=== PATIENT | male | born 1960 | race Caucasian/White ===

== ENCOUNTER 2020-09-18 07:42 | Outpatient (REF) | payer OTHER, SELFPAY ==
[2020-09-18 08:20] LABS: Basophils Percent Auto 0.6 % (0-2); Eosinophils Absolute Auto 0.1 X10*3/uL (0.0-0.4); Eosinophils Percent Auto 1.5 % (0-4); Hematocrit 38.8 % (42-52); Imm Gran Abs Auto 0.06 X10*3/uL (0.00-0.03); Imm Gran Pct Auto 0.9 % (0.0-0.4); Lymphocytes Absolute Auto 0.8 X10*3/uL (1.2-4.9); Lymphocytes Percent Auto 12.8 % (20-40); MANUAL DIFF FLAG NO; Mean Corpuscular HGB Conc 33.5 g/dl (31.0-36.0); Mean Corpuscular Hemoglobin 29.2 pg (27.0-33.0); Mean Corpuscular Volume 87.2 fL (80-98); Mean Platelet Volume 8.4 fL (9.4-12.4); Monocytes Absolute Auto 0.7 X10*3/uL (0.1-1.2); Monocytes Percent Auto 10.3 % (2-11); Neutrophils Absolute Auto 4.8 X10*3/uL (2.0-8.3); Neutrophils Percent Auto 73.9 % (45-73); Platelet Count 300 X10*3/uL (160-400); Red Blood Count 4.45 X10*6/uL (4.60-5.80); Red Cell Distribution Width 12.2 % (11.0-16.0); White Blood Count 6.5 X10*3/uL (4.8-10.8)
[2020-09-18 08:42] LABS: Alanine Aminotransferase 34 U/L (0-40); Albumin Level 4.6 g/dL (3.5-5.0); Alkaline Phosphatase 97 U/L (39-117); Anion Gap 13 (12-20); Aspartate Amino Transferase 21 U/L (5-37); Bilirubin Total 0.5 mg/dL (0.0-1.0); Blood Urea Nitrogen 21 mg/dL (9-16); Calcium 9.8 mg/dL (8.4-10.2); Carbon Dioxide 28 mmol/L (22-29); Chloride 101 mmol/L (96-108); Estimated Glomerular Filt Rate > 60; Glucose Fasting 102 mg/dL (60-99); Potassium 4.2 mmol/l (3.3-5.1); Sodium 138 mmol/L (135-145); Total Protein 7.1 g/dL (6.5-8.0)
[2020-09-18 09:02] LABS: T4 Thyroxine 8.1 ug/dL (4.5-12.0); Thyroid Stimulating Hormone 1.85 uIU/mL (0.32-4.0)
[2020-09-18 09:16] LABS: Folate 10.2 ng/mL (> or = 4.0); Vitamin B12 440 pg/mL (200-900)
[2020-09-18 09:25] LABS: Uric Acid 7.9 mg/dL (3.4-7.0)
[2020-09-25 14:17] LABS: Lipoprotein A 203 nmol/L (<75)
== END 2020-09-18 07:43 | disposition home or self-care (01) ==
LOC: HO.LAB 07:42
PROVIDERS: PCP Internal Medicine; Visit Provider Internal Medicine
DX: I48.91 Unspecified atrial fibrillation (principal); E03.9 Hypothyroidism, unspecified; M10.9 Gout, unspecified; I10 Essential (primary) hypertension; E78.5 Hyperlipidemia, unspecified; I77.819 Aortic ectasia, unspecified site; G47.33 Obstructive sleep apnea (adult) (pediatric); F41.9 Anxiety disorder, unspecified; E66.9 Obesity, unspecified
CPT/HCPCS: 36415; 80053; 82607; 82746; 83695; 84436; 84443; 84550; 85025

== ENCOUNTER → 2020-10-21 08:24 | Outpatient (BNVA) | payer OTHER, SELFPAY | PROVIDERS: PCP Internal Medicine; Visit Provider Urology | DX: N52.9 Male erectile dysfunction, unspecified (principal); N40.1 Benign prostatic hyperplasia with lower urinary tract symptoms; R35.0 Frequency of micturition; Z79.899 Other long term (current) drug therapy | CPT/HCPCS: 51798; 81002 ==

== ENCOUNTER 2021-01-04 07:50 | Outpatient (REF) | payer OTHER, SELFPAY ==
[2021-01-04 08:23] LABS: MANUAL DIFF FLAG NO
[2021-01-04 08:31] LABS: Basophils Percent Auto 0.5 % (0-2); Eosinophils Absolute Auto 0.1 X10*3/uL (0.0-0.4); Eosinophils Percent Auto 2.1 % (0-4); Hematocrit 38.3 % (42-52); Hemoglobin 12.7 g/dl (14.0-18.0); Imm Gran Abs Auto 0.02 X10*3/uL (0.00-0.03); Imm Gran Pct Auto 0.4 % (0.0-0.4); Immature Retic Fraction 6.5 % (2.3-13.4); Lymphocytes Absolute Auto 0.8 X10*3/uL (1.2-4.9); Lymphocytes Percent Auto 14.5 % (20-40); Mean Corpuscular HGB Conc 33.2 g/dl (31.0-36.0); Mean Corpuscular Hemoglobin 28.8 pg (27.0-33.0); Mean Corpuscular Volume 86.8 fL (80-98); Mean Platelet Volume 8.5 fL (9.4-12.4); Monocytes Absolute Auto 0.7 X10*3/uL (0.1-1.2); Monocytes Percent Auto 11.5 % (2-11); Platelet Count 274 X10*3/uL (160-400); Red Blood Count 4.41 X10*6/uL (4.60-5.80); Red Cell Distribution Width 12.4 % (11.0-16.0); Retic HGB Equivalent 34.2 pg (30.0-35.0); Reticulocyte Percent 1.7 % (0.5-1.8); Reticulocytes Absolute 0.073 X10*6/uL (0.026-0.095); White Blood Count 5.6 X10*3/uL (4.8-10.8)
[2021-01-04 08:57] LABS: B Type Natriuretic Peptide 12 pg/mL (<100)
[2021-01-04 08:59] LABS: Estimated Average Glucose 105 mg/dL; Hemoglobin A1c % 5.3 %
[2021-01-04 09:03] LABS: Alanine Aminotransferase 34 U/L (0-40); Albumin Level 4.6 g/dL (3.5-5.0); Alkaline Phosphatase 92 U/L (39-117); Anion Gap 11 (12-20); Aspartate Amino Transferase 25 U/L (5-37); Bilirubin Total 0.5 mg/dL (0.0-1.0); Blood Urea Nitrogen 17 mg/dL (9-16); Calcium 9.6 mg/dL (8.4-10.2); Carbon Dioxide 29 mmol/L (22-29); Chloride 103 mmol/L (96-108); Cholesterol 148 mg/dL; Estimated Glomerular Filt Rate > 60; Glucose Random 107 mg/dL (60-115); HDL Cholesterol 29 mg/dL; Iron 73 mcg/dL (45-160); LDL Cholesterol Calculated 93 mg/dl; Percent Iron Saturation 21 % (15-50); Potassium 4.3 mmol/L (3.3-5.1); Sodium 139 mmol/L (135-145); Total Iron Binding Capacity 354 mcg/dL (228-428); Total Protein 7.1 g/dL (6.5-8.0); Triglycerides 130 mg/dL; Unsaturated Iron Binding 281 ug/dL
[2021-01-04 09:20] LABS: Erythrocyte Sedimentation Rate 12 MM/HR (0-15)
[2021-01-04 09:49] LABS: Ferritin 244 ng/mL (20-250); Free T4 (Free Thyroxine) 1.03 ng/dL (0.71-1.85); Thyroid Stimulating Hormone 1.39 uIU/mL (0.32-4.0)
[2021-01-04 10:19] LABS: Prostate Specific Antigen Scr 0.82 ng/mL (<0.05-4.0)
[2021-01-06 03:55] LABS: Folate 11.6 ng/mL (> or = 4.0); Vitamin B12 366 pg/mL (200-900)
[2021-01-09 03:26] LABS: CK-BB None Detected (None Detected); CK-MB 0 % (<5); CK-MM 100 % (95-100); Creatine Kinase,Total,Serum 76 U/L (44-196)
== END 2021-01-04 07:51 | disposition home or self-care (01) ==
LOC: HO.LAB 07:50
PROVIDERS: PCP Internal Medicine; Visit Provider Internal Medicine
DX: R29.898 Other symptoms and signs involving the musculoskeletal system (principal); R73.02 Impaired glucose tolerance (oral); I48.0 Paroxysmal atrial fibrillation; N18.1 Chronic kidney disease, stage 1; E03.9 Hypothyroidism, unspecified; E78.00 Pure hypercholesterolemia, unspecified
CPT/HCPCS: 36415; 80053; 80061; 82552; 82607; 82728; 82746; 83036; 83540; 83880; 84153; 84439; 84443; 85025; 85045; 85652

== ENCOUNTER 2021-02-17 12:06 | Outpatient (REF) | payer OTHER, BC, SELFPAY ==
--- NOTE | ~2021-02-17 | XR_ITS ---
EXAMINATION: XR LUMBAR SPINE XR PELVIS AND HIP, BILATERAL CLINICAL INFORMATION: Lumbar spine 10/31/2015 COMPARISON: None TECHNIQUE: Three views lumbar spine. AP pelvis and bilateral hips five views. FINDINGS: LUMBAR SPINE: There is normal lumbar lordosis. There is mild loss of L2-L3 disc height with ventral spondylosis. Minimal loss of lower thoracic disc levels is noted, as well. The rest of the disc heights are normal. The vertebral heights and alignment is normal. There is mild ventral spondylosis throughout lumbar spine, most prominent at the L2-L3 disc level. No fracture, lytic or sclerotic process seen. The paravertebral soft tissues are normal. AP PELVIS AND BILATERAL HIPS: There is normal symmetry of bilateral hip joints and SI joints. No visible fracture or bony erosive changes. No lytic or sclerotic process seen. The soft tissues are normal. AP and frog-leg views right hip reveal no acute fracture, dislocation or bony erosive changes. No soft tissue calcification. Subchondral cystic changes are seen along the lateral acetabulum. AP and frog-leg views left hip reveal mild lateral acetabular spurring with cystic changes. There is no acute fracture, lytic or sclerotic process. The soft tissues are normal. XR/XR hip BI w PEL1V IMPRESSION: Mild early degenerative changes bilateral lateral hip joints. No acute fracture or dislocation. The rest of the pelvic bones are unremarkable. Degenerative disc changes L2-L3 disc level. There is ventral spondylosis throughout the lumbar spine, most prominent at the L2-L3 disc level.
--- NOTE | ~2021-02-17 | XR_ITS ---
EXAMINATION: XR LUMBAR SPINE XR PELVIS AND HIP, BILATERAL CLINICAL INFORMATION: Lumbar spine 10/31/2015 COMPARISON: None TECHNIQUE: Three views lumbar spine. AP pelvis and bilateral hips five views. FINDINGS: LUMBAR SPINE: There is normal lumbar lordosis. There is mild loss of L2-L3 disc height with ventral spondylosis. Minimal loss of lower thoracic disc levels is noted, as well. The rest of the disc heights are normal. The vertebral heights and alignment is normal. There is mild ventral spondylosis throughout lumbar spine, most prominent at the L2-L3 disc level. No fracture, lytic or sclerotic process seen. The paravertebral soft tissues are normal. AP PELVIS AND BILATERAL HIPS: There is normal symmetry of bilateral hip joints and SI joints. No visible fracture or bony erosive changes. No lytic or sclerotic process seen. The soft tissues are normal. AP and frog-leg views right hip reveal no acute fracture, dislocation or bony erosive changes. No soft tissue calcification. Subchondral cystic changes are seen along the lateral acetabulum. AP and frog-leg views left hip reveal mild lateral acetabular spurring with cystic changes. There is no acute fracture, lytic or sclerotic process. The soft tissues are normal. XR/XR lumbar spine 2-3V IMPRESSION: Mild early degenerative changes bilateral lateral hip joints. No acute fracture or dislocation. The rest of the pelvic bones are unremarkable. Degenerative disc changes L2-L3 disc level. There is ventral spondylosis throughout the lumbar spine, most prominent at the L2-L3 disc level.
== END 2021-02-17 12:07 | disposition home or self-care (01) ==
LOC: HO.XRAY 12:06
PROVIDERS: PCP Internal Medicine; Visit Provider Internal Medicine
DX: R29.898 Other symptoms and signs involving the musculoskeletal system (principal)
CPT/HCPCS: 72100; 73521

== ENCOUNTER 2021-03-18 15:19 | Outpatient (REF) | payer OTHER, BC, SELFPAY ==
--- NOTE | ~2021-03-18 | US_ITS ---
EXAMINATION: US PELVIS LIMITED (BLADDER) CLINICAL INFORMATION: Benign prostatic hyperplasia without lower urinary tract symptoms. COMPARISON: CT abdomen and pelvis without contrast dated 11/14/2019. TECHNIQUE: Real-time imaging of the bladder. FINDINGS: BLADDER: Well distended and normal. Bilateral ureteral jets are demonstrated. Prevoid bladder volume is 153 mL. Postvoid bladder volume is 11.8 mL. Prostate volume is 45 mL. US/US bladder IMPRESSION: No significant postvoid residual. No evidence of obstructive uropathy. Prostate volume is mildly increased.
== END 2021-03-18 15:20 | disposition home or self-care (01) ==
LOC: HO.US 15:19
PROVIDERS: Visit Provider Internal Medicine
DX: N40.0 Benign prostatic hyperplasia without lower urinary tract symptoms (principal)
CPT/HCPCS: 76857

== ENCOUNTER 2021-05-07 13:58 | Outpatient (REF) | payer OTHER, BC, SELFPAY ==
[2021-05-07 15:04] LABS: MANUAL DIFF FLAG NO
[2021-05-07 15:06] LABS: Basophils Percent Auto 0.5 % (0-2); Eosinophils Absolute Auto 0.2 X10*3/uL (0.0-0.4); Eosinophils Percent Auto 2.3 % (0-4); Hematocrit 36.2 % (42-52); Hemoglobin 12.5 g/dl (14.0-18.0); Imm Gran Abs Auto 0.06 X10*3/uL (0.00-0.03); Imm Gran Pct Auto 0.7 % (0.0-0.4); Mean Corpuscular HGB Conc 34.5 g/dl (31.0-36.0); Mean Corpuscular Hemoglobin 29.4 pg (27.0-33.0); Mean Corpuscular Volume 85.2 fL (80-98); Mean Platelet Volume 8.6 fL (9.4-12.4); Monocytes Absolute Auto 0.8 X10*3/uL (0.1-1.2); Monocytes Percent Auto 9.3 % (2-11); Neutrophils Absolute Auto 6.1 X10*3/uL (2.0-8.3); Neutrophils Percent Auto 75.2 % (45-73); Platelet Count 284 X10*3/uL (160-400); Red Blood Count 4.25 X10*6/uL (4.60-5.80); Red Cell Distribution Width 12.3 % (11.0-16.0); White Blood Count 8.2 X10*3/uL (4.8-10.8)
[2021-05-07 15:37] LABS: Alanine Aminotransferase 22 U/L (0-40); Albumin Level 4.7 g/dL (3.5-5.0); Alkaline Phosphatase 93 U/L (39-117); Anion Gap 13 (12-20); Aspartate Amino Transferase 20 U/L (5-37); Bilirubin Total 0.7 mg/dL (0.0-1.0); Blood Urea Nitrogen 25 mg/dL (9-16); C Reactive Protein 0.46 mg/dL (< or = 0.50); Calcium 10.5 mg/dL (8.4-10.2); Carbon Dioxide 27 mmol/L (22-29); Chloride 102 mmol/L (96-108); Estimated Glomerular Filt Rate 55; Glucose Random 105 mg/dL (60-115); Lactate Dehydrogenase 176 U/L (118-273); Potassium 4.1 mmol/L (3.3-5.1); Sodium 138 mmol/L (135-145); Total Protein 7.5 g/dL (6.5-8.0)
[2021-05-07 15:46] LABS: Thyroid Stimulating Hormone 1.34 uIU/mL (0.32-4.0)
[2021-05-07 15:59] LABS: Erythrocyte Sedimentation Rate 18 MM/HR (0-15)
[2021-05-13 13:31] LABS: Vitamin D 25-OH, D2 <4 ng/mL; Vitamin D 25-OH, D3 35 ng/mL; Vitamin D 25-OH, Total 35 ng/mL (30-100)
== END 2021-05-07 13:59 | disposition home or self-care (01) ==
LOC: HO.LAB 13:58
PROVIDERS: PCP Internal Medicine; Visit Provider Student in an Organized Health Care Education/Training Program
DX: M79.10 Myalgia, unspecified site (principal)
CPT/HCPCS: 36415; 80053; 82306; 82550; 83615; 84443; 85025; 85652; 86140

== ENCOUNTER 2021-05-22 09:35 | Outpatient (REF) | payer OTHER, BC, SELFPAY ==
[2021-05-23 17:51] LABS: PTHI 63 pg/mL (14-64)
== END 2021-05-22 09:36 | disposition home or self-care (01) ==
LOC: HO.LAB 09:35
PROVIDERS: PCP Internal Medicine; Visit Provider Student in an Organized Health Care Education/Training Program
DX: M79.10 Myalgia, unspecified site (principal); M10.9 Gout, unspecified; E83.52 Hypercalcemia; N18.1 Chronic kidney disease, stage 1
CPT/HCPCS: 36415; 83970; 84550

== ENCOUNTER 2022-05-15 13:30 | Outpatient (REF) | payer OTHER, SELFPAY ==
[2022-05-15 13:41] LABS: MANUAL DIFF FLAG NO
[2022-05-15 14:15] LABS: Basophils Percent Auto 0.6 % (0-2); Eosinophils Absolute Auto 0.2 X10*3/uL (0.0-0.4); Eosinophils Percent Auto 2.2 % (0-4); Hematocrit 35.9 % (42.0-52.0); Hemoglobin 12.2 g/dl (14.0-18.0); Imm Gran Abs Auto 0.06 X10*3/uL (0.00-0.03); Imm Gran Pct Auto 0.8 % (0.0-0.4); Lymphocytes Percent Auto 14.1 % (20-40); Mean Corpuscular Hemoglobin 29.3 pg (27.0-33.0); Mean Corpuscular Volume 86.1 fL (80.0-98.0); Mean Platelet Volume 8.5 fL (9.4-12.4); Monocytes Absolute Auto 0.8 X10*3/uL (0.1-1.2); Monocytes Percent Auto 11.3 % (2-11); Neutrophils Absolute Auto 5.1 x10*3/uL (2.0-8.3); Platelet Count 299 X10*3/uL (160-400); Red Blood Count 4.17 X10*6/uL (4.60-5.80); Red Cell Distribution Width 12.9 % (11.0-16.0); White Blood Count 7.2 X10*3/uL (4.8-10.8)
[2022-05-15 14:57] LABS: Erythrocyte Sedimentation Rate 13 MM/HR (0-15)
[2022-05-15 15:05] LABS: Alanine Aminotransferase 26 U/L (0-40); Albumin Level 4.5 g/dL (3.5-5.0); Alkaline Phosphatase 112 U/L (39-117); Anion Gap 15 (12-20); Aspartate Amino Transferase 19 U/L (5-37); Bilirubin Total 0.5 mg/dL (0.0-1.0); Blood Urea Nitrogen 21 mg/dL (9-16); C Reactive Protein 0.27 mg/dL (< or = 0.50); Calcium 10.3 mg/dL (8.4-10.2); Carbon Dioxide 25 mmol/L (22-29); Chloride 103 mmol/L (96-108); Estimated Glomerular Filt Rate 56; Glucose Random 126 mg/dL (60-115); Potassium 4.1 mmol/L (3.3-5.1); Sodium 139 mmol/L (135-145); Total Protein 7.3 g/dL (6.5-8.0)
[2022-05-15 15:15] LABS: Uric Acid 6.2 mg/dL (3.4-7.0)
== END 2022-05-15 13:31 | disposition home or self-care (01) ==
LOC: HO.LAB 13:30
PROVIDERS: PCP Internal Medicine; Visit Provider Internal Medicine
DX: M10.9 Gout, unspecified (principal)
CPT/HCPCS: 36415; 80053; 84443; 84550; 85025; 85652; 86140

== ENCOUNTER 2022-09-01 07:02 | Outpatient (REF) | payer OTHER, SELFPAY ==
[2022-09-01 07:09] LABS: MANUAL DIFF FLAG NO
[2022-09-01 07:45] LABS: Basophils Absolute Auto 0.1 X10*3/uL (0.0-0.2); Basophils Percent Auto 0.6 % (0-2); Eosinophils Absolute Auto 0.2 X10*3/uL (0.0-0.4); Eosinophils Percent Auto 2.7 % (0-4); Hematocrit 40.8 % (42.0-52.0); Hemoglobin 13.3 g/dl (14.0-18.0); Imm Gran Abs Auto 0.05 X10*3/uL (0.00-0.03); Imm Gran Pct Auto 0.6 % (0.0-0.4); Immature Retic Fraction 8.6 % (2.3-13.4); Mean Corpuscular HGB Conc 32.6 g/dl (31.0-36.0); Mean Corpuscular Hemoglobin 28.6 pg (27.0-33.0); Mean Corpuscular Volume 87.7 fL (80.0-98.0); Mean Platelet Volume 8.4 fL (9.4-12.4); Monocytes Absolute Auto 1.2 X10*3/uL (0.1-1.2); Monocytes Percent Auto 14.1 % (2-11); Neutrophils Absolute Auto 5.8 x10*3/uL (2.0-8.3); Platelet Count 285 X10*3/uL (160-400); Red Blood Count 4.65 X10*6/uL (4.60-5.80); Red Cell Distribution Width 13.4 % (11.0-16.0); Retic HGB Equivalent 35.2 pg (30.0-35.0); Reticulocyte Percent 1.6 % (0.5-1.8); Reticulocytes Absolute 0.076 X10*6/uL (0.026-0.095); White Blood Count 8.3 X10*3/uL (4.8-10.8)
[2022-09-01 07:50] LABS: Estimated Average Glucose 111 mg/dL; Hemoglobin A1C 120.8209 umol/L; Hemoglobin A1c % 5.5 %
[2022-09-01 08:03] LABS: Alanine Aminotransferase 31 U/L (0-40); Albumin Level 4.5 g/dL (3.5-5.0); Alkaline Phosphatase 116 U/L (39-117); Anion Gap 15 (12-20); Aspartate Amino Transferase 18 U/L (5-37); Bilirubin Total 0.3 mg/dL (0.0-1.0); Blood Urea Nitrogen 17 mg/dL (9-16); Calcium 9.9 mg/dL (8.4-10.2); Carbon Dioxide 29 mmol/L (22-29); Chloride 101 mmol/L (96-108); Cholesterol 158 mg/dL; Estimated Glomerular Filt Rate 57; Glucose Random 88 mg/dL (60-115); HDL Cholesterol 31 mg/dL; Iron 44 mcg/dL (45-160); LDL Cholesterol Calculated 95 mg/dl; Percent Iron Saturation 13 % (15-50); Potassium 4.5 mmol/L (3.3-5.1); Sodium 140 mmol/L (135-145); Total Iron Binding Capacity 340 mcg/dL (228-428); Total Protein 7.4 g/dL (6.5-8.0); Triglycerides 162 mg/dL; Unsaturated Iron Binding 296 ug/dL
[2022-09-01 08:12] LABS: B Type Natriuretic Peptide 15 pg/mL (<100)
[2022-09-01 08:28] LABS: Ferritin 222 ng/mL (20-250); Free T4 (Free Thyroxine) 0.95 ng/dL (0.71-1.85); Prostate Specific Antigen Scr 1.16 ng/mL (<0.05-4.0); Thyroid Stimulating Hormone 2.33 uIU/mL (0.32-4.0)
[2022-09-01 08:37] LABS: Folate 10.2 ng/mL (> or = 4.0); Vitamin B12 413 pg/mL (200-900)
== END 2022-09-01 07:03 | disposition home or self-care (01) ==
LOC: HO.LAB 07:02
PROVIDERS: PCP Internal Medicine; Visit Provider Internal Medicine
DX: E03.9 Hypothyroidism, unspecified (principal); N18.1 Chronic kidney disease, stage 1; N40.1 Benign prostatic hyperplasia with lower urinary tract symptoms; R35.0 Frequency of micturition; E78.00 Pure hypercholesterolemia, unspecified; R73.02 Impaired glucose tolerance (oral); I48.0 Paroxysmal atrial fibrillation; Z12.5 Encounter for screening for malignant neoplasm of prostate
CPT/HCPCS: 36415; 80053; 80061; 82607; 82728; 82746; 83036; 83540; 83880; 84153; 84439; 84443; 85025; 85045

== ENCOUNTER 2023-02-18 06:36 | Outpatient (REF) | payer OTHER, SELFPAY ==
[2023-02-18 06:46] LABS: MANUAL DIFF FLAG NO
[2023-02-18 07:22] LABS: Basophils Absolute Auto 0.1 X10*3/uL (0.0-0.2); Basophils Percent Auto 0.8 % (0-2); Eosinophils Absolute Auto 0.2 X10*3/uL (0.0-0.4); Hematocrit 40.8 % (42.0-52.0); Hemoglobin 13.5 g/dl (14.0-18.0); Imm Gran Abs Auto 0.06 X10*3/uL (0.00-0.03); Imm Gran Pct Auto 0.8 % (0.0-0.4); Immature Retic Fraction 11.8 % (2.3-13.4); Lymphocytes Absolute Auto 1.1 X10*3/uL (1.2-4.9); Lymphocytes Percent Auto 15.3 % (20-40); Mean Corpuscular HGB Conc 33.1 g/dl (31.0-36.0); Mean Corpuscular Hemoglobin 28.6 pg (27.0-33.0); Mean Corpuscular Volume 86.4 fL (80.0-98.0); Mean Platelet Volume 8.4 fL (9.4-12.4); Monocytes Absolute Auto 0.7 X10*3/uL (0.1-1.2); Monocytes Percent Auto 9.4 % (2-11); Neutrophils Absolute Auto 5.2 x10*3/uL (2.0-8.3); Neutrophils Percent Auto 70.7 % (45-73); Platelet Count 295 X10*3/uL (160-400); Red Blood Count 4.72 X10*6/uL (4.60-5.80); Retic HGB Equivalent 34.6 pg (30.0-35.0); Reticulocyte Percent 1.8 % (0.5-1.8); Reticulocytes Absolute 0.084 X10*6/uL (0.026-0.095); White Blood Count 7.3 X10*3/uL (4.8-10.8)
[2023-02-18 07:59] LABS: Alanine Aminotransferase 36 U/L (0-40); Albumin Level 4.5 g/dL (3.5-5.0); Alkaline Phosphatase 121 U/L (39-117); Anion Gap 12 (12-20); Aspartate Amino Transferase 23 U/L (5-37); Bilirubin Total 0.6 mg/dL (0.0-1.0); Blood Urea Nitrogen 20 mg/dL (9-16); Carbon Dioxide 27 mmol/L (22-29); Chloride 105 mmol/L (96-108); Cholesterol 154 mg/dL; Estimated Glomerular Filt Rate 57; Glucose Random 100 mg/dL (60-115); HDL Cholesterol 28 mg/dL; Iron 66 mcg/dL (45-160); LDL Cholesterol Calculated 96 mg/dl; Percent Iron Saturation 22 % (15-50); Potassium 4.3 mmol/L (3.3-5.1); Sodium 140 mmol/L (135-145); Total Iron Binding Capacity 297 mcg/dL (228-428); Triglycerides 154 mg/dL; Unsaturated Iron Binding 231 ug/dL
[2023-02-18 09:01] LABS: Ferritin 237 ng/mL (20-250); Folate 4.8 ng/mL (> or = 4.0); Free T4 (Free Thyroxine) 0.95 ng/dL (0.71-1.85); Prostate Specific Antigen Scr 0.98 ng/mL (<0.05-4.0); Thyroid Stimulating Hormone 2.08 uIU/mL (0.32-4.0); Vitamin B12 382 pg/mL (200-900)
== END 2023-02-18 06:37 | disposition home or self-care (01) ==
LOC: HO.LAB 06:36
PROVIDERS: PCP Internal Medicine; Visit Provider Internal Medicine
DX: I48.0 Paroxysmal atrial fibrillation (principal); E78.00 Pure hypercholesterolemia, unspecified; Z12.5 Encounter for screening for malignant neoplasm of prostate
CPT/HCPCS: 36415; 80053; 80061; 82607; 82728; 82746; 83540; 84153; 84439; 84443; 85025; 85045

== ENCOUNTER 2023-05-25 08:51 | Outpatient (AMB) | payer MEDICARE, OTHER, SELFPAY ==
[2023-05-25 08:55] VITALS: BP 140/78; PULSE 69; O2SAT 97; BMI 34.7
--- NOTE | 2023-05-25 08:55 | A.OFFPC_ITS ---
Vital Signs 05/25/23 08:55 Height 6 ft 2 in Weight 270 lb BMI 34.7 BP 140/78 H Blood Pressure Location Lt brachial Position Sitting Pulse 69 Pulse Source Pulse Oximeter Pulse Oximetry (%) 97 Oxygen Delivery Method Room Air Intake Visit Reasons: Annual Exam Allergies No Known Allergies Allergy (Verified 05/25/23 08:56) Medication List - Last Reconciled 05/25/23 by Ramon Baird MD allopurinol 300 mg PO DAILY amitriptyline 25 mg PO BEDTIME 90 days apixaban (Eliquis) 5 mg PO BID atorvastatin 20 mg PO DAILY carvedilol 25 mg PO BID chlorthalidone 0.5 tablet daily; clindamycin phosphate 1% 1 appl topical DAILY flecainide 100 mg PO Q12H levothyroxine 175 mcg PO DAILY lisinopril 40 mg PO DAILY tadalafil 20 mg PO DAILY PRN Tobacco use date assessed: 02/25/23 Fall risk assessment: No Falls in past year Last assessed Fall Risk: 05/25/23 Dental Screening Dental Screen Date: 05/25/23 Did you have a dental visit in the last 12 months?: Yes Did you have a dental problem in the last 6 months where you did not have access to dental care?: No Was dental information given to patient?: Patient has dentist HPI Annual Exam HPI Details 63-year-old obese male with atrial fibrillation hypothyroidism hypertension hypercholesterolemia impaired glucose tolerance BPH chronic kidney disease obstructive sleep apnea and gout last seen in February 2023. Patient is here for physical exam. Review of the notes had an echocardiogram done March 2023 showing normal left ventricular size and systolic function mild left ventricular hypertrophy left ventricular ejection fraction is 60-65% normal right ventricular size and function mild mitral regurgitation mild increased ascending aorta size to 3.9. No change since 2019. R shoulder pain - repair for tear Dr. Deleon-May 2023 repair arthroscopic- [facility] Medical History (Updated 05/25/23 @ 09:22 by Ramon Baird MD) Anxiety Aortic dilatation BPH (benign prostatic hyperplasia) BPH (benign prostatic hyperplasia) Erectile dysfunction Gout Hypercholesterolemia Hypertension Hypothyroid Impaired glucose tolerance Interstitial cystitis Lumbar spondylosis Obesity (BMI 30-39.9) Obstructive sleep apnea Paroxysmal atrial fibrillation Surgical History (Updated 05/21/22 @ 08:50 by Ramon Baird MD) History of ankle surgery History of prostatectomy Family History (Updated 02/25/23 @ 08:22 by Noemi Clemons CMA) Father Stroke Mother Alzheimers disease Social History (Updated 05/25/23 @ 09:32 by Ramon Baird MD) Household Members: Spouse Housing: House Alcohol intake: current Alcohol intake frequency: holidays/special occasions only Patient Tobacco Use Status: Never used Tobacco e-Cigarette/Vaping Use: Never Used Second Hand Smoke Exposure: No service: No Current occupational status: employed Cognitive needs: No Hearing needs: No Vision needs: No Questionnaire PHQ-9 Over the last 2 weeks, how often have you been bothered by any of the following problems? 1. Little interest or pleasure in doing things: not at all 2. Feeling down, depressed, or hopeless: not at all 3. Trouble falling or staying asleep, or sleeping too much: not at all 4. Feeling tired or having little energy: not at all 5. Poor appetite or overeating: not at all 6. Feeling bad about yourself - or that you are a failure or have let yourself or your family down: not at all 7. Trouble concentrating on things, such as reading the newspaper or watching television: not at all 8. Moving or speaking so slowly that other people could have noticed. Or the opposite - being so fidgety or restless that you have been moving around a lot more than usual: not at all 9. Thoughts that you would be better off or of hurting yourself in some way: not at all Total score: 0 Depression Screening Interpretation: Negative Source: Developed by Drs. Scott Barnes, Jaren Barton and colleagues, with an educational travon from [employer]. Thrive Questionnaire Date Thrive assessed: 02/25/23 AUDIT C Alcohol Use Questionnaire (AUDIT-C) 1. How often do you have a drink containing alcohol?: 2-3 times a week 2. How many drinks containing alcohol do you have on a typical day when you are drinking?: 1 or 2 3. How often do you have six or more drinks on one occasion?: Never Total Score: 3 LUISA-7 AMB Questionnaire LUISA-7 Date LUISA - 7 assessed: 02/25/23 Source: Developed by Drs. Scott Barnes, Jaren Barton and colleagues, with an educational travon from [employer]. Review of Systems Const Denies poor appetite and Denies weakness Eyes Denies no additional complaints ENT Reports Normal hearing present, Denies dizziness, Denies nasal congestion, Denies tinnitus and Denies sore throat Card Denies chest pain, Denies syncope, Denies rapid heart rate and Denies dyspnea Resp Denies cough and Denies dyspnea GI Denies change in stool character, Reports constipation, Denies diarrhea, Denies nausea and Denies vomiting Denies dysuria and Denies urinary frequency Neuro Reports Normal hearing present, Denies confusion, Denies dizziness, Denies syncope and Denies weakness Psych Denies confusion Physical exam (Primary Care) Vital Signs: Last Vital Signs Pulse 69 05/25/23 08:55 BP 140/78 H 05/25/23 08:55 Pulse Ox 97 05/25/23 08:55 Oxygen Delivery Method Room Air 05/25/23 08:55 BMI result Body Mass Index 34.7 Tobacco/Smoking Status: Tobacco use Status Tobacco use date assessed 02/25/23 05/25/23 08:56 Patient Tobacco Use Status Never used Tobacco 05/25/23 08:56 e-Cigarette/Vaping Use Never Used 05/25/23 08:56 PHQ-9: PHQ-9 Score PHQ-9: Total score 0 05/25/23 09:07 Depression Screening Interpretation: Negative Thrive Assessment: Date of Thrive Assessment Date Thrive assessed 02/25/23 05/25/23 08:56 Const General: No confusion Orientation/consciousness: No confusion HENMT Head: Yes normocephalic Ears: external ears normal and TM's normal bilaterally Face and sinus: Yes normal facial exam Mouth: moist mucous membranes Throat: Yes tonsils normal Eyes Conjunctivae: conjunctivae normal Pupils: Equal, round and reactive pupils present and Pupil accommodation reflex normal Direct Ophthalmoscopy: normal light reflex Neck Neck: No lymphadenopathy Thyroid: Thyroid normal Chest Chest palpation & inspection: normal inspection of the chest Resp Effort & Inspection: normal respiratory effort and no audible wheezes Auscultation: clear to auscultation bilaterally, no crackles, no wheezes and lung sounds not diminished Cardio Rate: regular rate Rhythm: regular rhythm Peripheral pulses: radial pulses present and dorsalis pedis present GI Other: guaiac negative prostate n Palpation (GI): no masses Auscultation: normal bowel sounds and normoactive bowel sounds Skin General skin exam: no rashes or lesions noted Rashes: no rashes Neuro General: No confusion Cranial nerves: Yes Equal, round and reactive pupils present and Yes Normal hearing present Cognition (Neuro): normal cognition Gait exam (Neuro): Normal gait present Motor exam (neuro): 5/5 motor strength present throughout Deep tendon reflexes (DTR's): Right brachioradialis reflex intensity grade: 2+, Left brachioradialis reflex intensity grade: 2+, Right patellar reflex intensity grade: 2+ and Left patellar reflex intensity grade: 2+ Extrem General: No edema Assessment and Plan Assessment & Plan (1) Annual physical exam: Code(s): Z00.00 - Encounter for general adult medical examination without abnormal findings (2) Paroxysmal atrial fibrillation: Comment: Fourteen day event monitor August 2020 ablation, [place] February 2019 cardioversion August 2019 Nuclear scan myocardial normal my 56% September 2019March 2020 echo EF 65-70% ascending aorta 3.9 cm, March 2023 Code(s): I48.0 - Paroxysmal atrial fibrillation Plan: Continue with anticoagulation with Eliquis and flecainide (3) Hypothyroid: Code(s): E03.9 - Hypothyroidism, unspecified Qualifiers: Hypothyroidism type: acquired Qualified Code(s): E03.9 - Hypothyroidism, unspecified Plan: Continue with the thyroid medication (4) Hypertension: Code(s): I10 - Essential (primary) hypertension Qualifiers: Hypertension type: essential hypertension Qualified Code(s): I10 - Essential (primary) hypertension Plan: Continue with blood pressure medication. Decrease salt intake and exercise patient is taking carvedilol 25 mg twice a day chlorthalidone lisinopril 40 mg once a day (5) Hypercholesterolemia: Code(s): E78.00 - Pure hypercholesterolemia, unspecified Plan: Avoid fried foods, chicken skin, eggs, butter margarine, pastries and meat. Be it pork or beef they have a lot of cholesterol LDL goal of less than 130 patient is taking atorvastatin 20 mg once a day (6) Impaired glucose tolerance: Code(s): R73.02 - Impaired glucose tolerance (oral) Plan: Decrease the amount of carbohydrate intake, pasta, bread, rice and potatoes are all sugar and that is aside from all the sweet stuff, remember that fruits are good but they are Sweet also. (7) BPH (benign prostatic hyperplasia): Code(s): N40.0 - Benign prostatic hyperplasia without lower urinary tract symptoms Qualifiers: Lower urinary tract symptom presence: symptoms present Lower urinary tract symptom detail: urinary frequency Qualified Code(s): N40.1 - Benign pr ostatic hyperplasia with lower urinary tract symptoms; R35.0 - Frequency of micturition Plan: Continue with the Elavil (8) Chronic kidney disease (CKD) stage G1/A1, glomerular filtration rate (GFR) equal to or greater than 90 mL/min/1.73 square meter and albuminuria creatinine ratio less than 30 mg/g: Code(s): N18.1 - Chronic kidney disease, stage 1 Plan: Stable keep well hydrated avoid NSAIDs (9) Obesity (BMI 30-39.9): Code(s): E66.9 - Obesity, unspecified Plan: Diet and exercise (10) Obstructive sleep apnea: Comment: With CPAP Code(s): G47.33 - Obstructive sleep apnea (adult) (pediatric) Plan: Continue with CPAP more than 4 hours a night and benefits from this Medications: Refilled amitriptyline 25 mg PO BEDTIME 90 days 90 tabs 2RF atorvastatin 20 mg PO DAILY 90 tabs 3RF E78.00 - Pure hypercholesterolemia, uns pecified levothyroxine 175 mcg PO DAILY 90 tabs 3RF lisinopril 40 mg PO DAILY 90 tabs 3RF tadalafil administer approximately 30min before sexual activity; do not use more than 1 dose per 24hrs 20 mg PO DAILY PRN 45 tabs 3RF sexual activity N52.9 - Male erectile dysfunction, unspecified Coding Level of Care Code Est Pt Prev Care >65y([id number]) Diagnoses Annual physical exam Z00.00 Paroxysmal atrial fibrillation I48.0 Hypothyroid E03.9 Hypothyroidism type: acquired Hypertension I10 Hypertension type: essential hypertension Hypercholesterolemia E78.00 Impaired glucose tolerance R73.02 BPH (benign prostatic hyperplasia) N40.1; R35.0 Lower urinary tract symptom presence: symptoms present Lower urinary tract symptom detail: urinary frequency Chronic kidney disease (CKD) stage G1/A1, glomerular filtration rate (GFR) equal to or greater than 90 mL/min/1.73 square meter and albuminuria creatinine ratio less than 30 mg/g N18.1 Obesity (BMI 30-39.9) E66.9 Obstructive sleep apnea G47.33
== END 2023-05-25 09:57 | disposition home or self-care (01) ==
PROVIDERS: PCP Internal Medicine; Visit Provider Internal Medicine
DX: Z00.00 Encounter for general adult medical examination without abnormal findings (principal); I48.0 Paroxysmal atrial fibrillation; I12.9 Hypertensive chronic kidney disease with stage 1 through stage 4 chronic kidney disease, or unspecified chronic kidney disease; Z23 Encounter for immunization; N18.1 Chronic kidney disease, stage 1; E03.9 Hypothyroidism, unspecified; E78.00 Pure hypercholesterolemia, unspecified; R73.02 Impaired glucose tolerance (oral); N40.1 Benign prostatic hyperplasia with lower urinary tract symptoms; R35.0 Frequency of micturition; E66.9 Obesity, unspecified; G47.33 Obstructive sleep apnea (adult) (pediatric)
CPT/HCPCS: 90471; 90677; 99397

== ENCOUNTER 2023-08-26 07:10 | Outpatient (REF) | payer MEDICARE, OTHER, SELFPAY ==
[2023-08-26 07:20] LABS: MANUAL DIFF FLAG NO
[2023-08-26 08:12] LABS: Basophils Absolute Auto 0.1 X10*3/uL (0.0-0.2); Basophils Percent Auto 1.1 % (0-2); Eosinophils Absolute Auto 0.2 X10*3/uL (0.0-0.4); Eosinophils Percent Auto 3.5 % (0-4); Hematocrit 41.3 % (42.0-52.0); Hemoglobin 13.8 g/dl (14.0-18.0); Imm Gran Abs Auto 0.06 X10*3/uL (0.00-0.03); Lymphocytes Absolute Auto 1.1 X10*3/uL (1.2-4.9); Lymphocytes Percent Auto 17.5 % (20-40); Mean Corpuscular HGB Conc 33.4 g/dl (31.0-36.0); Mean Corpuscular Hemoglobin 29.4 pg (27.0-33.0); Mean Corpuscular Volume 87.9 fL (80.0-98.0); Mean Platelet Volume 8.5 fL (9.4-12.4); Monocytes Absolute Auto 0.9 X10*3/uL (0.1-1.2); Neutrophils Absolute Auto 3.9 x10*3/uL (2.0-8.3); Neutrophils Percent Auto 62.9 % (45-73); Platelet Count 265 X10*3/uL (160-400); Red Cell Distribution Width 13.2 % (11.0-16.0); White Blood Count 6.2 X10*3/uL (4.8-10.8)
[2023-08-26 08:43] LABS: Alanine Aminotransferase 34 U/L (0-40); Albumin Level 4.5 g/dL (3.5-5.0); Alkaline Phosphatase 107 U/L (39-117); Anion Gap 10 (12-20); Aspartate Amino Transferase 27 U/L (5-37); Bilirubin Total 0.5 mg/dL (0.0-1.0); Blood Urea Nitrogen 18 mg/dL (9-16); Calcium 10.3 mg/dL (8.4-10.2); Carbon Dioxide 30 mmol/L (22-29); Chloride 103 mmol/L (96-108); Cholesterol 176 mg/dL (<200); Estimated Glomerular Filt Rate > 60; Glucose Random 106 mg/dL (60-115); HDL Cholesterol 32 mg/dL (>40); LDL Cholesterol Calculated 116 mg/dL (<100); Potassium 4.2 mmol/L (3.3-5.1); Sodium 139 mmol/L (135-145); Total Protein 7.7 g/dL (6.5-8.0); Triglycerides 141 mg/dL (<150); Uric Acid 6.3 mg/dL (3.4-7.0)
[2023-08-26 09:02] LABS: Free T4 (Free Thyroxine) 1.08 ng/dL (0.71-1.85)
[2023-08-26 09:14] LABS: Vitamin B12 366 pg/mL (200-900)
== END 2023-08-26 07:11 | disposition home or self-care (01) ==
LOC: HO.LAB 07:10
PROVIDERS: PCP Internal Medicine; Visit Provider Internal Medicine
DX: N18.1 Chronic kidney disease, stage 1 (principal); E78.00 Pure hypercholesterolemia, unspecified; R73.02 Impaired glucose tolerance (oral); M10.9 Gout, unspecified
CPT/HCPCS: 36415; 80053; 80061; 82607; 82746; 84439; 84443; 84550; 85025

== ENCOUNTER 2023-09-01 08:20 | Outpatient (AMB) | payer MEDICARE, OTHER, SELFPAY ==
--- NOTE | 2023-09-01 08:24 | A.OFFPC_ITS ---
Vital Signs 09/01/23 08:25 Height 6 ft 2 in Weight 274 lb BMI 35.2 BP 134/72 Blood Pressure Location Lt brachial Position Sitting Pulse 73 Pulse Source Pulse Oximeter Pulse Oximetry (%) 98 Oxygen Delivery Method Room Air Intake Visit Reasons: afib Allergies No Known Allergies Allergy (Verified 09/01/23 08:25) Medication List - Last Reconciled 09/01/23 by Ramon Baird MD allopurinol 300 mg PO DAILY alprazolam 1 mg PO DAILY PRN amitriptyline 25 mg PO BEDTIME 90 days apixaban (Eliquis) 5 mg PO BID atorvastatin 20 mg PO DAILY carvedilol 25 mg PO BID chlorthalidone 0.5 tablet daily; clindamycin phosphate 1% 1 appl topical DAILY flecainide 100 mg PO Q12H levothyroxine 175 mcg PO DAILY lisinopril 40 mg PO DAILY tadalafil 20 mg PO DAILY PRN Tobacco use date assessed: 02/25/23 Fall risk assessment: No Falls in past year Last assessed Fall Risk: 09/01/23 Dental Screening Dental Screen Date: 09/01/23 Did you have a dental visit in the last 12 months?: Yes Did you have a dental problem in the last 6 months where you did not have access to dental care?: No Was dental information given to patient?: Patient has dentist HPI afib HPI Details 63-year-old obese male with atrial fibri llation, hypothyroidism, hypertension, hypercholesterolemia, impaired glucose tolerance chronic kidney disease obstructive sleep apnea and BPH last seen for physical in May 2023. Patient's colonoscopy is up-to-date August 2019 blood work done 07/19/2023 [employer] shows a mildly elevated blood sugar of 118 creatinine of 1.1 alkaline phosphatase mildly elevated 127 ALT of 42 normal C reactive protein and sed rate normal uric acid normal blood count. Patient has followed up with Cardiology June 2023. Had twice of pulmonary vein isolation March 2020 in October 2020 but still had recurrent atrial fibrillation patient has a planned right shoulder surgery moderate risk. 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 Deleon patient did have the surgery done and doing fine still limited on elevation of the right shoulder but patient is doing physical therapy. Patient has an upcoming travel and would like to have some alprazolam to help anxiety. With the Eliquis semi annual renal function test. [facility] Medical History (Updated 09/01/23 @ 08:46 by Ramon Baird MD) BPH (benign prostatic hyperplasia) Erectile dysfunction Obstructive sleep apnea Anxiety Aortic dilatation Obesity (BMI 30-39.9) Lumbar spondylosis Interstitial cystitis BPH (benign prostatic hyperplasia) Impaired glucose tolerance Hypercholesterolemia Hypertension Gout Hypothyroid Paroxysmal atrial fibrillation Surgical History (Updated 05/21/22 @ 08:50 by Ramon Baird MD) History of prostatectomy History of ankle surgery Family History (Updated 02/25/23 @ 08:22 by Noemi Clemons [facility]) Father Stroke Mother Alzheimers disease Social History (Updated 05/25/23 @ 09:32 by Ramon Baird MD) Household Members: Spouse Housing: House Alcohol intake: current Alcohol intake frequency: holidays/special occasions only Patient Tobacco Use Status: Never used Tobacco e-Cigarette/Vaping Use: Never Used Second Hand Smoke Exposure: No service: No Current occupational status: employed Cognitive needs: No Hearing needs: No Vision needs: No Questionnaire PHQ-9 Over the last 2 weeks, how often have you been bothered by any of the following problems? 1. Little interest or pleasure in doing things: not at all 2. Feeling down, depressed, or hopeless: not at all 3. Trouble falling or staying asleep, or sleeping too much: not at all 4. Feeling tired or having little energy: not at all 5. Poor appetite or overeating: not at all 6. Feeling bad about yourself - or that you are a failure or have let yourself or your family down: not at all 7. Trouble concentrating on things, such as reading the newspaper or watching television: not at all 8. Moving or speaking so slowly that other people could have noticed. Or the opposite - being so fidgety or restless that you have been moving around a lot more than usual: not at all 9. Thoughts that you would be better off or of hurting yourself in some way: not at all Total score: 0 Depression Screening Interpretation: Negative Depression Screening Done: Yes Source: Developed by Drs. Scott L. MollyCami brar Kurt Kroenke and colleagues, with an educational travon from [employer]. Thrive Questionnaire Date Thrive assessed: 02/25/23 AUDIT C Alcohol Use Questionnaire (AUDIT-C) 1. How often do you have a drink containing alcohol?: 2-3 times a week 2. How many drinks containing alcohol do you have on a typical day when you are drinking?: 1 or 2 3. How often do you have six or more drinks on one occasion?: Never Total Score: 3 LUISA-7 AMB Questionnaire LUISA-7 Date LUISA - 7 assessed: 02/25/23 Source: Developed by Drs. Scott Barnes, Jaren Barton and colleagues, with an educational travon from [employer]. Physical exam (Primary Care) Vital Signs: Last Vital Signs Pulse 73 09/01/23 08:25 BP 134/72 09/01/23 08:25 Pulse Ox 98 09/01/23 08:25 Oxygen Delivery Method Room Air 09/01/23 08:25 BMI result Body Mass Index 35.2 Tobacco/Smoking Status: Tobacco use Status Tobacco use date assessed 02/25/23 09/01/23 08:29 Patient Tobacco Use Status Never used Tobacco 09/01/23 08:29 e-Cigarette/Vaping Use Never Used 09/01/23 08:29 PHQ-9: PHQ-9 Score PHQ-9: Total score 0 09/01/23 08:29 Depression Screening Interpretation: Negative Thrive Assessment: Date of Thrive Assessment Date Thrive assessed 02/25/23 09/01/23 08:29 Const General: alert; No acute distress Eyes Conjunctivae: conjunctivae normal Resp Auscultation: clear to auscultation bilaterally Cardio Rate: regular rate Rhythm: regular rhythm GI Inspection: Yes normal to inspection Extrem General: Yes normal to inspection and No edema Assessment and Plan Assessment & Plan (1) Paroxysmal atrial fibrillation: Comment: Fourteen day event monitor August 2020 ablation, [place]ras February 2019 cardioversion August 2019 Nuclear scan myocardial normal my 56% September 2019March 2020 echo EF 65-70% ascending aorta 3.9 cm, March 2023 Code(s): I48.0 - Paroxysmal atrial fibrillation Plan: Continue with anticoagulation patient is being followed up by Cardiology (2) Hypothyroid: Code(s): E03.9 - Hypothyroidism, unspecified Qualifiers: Hypothyroidism type: acquired Qualified Code(s): E03.9 - Hypothyroidism, unspecified Plan: Continue with thyroid Medicaid (3) Hypertension: Code(s): I10 - Essential (primary) hypertension Qualifiers: Hypertension type: essential hypertension Qualified Code(s): I10 - Essential (primary) hypertension Plan: Continue with blood pressure medication. Decrease salt intake and exercise on carvedilol 25 mg twice a day chlorthalidone lisinopril 40 mg once a day (4) Impaired glucose tolerance: Code(s): R73.02 - Impaired glucose tolerance (oral) Plan: Decrease the amount of carbohydrate intake, pasta, bread, rice and potatoes are all sugar and that is aside from all the sweet stuff, remember that fruits are good but they are Sweet also. (5) Hypercholesterolemia: Code(s): E78.00 - Pure hypercholesterolemia, unspecified Plan: Avoid fried foods, chicken skin, eggs, butter margarine, pastries and meat. Be it pork or beef they have a lot of cholesterol LDL goal of less than 130 and tr iglyceride of less than 150 on atorvastatin 20 mg once a day (6) BPH (benign prostatic hyperplasia): Code(s): N40.0 - Benign prostatic hyperplasia without lower urinary tract symptoms Qualifiers: Lower urinary tract symptom presence: symptoms present Lower urinary tract symptom detail: urinary frequency Qualified Code(s): N40.1 - Benign prostatic hyperplasia with lower urinary tract symptoms; R35.0 - Frequency of micturition Plan: Stable on tadalafil (7) Chronic kidney disease (CKD) stage G1/A1, glomerular filtration rate (GFR) equal to or greater than 90 mL/min/1.73 square meter and albuminuria creatinine ratio less than 30 mg/g: Code(s): N18.1 - Chronic kidney disease, stage 1 Plan: Keep well hydrated avoid NSAIDs (8) Obesity (BMI 30-39.9): Code(s): E66.9 - Obesity, unspecified Plan: Diet and exercise (9) Obstructive sleep apnea: Comment: With CPAP Code(s): G47.33 - Obstructive sleep apnea (adult) (pediatric) Plan: Continue to use the CPAP more than 4 hours a night and benefits from this (10) Right shoulder pain: Code(s): M25.511 - Pain in right shoulder Plan: Patient has a planned surgery and had preop with Cardiology moderate risk. and surgery (11) Anxiety: Code(s): F41.9 - Anxiety disorder, unspecified Orders: Orders Complete Blood Count Auto Diff 6 Months N18.1 - Chronic kidney disease, stage 1 Comprehensive Met. Panel 6 Months N18.1 - Chronic kidney disease, stage 1 Ferritin 6 Months N18.1 - Chronic kidney disease, stage 1 Reticulocyte Count 6 Months N18.1 - Chronic kidney disease, stage 1 Vitamin B12 and Folate 6 Months N18.1 - Chronic kidney disease, stage 1 IRON PROFILE 6 Months N18.1 - Chronic kidney disease, stage 1 Medications: New alprazolam 1 mg PO DAILY PRN 12 tabs 0RF anxiety F41.9 - Anxiety disorder, unspecified Coding Level of Care Code Est Pt Level 4 (04543) Diagnoses Paroxysmal atrial fibrillation I48.0 Acquired hypothyroidism E03.9 Hypothyroidism type: acquired Essential hypertension I10 Hypertension type: essential hypertension Impaired glucose tolerance R73.02 Hypercholesterolemia E78.00 Benign prostatic hyperplasia with urinary frequency N40.1; R35.0 Lower urinary tract symptom presence: symptoms present Lower urinary tract symptom detail: urinary frequency Chronic kidney disease (CKD) stage G1/A1, glomerular filtration rate (GFR) equal to or greater than 90 mL/min/1.73 square meter and albuminuria creatinine ratio less than 30 mg/g N18.1 Obesity (BMI 30-39.9) E66.9 Obstructive sleep apnea G47.33 Right shoulder pain M25.511 Anxiety F41.9
[2023-09-01 08:25] VITALS: BP 134/72; PULSE 73; O2SAT 98; BMI 35.2
== END 2023-09-01 09:01 | disposition home or self-care (01) ==
PROVIDERS: Visit Provider Internal Medicine
DX: I12.9 Hypertensive chronic kidney disease with stage 1 through stage 4 chronic kidney disease, or unspecified chronic kidney disease (principal); N18.1 Chronic kidney disease, stage 1; I48.0 Paroxysmal atrial fibrillation; E03.9 Hypothyroidism, unspecified; R73.02 Impaired glucose tolerance (oral); E78.00 Pure hypercholesterolemia, unspecified; N40.1 Benign prostatic hyperplasia with lower urinary tract symptoms; R35.0 Frequency of micturition; E66.9 Obesity, unspecified; G47.33 Obstructive sleep apnea (adult) (pediatric); M25.511 Pain in right shoulder; F41.9 Anxiety disorder, unspecified
CPT/HCPCS: 99214

== ENCOUNTER 2024-02-24 06:42 | Outpatient (REF) | payer MEDICARE, OTHER, SELFPAY ==
[2024-02-24 06:53] LABS: MANUAL DIFF FLAG NO
[2024-02-24 08:05] LABS: Basophils Percent Auto 0.6 % (0-2); Eosinophils Absolute Auto 0.2 X10*3/uL (0.0-0.4); Eosinophils Percent Auto 2.5 % (0-4); Hematocrit 43.3 % (42.0-52.0); Hemoglobin 14.5 g/dl (14.0-18.0); Imm Gran Abs Auto 0.04 X10*3/uL (0.00-0.03); Imm Gran Pct Auto 0.6 % (0.0-0.4); Lymphocytes Absolute Auto 1.1 X10*3/uL (1.2-4.9); Lymphocytes Percent Auto 16.1 % (20-40); Mean Corpuscular HGB Conc 33.5 g/dl (31.0-36.0); Mean Corpuscular Hemoglobin 29.3 pg (27.0-33.0); Mean Corpuscular Volume 87.5 fL (80.0-98.0); Mean Platelet Volume 8.5 fL (9.4-12.4); Monocytes Absolute Auto 0.8 X10*3/uL (0.1-1.2); Monocytes Percent Auto 11.6 % (2-11); Neutrophils Absolute Auto 4.8 x10*3/uL (2.0-8.3); Neutrophils Percent Auto 68.6 % (45-73); Platelet Count 313 X10*3/uL (160-400); Red Blood Count 4.95 X10*6/uL (4.60-5.80); Red Cell Distribution Width 12.9 % (11.0-16.0); Retic HGB Equivalent 33.1 pg (30.0-35.0); Reticulocyte Percent 1.3 % (0.5-1.8); Reticulocytes Absolute 0.064 X10*6/uL (0.026-0.095); White Blood Count 7.1 X10*3/uL (4.8-10.8)
[2024-02-24 08:48] LABS: Alanine Aminotransferase 36 U/L (0-40); Albumin Level 4.5 g/dL (3.5-5.0); Alkaline Phosphatase 105 U/L (39-117); Anion Gap 15 (12-20); Aspartate Amino Transferase 24 U/L (5-37); Bilirubin Total 0.5 mg/dL (0.0-1.0); Blood Urea Nitrogen 18 mg/dL (9-16); Calcium 10.3 mg/dL (8.4-10.2); Carbon Dioxide 26 mmol/L (22-29); Chloride 102 mmol/L (96-108); Estimated Glomerular Filt Rate > 60; Glucose Random 97 mg/dL (60-115); Iron 79 mcg/dL (45-160); Percent Iron Saturation 26 % (15-50); Sodium 139 mmol/L (135-145); Total Iron Binding Capacity 307 mcg/dL (228-428); Total Protein 7.7 g/dL (6.5-8.0); Unsaturated Iron Binding 228 ug/dL
[2024-02-24 08:51] LABS: Ferritin 261 ng/mL (20-250)
[2024-02-24 09:02] LABS: Folate 3.6 ng/mL (> or = 4.0); Vitamin B12 393 pg/mL (200-900)
== END 2024-02-24 06:43 | disposition home or self-care (01) ==
LOC: HO.LAB 06:42
PROVIDERS: PCP Internal Medicine; Visit Provider Internal Medicine
DX: N18.1 Chronic kidney disease, stage 1 (principal)
CPT/HCPCS: 36415; 80053; 82607; 82728; 82746; 83540; 85025; 85045

== ENCOUNTER 2024-03-01 08:25 | Outpatient (AMB) | payer MEDICARE, OTHER, SELFPAY ==
[2024-03-01 08:34] VITALS: BP 140/82; PULSE 78; O2SAT 98; BMI 34.4
--- NOTE | 2024-03-01 08:34 | MHC.PC.OV ---
Vital Signs 03/01/24 08:34 Height 6 ft 2 in Weight 268 lb BMI 34.4 BP 140/82 H Blood Pressure Location Lt brachial Position Sitting Pulse 78 Pulse Source Pulse Oximeter Pulse Oximetry (%) 98 Oxygen Delivery Method Room Air Intake Visit Reasons: 6 Month F/U Allergies No Known Allergies Allergy (Verified 03/01/24 08:34) Tobacco use date assessed: 03/01/24 Fall risk assessment: No Falls in past year Last assessed Fall Risk: 03/01/24 Dental Screening Dental Screen Date: 03/01/24 Did you have a dental visit in the last 12 months?: Yes Did you have a dental problem in the last 6 months where you did not have access to dental care?: No Was dental information given to patient?: Patient has dentist HPI 6 Month F/U HPI Details 58 Year old obese male with atrial fibrillation hypothyroidism hypertension impaired glucose tolerance hypercholesterolemia BPH chronic kidney disease and obstructive sleep apnea last seen in August 2023. Colonoscopy done in August 2019 up-to-date. Review of the notes was seen by Neurology in November 2023 for follow-up on sleep apnea there is a question on the setting of the CPAP patient continues to use the CPAP 7-17 cm water and benefitting from nightly usage adjusted back the pressure to 7-13 PFSH Medical History (Updated 03/01/24 @ 08:43 by Ramon Baird MD) BPH (benign prostatic hyperplasia) Erectile dysfunction Obstructive sleep apnea Anxiety Aortic dilatation Obesity (BMI 30-39.9) Lumbar spondylosis Interstitial cystitis BPH (benign prostatic hyperplasia) Impaired glucose tolerance Hypercholesterolemia Hypertension Gout Hypothyroid Paroxysmal atrial fibrillation Surgical History (Updated 05/21/22 @ 08:50 by Ramon Baird MD) History of prostatectomy History of ankle surgery Family History (Updated 02/25/23 @ 08:22 by Noemi Clemons CMA) Father Stroke Mother Alzheimers disease Social History (Updated 05/25/23 @ 09:32 by Ramon Baird MD) Household Members: Spouse Housing: House Alcohol intake: current Alcohol intake frequency: holidays/special occasions only Patient Tobacco Use Status: Never used Tobacco e-Cigarette/Vaping Use: Never Used Second Hand Smoke Exposure: No service: No Current occupational status: employed Cognitive needs: No Hearing needs: No Vision needs: Yes Questionnaire PHQ-9 Over the last 2 weeks, how often have you been bothered by any of the following problems? 1. Little interest or pleasure in doing things: not at all 2. Feeling down, depressed, or hopeless: not at all 3. Trouble falling or staying asleep, or sleeping too much: not at all 4. Feeling tired or having little energy: not at all 5. Poor appetite or overeating: not at all 6. Feeling bad about yourself - or that you are a failure or have let yourself or your family down: not at all 7. Trouble concentrating on things, such as reading the newspaper or watching television: not at all 8. Moving or speaking so slowly that other people could have noticed. Or the opposite - being so fidgety or restless that you have been moving around a lot more than usual: not at all 9. Thoughts that you would be better off or of hurting yourself in some way: not at all Total score: 0 Depression Screening Interpretation: Negative Depression Screening Done: Yes Source: Developed by Drs. Scott Barnes, Cami Heart, Jaren Chandra and colleagues, with an educational travon from [email or web address]. Thrive Questionnaire Date Thrive assessed: 03/01/24 I am a: Patient What is your living situation today?: I have a steady place to live Within the past 12 months, did the food you bought not last and you didn't have the money to get more?: Never true Within the past 12 months, did you worry whether your food would run out before you got money to buy more?: Never true Do you have trouble paying for medicines?: No Do you have trouble getting transportation to medical appointments?: No Do you have trouble paying your heating and electricity bill?: No Do you have trouble taking care of your child, family member or friend?: No Do you have trouble with day-to-day activities such as bathing, preparing meals, shopping, managing finances, etc.?: No Are you currently unemployed and looking for a job?: No Are you interested in more education?: No Currently or been in a relationship where the following occur: no concerns reported THRIVE Score: 0 AUDIT C Alcohol Use Questionnaire (AUDIT-C) 1. How often do you have a drink containing alcohol?: 2-3 times a week 2. How many drinks containing alcohol do you have on a typical day when you are drinking?: 1 or 2 3. How often do you have six or more drinks on one occasion?: Never Total Score: 3 LUISA-7 AMB Questionnaire LUISA-7 Date LUISA - 7 assessed: 03/01/24 Feeling nervous, anxious, or on edge: 0 = Not at all Not being able to stop or control worryin = Not at all Worrying too much about different things: 0 = Not at all Trouble relaxin = Not at all Being so restless that it is hard to sit still: 0 = Not at all Becoming easily annoyed or irritable: 0 = Not at all Feeling afraid as if something awful might happen: 0 = Not at all Total LUISA-7 score (0-4 normal; 5-9 mild; 10-14 moderate; 15-21 severe): 0 Source: Developed by Drs. Scott Barnes, Cami Heart, Jaren Chandra and colleagues, with an educational travon from [email or web address]. Physical exam (Primary Care) Vital Signs: Last Vital Signs Pulse 78 03/01/24 08:34 BP 140/82 H 03/01/24 08:34 Pulse Ox 98 03/01/24 08:34 Oxygen Delivery Method Room Air 03/01/24 08:34 BMI result Body Mass Index 34.4 Tobacco/Smoking Status: Tobacco use Status Tobacco use date assessed 03/01/24 03/01/24 08:37 Patient Tobacco Use Status Never used Tobacco 03/01/24 08:37 e-Cigarette/Vaping Use Never Used 03/01/24 08:37 PHQ-9: PHQ-9 Score PHQ-9: Total score 0 03/01/24 08:37 Depression Screening Interpretation: Negative Thrive Assessment: Date of Thrive Assessment Date Thrive assessed 03/01/24 03/01/24 08:37 Currently or been in a relationship where the following occur: no concerns reported Const General: alert; No acute distress Eyes Conjunctivae: conjunctivae normal Resp Auscultation: clear to auscultation bilaterally Cardio Rate: regular rate Rhythm: regular rhythm GI Inspection: Yes normal to inspection Extrem General: Yes normal to inspection and No edema Assessment and Plan Assessment & Plan (1) Obstructive sleep apnea: Comment: With CPAP Code(s): G47.33 - Obstructive sleep apnea (adult) (pediatric) Plan: Patient follows up with Neurology and has adjusted the CPAP/auto PAP and continues to use more than 4 hours a night and benefits from this. (2) Obesity (BMI 30-39.9): Code(s): E66.9 - Obesity, unspecified Plan: Diet and exercise noted 6 lb weight loss. (3) Chronic kidney disease (CKD) stage G1/A1, glomerular filtration rate (GFR) equal to or greater than 90 mL/min/1.73 square meter and albuminuria creatinine ratio less than 30 mg/g: Code(s): N18.1 - Chronic kidney disease, stage 1 Plan: Stable keep well hydrated avoid NSAIDs (4) Impaired glucose tolerance: Code(s): R73.02 - Impaired glucose tolerance (oral) Plan: Decrease the amount of carbohydrate intake, pasta, bread, rice and potatoes are all sugar and that is aside from all the sweet stuff, remember that fruits are good but they are Sweet also. (5) Hypercholesterolemia: Code(s): E78.00 - Pure hypercholesterolemia, unspecified Plan: Avoid fried foods, chicken skin, eggs, butter margarine, pastries and meat. Be it pork or beef they have a lot of cholesterol LDL goal of less than 130 and triglyceride of less than 150. Presently on atorvastatin 20 mg once a day (6) Hypertension: Code(s): I10 - Essential (primary) hypertension Qualifiers: Hypertension type: essential hypertension Qualified Code(s): I10 - Essential (primary) hypertension Plan: Continue with blood pressure medication. Decrease salt intake and exercise patient takes carvedilol 25 mg twice a day chlorthalidone lisinopril 40 mg once a day. BP high here today and advised to monitor for now and call if getting consistently high SBP 140 or above (7) Hypothyroid: Code(s): E03.9 - Hypothyroidism, unspecified Qualifiers: Hypothyroidism type: acquired Qualified Code(s): E03.9 - Hypothyroidism, unspecified Plan: Continue with thyroid medication (8) Paroxysmal atrial fibrillation: Comment: Fourteen day event monitor August 2020 ablation, [place] February 2019 cardioversion August 2019 Nuclear scan myocardial normal my 56% September 2019, March 2020 echo EF 65-70% ascending aorta 3.9 cm, March 2023 Code(s): I48.0 - Paroxysmal atrial fibrillation Plan: Continue with anticoagulation with Eliquis and flecainide. Schedule to see Cardiology in May (9) Folic acid deficiency: Code(s): E53.8 - Deficiency of other specified B group vitamins Plan: Noted on blood work to have low folic acid prescription for folic acid sent. Orders: Orders Complete Blood Count Auto Diff 6 Months N18.1 - Chronic kidney disease, stage 1 Comprehensive Met. Panel 6 Months N18.1 - Chronic kidney disease, stage 1 Free T4 (Free Thyroxine) 6 Months N18.1 - Chronic kidney disease, stage 1 Thyroid Stimulating Hormone 6 Months N18.1 - Chronic kidney disease, stage 1 Vitamin B12 and Folate 6 Months N18.1 - Chronic kidney disease, stage 1 B Type Natriuretic Peptide 6 Months N18.1 - Chronic kidney disease, stage 1 Lipid Panel 6 Months E78.00 - Pure hypercholesterolemia, unspecified, N18.1 - Chronic kidney disease, stage 1 Prostate Specific Antigen Scr 6 Months N18.1 - Chronic kidney disease, stage 1 Coding Level of Care Code Est Pt Level 4 (05241) Diagnoses Obstructive sleep apnea G47.33 Obesity (BMI 30-39.9) E66.9 Chronic kidney disease (CKD) stage G1/A1, glomerular filtration rate (GFR) equal to or greater than 90 mL/min/1.73 square meter and albuminuria creatinine ratio less than 30 mg/g N18.1 Impaired glucose tolerance R73.02 Hypercholesterolemia E78.00 Essential hypertension I10 Hypertension type: essential hypertension Acquired hypothyroidism E03.9 Hypothyroidism type: acquired Paroxysmal atrial fibrillation I48.0 Folic acid deficiency E53.8
== END 2024-03-01 08:57 | disposition home or self-care (01) ==
PROVIDERS: PCP Internal Medicine; Visit Provider Internal Medicine
DX: I12.9 Hypertensive chronic kidney disease with stage 1 through stage 4 chronic kidney disease, or unspecified chronic kidney disease (principal); N18.1 Chronic kidney disease, stage 1; I48.0 Paroxysmal atrial fibrillation; G47.33 Obstructive sleep apnea (adult) (pediatric); E66.9 Obesity, unspecified; R73.02 Impaired glucose tolerance (oral); E78.00 Pure hypercholesterolemia, unspecified; E03.9 Hypothyroidism, unspecified; E53.8 Deficiency of other specified B group vitamins
CPT/HCPCS: 99214

== ENCOUNTER 2024-06-01 06:37 | Outpatient (REF) | payer MEDICARE, OTHER, SELFPAY ==
[2024-06-01 06:51] LABS: MANUAL DIFF FLAG NO
[2024-06-01 07:10] LABS: Basophils Absolute Auto 0.1 X10*3/uL (0.0-0.2); Basophils Percent Auto 0.6 % (0-2); Eosinophils Absolute Auto 0.2 X10*3/uL (0.0-0.4); Eosinophils Percent Auto 2.2 % (0-4); Hematocrit 41.6 % (42.0-52.0); Hemoglobin 14.3 g/dl (14.0-18.0); Imm Gran Abs Auto 0.12 X10*3/uL (0.00-0.03); Imm Gran Pct Auto 1.5 % (0.0-0.4); Lymphocytes Absolute Auto 1.4 X10*3/uL (1.2-4.9); Lymphocytes Percent Auto 17.5 % (20-40); Mean Corpuscular HGB Conc 34.4 g/dl (31.0-36.0); Mean Corpuscular Hemoglobin 29.7 pg (27.0-33.0); Mean Corpuscular Volume 86.3 fL (80.0-98.0); Mean Platelet Volume 8.2 fL (9.4-12.4); Monocytes Absolute Auto 0.9 X10*3/uL (0.1-1.2); Monocytes Percent Auto 10.9 % (2-11); Neutrophils Absolute Auto 5.5 x10*3/uL (2.0-8.3); Neutrophils Percent Auto 67.3 % (45-73); Platelet Count 287 X10*3/uL (160-400); Red Blood Count 4.82 X10*6/uL (4.60-5.80); Red Cell Distribution Width 12.8 % (11.0-16.0); White Blood Count 8.2 X10*3/uL (4.8-10.8)
[2024-06-01 07:30] LABS: B Type Natriuretic Peptide 12 pg/mL (<100)
[2024-06-01 07:46] LABS: Alanine Aminotransferase 46 U/L (0-40); Albumin Level 4.4 g/dL (3.5-5.0); Alkaline Phosphatase 115 U/L (39-117); Anion Gap 10 (12-20); Aspartate Amino Transferase 30 U/L (5-37); Bilirubin Total 0.4 mg/dL (0.0-1.0); Blood Urea Nitrogen 17 mg/dL (9-16); Calcium 10.1 mg/dL (8.4-10.2); Carbon Dioxide 31 mmol/L (22-29); Chloride 103 mmol/L (96-108); Cholesterol 166 mg/dL (<200); Estimated Glomerular Filt Rate > 60; Glucose Random 105 mg/dL (60-115); HDL Cholesterol 29 mg/dL (>40); LDL Cholesterol Calculated 100 mg/dL (<100); Potassium 4.3 mmol/L (3.3-5.1); Sodium 140 mmol/L (135-145); Total Protein 7.6 g/dL (6.5-8.0); Triglycerides 188 mg/dL (<150)
[2024-06-01 08:05] LABS: Free T4 (Free Thyroxine) 0.98 ng/dL (0.71-1.85); Thyroid Stimulating Hormone 1.96 uIU/mL (0.32-4.0)
[2024-06-01 08:17] LABS: Folate 12.4 ng/mL (> or = 4.0); Prostate Specific Antigen Scr 1.66 ng/mL (<0.05-4.0); Vitamin B12 509 pg/mL (200-900)
== END 2024-06-01 06:38 | disposition home or self-care (01) ==
LOC: HO.LAB 06:37
PROVIDERS: PCP Internal Medicine; Visit Provider Internal Medicine
DX: N18.1 Chronic kidney disease, stage 1 (principal); E78.00 Pure hypercholesterolemia, unspecified; Z12.5 Encounter for screening for malignant neoplasm of prostate
CPT/HCPCS: 36415; 80053; 80061; 82607; 82746; 83880; 84153; 84439; 84443; 85025

== ENCOUNTER 2024-06-07 13:12 | Outpatient (AMB) | payer MEDICARE, OTHER, SELFPAY ==
[2024-06-07 13:22] VITALS: BP 140/72; PULSE 76; O2SAT 97; BMI 33.8
--- NOTE | 2024-06-07 13:22 | MHC.PC.OV ---
Vital Signs 06/07/24 13:22 Height 6 ft 2 in Weight 263 lb BMI 33.8 BP 140/72 H Blood Pressure Location Lt brachial Position Sitting Pulse 76 Pulse Source Pulse Oximeter Pulse Oximetry (%) 97 Oxygen Delivery Method Room Air Intake Visit Reasons: PE Allergies No Known Allergies Allergy (Verified 06/07/24 13:22) Medication List - Last Reconciled 06/07/24 by Ramon Baird MD allopurinol 300 mg PO DAILY alprazolam 1 mg PO DAILY PRN amitriptyline 25 mg PO BEDTIME 90 days amoxicillin 2,000 mg orally 1 hour before the procedure.; apixaban (Eliquis) 5 mg PO BID atorvastatin 20 mg PO DAILY carvedilol 25 mg PO BID chlorthalidone 0.5 tablet daily; clindamycin phosphate 1% 1 appl topical DAILY flecainide 100 mg PO Q12H folic acid 1 mg PO DAILY levothyroxine 175 mcg PO DAILY lisinopril 40 mg PO DAILY tadalafil 20 mg PO DAILY PRN Tobacco use date assessed: 06/07/24 Fall risk assessment: No Falls in past year Last assessed Fall Risk: 06/07/24 Dental Screening Dental Screen Date: 06/07/24 Did you have a dental visit in the last 12 months?: Yes Did you have a dental problem in the last 6 months where you did not have access to dental care?: No Was dental information given to patient?: Patient has dentist HPI PE HPI Details 64-year-old obese male with obstructive sleep apnea chronic kidney disease impaired glucose tolerance hypertension hypercholesterolemia atrial fibrillation hypothyroidism last seen in February 2024. Patient is here for physical exam. Colonoscopy is up-to-date 08/2019 due for this year. [facility] Medical History (Updated 06/07/24 @ 13:35 by Ramon Baird MD) BPH (benign prostatic hyperplasia) Erectile dysfunction Obstructive sleep apnea Anxiety Aortic dilatation Obesity (BMI 30-39.9) Lumbar spondylosis Interstitial cystitis BPH (benign prostatic hyperplasia) Impaired glucose tolerance Hypercholesterolemia Hypertension Gout Hypothyroid Paroxysmal atrial fibrillation Surgical History (Updated 05/21/22 @ 08:50 by Ramon Baird MD) History of prostatectomy History of ankle surgery Family History (Updated 02/25/23 @ 08:22 by Noemi Clemons CMA) Father Stroke Mother Alzheimers disease Social History (Updated 06/07/24 @ 13:42 by Ramon Baird MD) Household Members: Spouse Housing: House Alcohol intake: current Alcohol intake frequency: holidays/special occasions only Comment: 2 drinks a month Patient Tobacco Use Status: Never used Tobacco Tobacco use type: Cigarette e-Cigarette/Vaping Use: Never Used Second Hand Smoke Exposure: No service: No Current occupational status: employed Cognitive needs: No Hearing needs: No Vision needs: Yes Questionnaire PHQ-9 Over the last 2 weeks, how often have you been bothered by any of the following problems? 1. Little interest or pleasure in doing things: not at all 2. Feeling down, depressed, or hopeless: not at all 3. Trouble falling or staying asleep, or sleeping too much: not at all 4. Feeling tired or having little energy: not at all 5. Poor appetite or overeating: not at all 6. Feeling bad about yourself - or that you are a failure or have let yourself or your family down: not at all 7. Trouble concentrating on things, such as reading the newspaper or watching television: not at all 8. Moving or speaking so slowly that other people could have noticed. Or the opposite - being so fidgety or restless that you have been moving around a lot more than usual: not at all 9. Thoughts that you would be better off or of hurting yourself in some way: not at all Total score: 0 Depression Screening Interpretation: Negative Depression Screening Done: Yes Source: Developed by Drs. Scott Barnes, Cami Heart, Jaren Chandra and colleagues, with an educational travon from [email or web address]. Thrive Questionnaire Date Thrive assessed: 03/01/24 AUDIT C Alcohol Use Questionnaire (AUDIT-C) 1. How often do you have a drink containing alcohol?: 2-3 times a week 2. How many drinks containing alcohol do you have on a typical day when you are drinking?: 1 or 2 3. How often do you have six or more drinks on one occasion?: Never Total Score: 3 LUISA-7 AMB Questionnaire LUISA-7 Date LUISA - 7 assessed: 06/07/24 Feeling nervous, anxious, or on edge: 0 = Not at all Not being able to stop or control worryin = Not at all Worrying too much about different things: 0 = Not at all Trouble relaxin = Not at all Being so restless that it is hard to sit still: 0 = Not at all Becoming easily annoyed or irritable: 0 = Not at all Feeling afraid as if something awful might happen: 0 = Not at all Total LUISA-7 score (0-4 normal; 5-9 mild; 10-14 moderate; 15-21 severe): 0 Source: Developed by Drs. Scott Barnes, Cami Heart, Jaren Chandra and colleagues, with an educational travon from [email or web address]. Review of Systems Const Denies poor appetite and Denies weakness Eyes Denies no additional complaints ENT Reports Normal hearing present, Denies dizziness, Denies nasal congestion, Denies tinnitus and Denies sore throat Card Denies chest pain, Denies syncope, Denies rapid heart rate and Denies dyspnea Resp Denies cough and Denies dyspnea GI Denies change in stool character, Reports constipation, Denies diarrhea, Denies nausea and Denies vomiting Denies dysuria and Denies urinary frequency Neuro Reports Normal hearing present, Denies confusion, Denies dizziness, Denies syncope and Denies weakness Psych Denies confusion Physical exam (Primary Care) Vital Signs: Last Vital Signs Pulse 76 06/07/24 13:22 BP 140/72 H 06/07/24 13:22 Pulse Ox 97 06/07/24 13:22 Oxygen Delivery Method Room Air 06/07/24 13:22 BMI result Body Mass Index 33.8 Tobacco/Smoking Status: Tobacco use Status Tobacco use date assessed 06/07/24 06/07/24 13:28 Patient Tobacco Use Status Never used Tobacco 06/07/24 13:28 Tobacco use type Cigarette 06/07/24 13:28 e-Cigarette/Vaping Use Never Used 06/07/24 13:28 PHQ-9: PHQ-9 Score PHQ-9: Total score 0 06/07/24 13:28 Depression Screening Interpretation: Negative Thrive Assessment: Date of Thrive Assessment Date Thrive assessed 03/01/24 06/07/24 13:28 Const General: No confusion Orientation/consciousness: No confusion HENMT Head: Yes normocephalic Ears: external ears normal and TM's normal bilaterally Face and sinus: Yes normal facial exam Mouth: moist mucous membranes Throat: Yes tonsils normal Eyes Conjunctivae: conjunctivae normal Pupils: Equal, round and reactive pupils present and Pupil accommodation reflex normal Direct Ophthalmoscopy: normal light reflex Neck Neck: No lymphadenopathy Thyroid: Thyroid normal Chest Chest palpation & inspection: normal inspection of the chest Resp Effort & Inspection: normal respiratory effort and no audible wheezes Auscultation: clear to auscultation bilaterally, no crackles, no wheezes and lung sounds not diminished Cardio Rate: regular rate Rhythm: regular rhythm Peripheral pulses: radial pulses present and dorsalis pedis present GI Palpation (GI): no masses Auscultation: normal bowel sounds and normoactive bowel sounds Rectal Exam - Male: Yes deferred Skin General skin exam: no rashes or lesions noted Rashes: no rashes Neuro General: No confusion Cranial nerves: Yes Equal, round and reactive pupils present and Yes Normal hearing present Cognition (Neuro): normal cognition Gait exam (Neuro): Normal gait present Motor exam (neuro): 5/5 motor strength present throughout Deep tendon reflexes (DTR's): Right brachioradialis reflex intensity grade: 2+, Left brachioradialis reflex intensity grade: 2+, Right patellar reflex intensity grade: 2+ and Left patellar reflex intensity grade: 2+ Extrem General: No edema Assessment and Plan Assessment & Plan (1) Annual physical exam: Code(s): Z00.00 - Encounter for general adult medical examination without abnormal findings Plan: Patient is advised to eat healthy, keep well hydrated, keep active and have adequate sleep. (2) Obstructive sleep apnea: Comment: With CPAP Code(s): G47.33 - Obstructive sleep apnea (adult) (pediatric) Plan: Continue to use the CPAP more than 4 hours a night and benefits from this (3) Paroxysmal atrial fibrillation: Comment: Fourteen day event monitor August 2020 ablation, [facility] February 2019 cardioversion August 2019 Nuclear scan myocardial normal my 56% September 2019March 2020 echo EF 65-70% ascending aorta 3.9 cm, March 2023 Code(s): I48.0 - Paroxysmal atrial fibrillation Plan: Continue with anticoagulation with Eliquis and flecainide (4) Hypothyroid: Code(s): E03.9 - Hypothyroidism, unspecified Qualifiers: Hypothyroidism type: acquired Qualified Code(s): E03.9 - Hypothyroidism, unspecified Plan: Continue with thyroid medication (5) Hypertension: Code(s): I10 - Essential (primary) hypertension Qualifiers: Hypertension type: essential hypertension Qualified Code(s): I10 - Essential (primary) hypertension Plan: Continue with blood pressure medication. Decrease salt intake and exercise continue with carvedilol 25 mg twice a day chlorthalidone lisinopril 40 mg once day discussed concerns about elevated blood pressure still will add amlodipine 2.5 mg once a day (6) Hypercholesterolemia: Code(s): E78.00 - Pure hypercholesterolemia, unspecified Plan: Avoid fried foods, chicken skin, eggs, butter margarine, pastries and meat. Be it pork or beef they have a lot of cholesterol LDL goal of less than 100 and triglyceride of less than 150 on atorvastatin 20 mg once a day (7) Impaired glucose tolerance: Code(s): R73.02 - Impaired glucose tolerance (oral) Plan: Decrease the amount of carbohydrate intake, pasta, bread, rice and potatoes are all sugar and that is aside from all the sweet stuff, remember that fruits are good but they are Sweet also. (8) BPH (benign prostatic hyperplasia): Code(s): N40.0 - Benign prostatic hyperplasia without lower urinary tract symptoms Qualifiers: Lower urinary tract symptom presence: symptoms present Lower urinary tract symptom detail: urinary frequency Qualified Code(s): N40.1 - Benign prostatic hyperplasia with lower urinary tract symptoms; R35.0 - Frequency of micturition Plan: Stable (9) Chronic kidney disease (CKD) stage G1/A1, glomerular filtration rate (GFR) equal to or greater than 90 mL/min/1.73 square meter and albuminuria creatinine ratio less than 30 mg/g: Code(s): N18.1 - Chronic kidney disease, stage 1 Plan: Keep well hydrated avoid NSAIDs (10) Obesity (BMI 30-39.9): Code(s): E66.9 - Obesity, unspecified Plan: Diet and exercise (11) Tubular adenoma of colon: Comment: Two thousand nineteen Code(s): D12.6 - Benign neoplasm of colon, unspecified Plan: Patient is reminded about colonoscopy (12) Folic acid deficiency: Code(s): E53.8 - Deficiency of other specified B group vitamins Plan: Refill done Orders: Orders Hemoglobin A1c Today R79.89 - Other specified abnormal findings of blood chemistry Referrals Gastroenterology Referral D12.6 - Benign neoplasm of colon, unspecified Medications: New amlodipine 2.5 mg PO DAILY 90 tabs 1RF I10 - Essential (primary) hypertension Refilled folic acid 1 mg PO DAILY 90 tabs 1RF E53.8 - Deficiency of other specified B group vitamins Coding Level of Care Code Est Pt Prev Care >65y(05378) Diagnoses Annual physical exam Z00.00 Obstructive sleep apnea G47.33 Paroxysmal atrial fibrillation I48.0 Acquired hypothyroidism E03.9 Hypothyroidism type: acquired Essential hypertension I10 Hypertension type: essential hypertension Hypercholesterolemia E78.00 Impaired glucose tolerance R73.02 Benign prostatic hyperplasia with urinary frequency N40.1; R35.0 Lower urinary tract symptom presence: symptoms present Lower urinary tract symptom detail: urinary frequency Chronic kidney disease (CKD) stage G1/A1, glomerular filtration rate (GFR) equal to or greater than 90 mL/min/1.73 square meter and albuminuria creatinine ratio less than 30 mg/g N18.1 Obesity (BMI 30-39.9) E66.9 Tubular adenoma of colon D12.6 Folic acid deficiency E53.8
== END 2024-06-07 14:05 | disposition home or self-care (01) ==
PROVIDERS: PCP Internal Medicine; Visit Provider Internal Medicine
DX: Z00.00 Encounter for general adult medical examination without abnormal findings (principal); I12.9 Hypertensive chronic kidney disease with stage 1 through stage 4 chronic kidney disease, or unspecified chronic kidney disease; N18.1 Chronic kidney disease, stage 1; I48.0 Paroxysmal atrial fibrillation; G47.33 Obstructive sleep apnea (adult) (pediatric); E03.9 Hypothyroidism, unspecified; E78.00 Pure hypercholesterolemia, unspecified; R73.02 Impaired glucose tolerance (oral); N40.1 Benign prostatic hyperplasia with lower urinary tract symptoms; R35.0 Frequency of micturition; E66.9 Obesity, unspecified; D12.6 Benign neoplasm of colon, unspecified; E53.8 Deficiency of other specified B group vitamins
CPT/HCPCS: 99397

== ENCOUNTER 2024-06-14 08:45 | Outpatient (REF) | payer MEDICARE, OTHER, SELFPAY ==
--- NOTE | ~2024-06-14 | US_ITS ---
EXAMINATION: US ABDOMEN COMPLETE CLINICAL INFORMATION: Other specified abnormal findings of blood chemistry. COMPARISON: CT abdomen and pelvis 11/14/2019. TECHNIQUE: Real-time imaging of the abdominal viscera. FINDINGS: PANCREAS: Normal. ABDOMINAL AORTA: The proximal, mid, and distal segments are normal in caliber. INFERIOR VENA CAVA: Visualized portions are normal. LIVER: The liver is normal in size. The liver contour is normal. Parenchymal echogenicity is normal. There are small cysts in the right and left lobe. No imaging follow-up is recommended. There is no intrahepatic biliary duct dilatation seen. GALLBLADDER: Small gallstone is seen. No evidence of acute cholecystitis. The gallbladder does not appear distended. COMMON BILE DUCT: Normal in caliber measuring 0.20 cm in diameter. RIGHT KIDNEY: 1.7 cm simple cyst in the lower pole. No imaging follow-up is recommended. No hydronephrosis or renal calculi. The kidney measures 13.0 cm in maximum dimension. LEFT KIDNEY: Septated cyst in the upper pole measuring 2.2 cm. Additional simple cyst in the upper pole measures 3.5 cm and lower pole measure 0.5 cm. No imaging follow-up is recommended. No hydronephrosis or renal calculi. The kidney measures 13.1 cm in maximum dimension. SPLEEN: Normal. The spleen measures 12.1 cm in maximum dimension. FREE FLUID: None. US/US abdomen complete IMPRESSION: Cholelithiasis without evidence of acute cholecystitis. Electronically signed by: Reilly Torres MD 06/28/2024 02:15 PM EDT
== END 2024-06-14 08:46 | disposition home or self-care (01) ==
LOC: HO.US 08:45
PROVIDERS: PCP Internal Medicine; Visit Provider Internal Medicine
DX: R79.89 Other specified abnormal findings of blood chemistry (principal)
CPT/HCPCS: 76700

== ENCOUNTER 2024-08-31 08:47 | Outpatient (AMB) | payer MEDICARE, OTHER, SELFPAY ==
[2024-08-31 09:17] VITALS: BP 142/70; PULSE 68; O2SAT 98; BMI 34.5
--- NOTE | 2024-08-31 09:17 | MHC.PC.OV ---
Vital Signs 08/31/24 09:17 Height 6 ft 2 in Weight 269 lb BMI 34.5 BP 142/70 H Blood Pressure Location Lt brachial Position Sitting Pulse 68 Pulse Source Pulse Oximeter Pulse Oximetry (%) 98 Oxygen Delivery Method Room Air Intake Visit Reasons: 6M Follow Up Allergies No Known Allergies Allergy (Verified 08/31/24 09:22) Medication List - Last Reconciled 08/31/24 by Dawna Mora PA-C allopurinol 300 mg PO DAILY alprazolam 1 mg PO DAILY PRN amitriptyline 25 mg PO BEDTIME 90 days amoxicillin 2,000 mg orally 1 hour before the procedure.; apixaban (Eliquis) 5 mg PO BID atorvastatin 20 mg PO DAILY carvedilol 25 mg PO BID chlorthalidone 0.5 tablet daily; clindamycin phosphate 1% 1 appl topical DAILY flecainide 100 mg PO Q12H folic acid 1 mg PO DAILY levothyroxine 175 mcg PO DAILY lisinopril 40 mg PO DAILY tadalafil 20 mg PO DAILY PRN Tobacco use date assessed: 06/07/24 Fall risk assessment: No Falls in past year Last assessed Fall Risk: 08/31/24 Dental Screening Dental Screen Date: 06/07/24 HPI 6M Follow Up HPI Details 64-year-old obese male with obstructive sleep apnea chronic kidney disease impaired glucose tolerance hypertension hypercholesterolemia atrial fibrillation hypothyroidism last seen in May [address] Baird coming in for follow up.? In review of the notes, patient was seen by [facility] 07/10/2024 ordered for stress echo for routine atrial fibrillation is continued on current blood pressure medication. Patient had stress echo performed on Wednesday at [facility] and has not have the results back yet. Blood pressures at home have been variable over the last few weeks due to COVID infection but since viral illness has cleared blood pressures have returned to normal. Overall he is feeling generally. [facility] Medical History (Updated 06/28/24 @ 14:40 by Ramon Baird MD) BPH (benign prostatic hyperplasia) Erectile dysfunction Obstructive sleep apnea Anxiety Aortic dilatation Obesity (BMI 30-39.9) Lumbar spondylosis Interstitial cystitis BPH (benign prostatic hyperplasia) Impaired glucose tolerance Hypercholesterolemia Hypertension Gout Hypothyroid Paroxysmal atrial fibrillation Surgical History (Updated 05/21/22 @ 08:50 by Ramon Baird MD) History of prostatectomy History of ankle surgery Family History (Updated 02/25/23 @ 08:22 by Noemi Clemons CMA) Father Stroke Mother Alzheimers disease Social History (Updated 06/07/24 @ 13:42 by Ramon Baird MD) Household Members: Spouse Housing: House Alcohol intake: current Alcohol intake frequency: holidays/special occasions only Comment: 2 drinks a month Patient Tobacco Use Status: Never used Tobacco Tobacco use type: Cigarette e-Cigarette/Vaping Use: Never Used Second Hand Smoke Exposure: No service: No Current occupational status: employed Cognitive needs: No Hearing needs: No Vision needs: Yes Questionnaire Thrive Questionnaire Date Thrive assessed: 03/01/24 AUDIT C Alcohol Use Questionnaire (AUDIT-C) 1. How often do you have a drink containing alcohol?: 2-3 times a week 2. How many drinks containing alcohol do you have on a typical day when you are drinking?: 1 or 2 3. How often do you have six or more drinks on one occasion?: Never Total Score: 3 LUISA-7 AMB Questionnaire LUISA-7 Date LUISA - 7 assessed: 06/07/24 Source: Developed by Drs. Scott Barnes, Cami Heart, Jaren Chandra and colleagues, with an educational travon from [employer]. Review of Systems Const Denies body aches, Denies chills and Denies fever(s) Eyes Denies blind spots, Denies blurry vision and Denies change in vision ENT Reports no additional complaints Card Denies chest pain, Denies leg edema, Denies lightheadedness, Denies dyspnea and Denies dyspnea on exertion Resp Denies dyspnea and Denies dyspnea on exertion GI Denies abdominal pain, Denies nausea and Denies vomiting Reports no additional complaints Musc Reports no additional complaints Skin/Breast Reports system reviewed and no additional complaints, except as documented Physical exam (Primary Care) Vital Signs: Last Vital Signs Pulse 68 08/31/24 09:17 BP 142/70 H 08/31/24 09:17 Pulse Ox 98 08/31/24 09:17 Oxygen Delivery Method Room Air 08/31/24 09:17 BMI result Body Mass Index 34.5 Tobacco/Smoking Status: Tobacco use Status Tobacco use date assessed 06/07/24 08/31/24 09:21 Patient Tobacco Use Status Never used Tobacco 08/31/24 09:21 Tobacco use type Cigarette 08/31/24 09:21 e-Cigarette/Vaping Use Never Used 08/31/24 09:21 Thrive Assessment: Date of Thrive Assessment Date Thrive assessed 03/01/24 08/31/24 09:21 Const General: cooperative, healthy appearing, comfortable and no acute distress Orientation/consciousness: patient oriented x3 HENME Head: Yes normocephalic Ears: hearing grossly normal bilaterally General nose exam: Normal external nose present Eyes General: appearance normal, both eyes and all related structures Conjunctivae: conjunctivae normal Neck Neck: Yes full ROM and Yes no lymphadenopathy Resp Effort & Inspection: normal respiratory effort Auscultation: clear to auscultation bilaterally, no crackles, no rales, no rhonchi and no wheezes Cardio Rate: regular rate Rhythm: regular rhythm Skin General skin exam: no rashes or lesions noted Neuro General: patient oriented x3 Gait exam (Neuro): Normal gait present Extrem General: Yes normal to inspection, Yes full ROM and No edema Psych Affect: normal affect Attitude: cooperative Insight: Good insight present (Psych) Judgement: Good judgement present (Psych) Office Procedures Flu Questionnaire Does the patient have a severe egg allergy?: No Does the patient have severe life threatening allergies?: No Does the patient have a fever or illness today?: No Has the patient ever had Guillain-Timberlake Syndrome?: No Has the patient ever had any past reaction to a flu shot?: No Immunizations Fluarix Triv [id number] (PF) 45 mcg (15 mcg x 3)/0.5 mL IM syringe Performing Provider: Dawna Mora PA-C Performing Location: [facility] [place] [facility] Administered by: DOMINGO Velázquez on 08/31/24 09:50 Dose Route Admin Location Dispensed Lot Number Expiration Date NDC Flatbed Stitcher 0.5 mL IM Left Deltoid 0.5 mL [id number] 04/16/25 [id number] [employer] VIS Given Date VIS Provided VIS Publication Date 08/31/24 Single Vaccine 21 Eligibility Eligibility Date Funding Source Not C Eligible 08/31/24 Private Coding Level of Care Code Est Pt Level 3 (82500) Diagnoses Obstructive sleep apnea G47.33 Obesity (BMI 30-39.9) E66.9 Impaired glucose tolerance R73.02 Hypercholesterolemia E78.00 Essential hypertension I10 Hypertension type: essential hypertension Paroxysmal atrial fibrillation I48.0 Assessment & Plan Assessment & Plan (1) Obstructive sleep apnea: Comment: With CPAP Code(s): G47.33 - Obstructive sleep apnea (adult) (pediatric) Category: Medical Plan: Uses CPAP faithfully at least 4 hours a night and benefits from this therapy. (2) Obesity (BMI 30-39.9): Code(s): E66.9 - Obesity, unspecified Category: Medical Plan: Healthy diet and regular exercise is encouraged. (3) Impaired glucose tolerance: Code(s): R73.02 - Impaired glucose tolerance (oral) Category: Medical Plan: Decrease the amount of carbohydrates such as pasta, bread, rice, and potatoes and limit the amount of sweets. Although fruits are generally healthy they should be eaten in moderation as they are still high in sugar. (4) Hypercholesterolemia: Code(s): E78.00 - Pure hypercholesterolemia, unspecified Category: Medical Plan: Avoid foods that are high in cholesterol such as red meat, fried foods, eggs and baked goods. Triglyceride goal of less than 150 and LDL goal of less than 100. Continue on atorvastatin 20 (5) Hypertension: Code(s): I10 - Essential (primary) hypertension Category: Medical Qualifiers: Hypertension type: essential hypertension Qualified Code(s): I10 - Essential (primary) hypertension Plan: Continue on current blood pressure medication. Avoid salt intake and encourage healthy diet and regular exercise. Blood pressure elevated in the office but states blood pressures at home have been normal. Continue to monitor and will follow up in 6 weeks. Human Resources Communications Manager has been managing blood pressures at this time. If values at home are persistently over 140/90 to reach out to our office. (6) Paroxysmal atrial fibrillation: Comment: Fourteen day event monitor August 2020 ablation, [facility]ras February 2019 cardioversion August 2019 Nuclear scan myocardial normal my 56% September 2019March 2020 echo EF 65-70% ascending aorta 3.9 cm, March 2023 Code(s): I48.0 - Paroxysmal atrial fibrillation Category: Medical Plan: Continue to follow with cardiology. Last seen June 2024 stable on medication and awaiting results from stress ECHO. Plan This note was constructed using voice recognition software. While every effort has been made to ensure accuracy and punch press operator helper, still areas may have been included sometimes these areas may affect the content or meeting of the given symptoms. Total time spent caring for the patient today was 20 minutes. This includes time spent before the visit reviewing the chart, time spent during the visit, and time spent after the visit and documentation. Orders: Orders Influenza [id number] Immunization 08/31/24 Z23 - Encounter for immunization Medications: Changed From carvedilol must administer with a meal/food 25 mg PO BID I10 - Essential (primary) hypertension, I48.0 - Paroxysmal atrial fibrillation To carvedilol must administer with a meal/food 37.5 mg PO BID I10 - Essential (primary) hypertension, I48.0 - Paroxysmal atrial fibrillation
== END 2024-08-31 09:50 | disposition home or self-care (01) ==
PROVIDERS: PCP Internal Medicine
DX: I48.0 Paroxysmal atrial fibrillation (principal); G47.33 Obstructive sleep apnea (adult) (pediatric); E66.9 Obesity, unspecified; Z68.34 Body mass index [BMI] 34.0-34.9, adult; R73.02 Impaired glucose tolerance (oral); E78.00 Pure hypercholesterolemia, unspecified; I10 Essential (primary) hypertension

== ENCOUNTER → 2024-08-31 08:47 | Outpatient (BNVA) | payer MEDICARE, OTHER, SELFPAY | PROVIDERS: PCP Internal Medicine | DX: Z23 Encounter for immunization (principal); G47.33 Obstructive sleep apnea (adult) (pediatric); E66.9 Obesity, unspecified; R73.02 Impaired glucose tolerance (oral); E78.00 Pure hypercholesterolemia, unspecified; I10 Essential (primary) hypertension; I48.0 Paroxysmal atrial fibrillation | CPT/HCPCS: 90471; 90656; 99212 ==

== ENCOUNTER 2024-10-13 08:46 | Day surgery (SDC) | payer MEDICARE, OTHER, SELFPAY ==
[2024-10-10 11:52] VITALS: BMI 34.5
[2024-10-10 12:17] VITALS: BMI 34.5
--- NOTE | 2024-10-12 09:30 | P.CONAN_ITS ---
Documented by User: Shira See NP 10/12/24 09:36 HPI - Anesthesia Eval Consult details Narrative: 64yo M for Colonoscopy Eliquis for afib PMFSH Active Problems Active Problems: All Active Problems Tubular adenoma of colon (Acute) LFT elevation (Acute) Folic acid deficiency (Acute) Right shoulder pain (Acute) COVID-19 virus infection (Acute) Bicipital tendinitis of right shoulder (Acute) Right ankle pain (Acute) History of arthroplasty of left knee (Acute) Annual physical exam (Acute) Gout (Acute) Hypercalcemia (Acute) Myalgia (Acute) Cholelithiasis (Acute) Anemia (Acute) Leg weakness, bilateral (Acute) Chronic kidney disease (CKD) stage G1/A1, glomerular filtration rate (GFR) equal to or greater than 90 mL/min/1.73 square meter and albuminuria creatinine ratio less than 30 mg/g (Acute) Erectile dysfunction (Acute) Obstructive sleep apnea (Acute) Anxiety (Acute) Obesity (BMI 30-39.9) (Acute) BPH (benign prostatic hyperplasia) (Acute) Impaired glucose tolerance (Acute) Hypercholesterolemia (Acute) Hypertension (Acute) Hypothyroid (Acute) Paroxysmal atrial fibrillation (Acute) Past Medical History Medical History CKD (chronic kidney disease) History of cardioversion BPH (benign prostatic hyperplasia) Erectile dysfunction Obstructive sleep apnea Anxiety Aortic dilatation Obesity (BMI 30-39.9) Lumbar spondylosis Interstitial cystitis BPH (benign prostatic hyperplasia) Impaired glucose tolerance Hypercholesterolemia Hypertension Gout Hypothyroid Paroxysmal atrial fibrillation Family History Family History Father Stroke Mother Alzheimers disease Surgical History Surgical History Hx of colonoscopy (2019) Hx of shoulder surgery Hx of total knee replacement History of prostatectomy History of ankle surgery Social History Social History Household Members: Spouse Housing: House Are you a primary assurance services manager health care to a significant other at home: No Do you presently have visiting nurse or other home services: No Alcohol intake: current Alcohol intake frequency: holidays/special occasions only Comment: 2 drinks a month Patient Tobacco Use Status: Never used Tobacco Tobacco use type: Cigarette e-Cigarette/Vaping Use: Never Used Second Hand Smoke Exposure: No Use of substances other than those prescribed or required for medical reasons: No Are you DNR?: No Advance Directives: No (will bring dos) Advance Directives Information Provided: Yes Advance Directives on File: No Recently lost weight without trying: No Poor oral hygiene: No service: No Current occupational status: employed Cognitive needs: No Hearing needs: No Vision needs: Yes Meds Allergies Allergy/AdvReac Type Severity Reaction Status Date / Time No Known Allergies Allergy Verified 08/31/24 09:22 Home Medications ?Medication ?Instructions ?Recorded ?Confirmed ?Last Taken ?Type apixaban 5 mg tablet (Eliquis) 5 mg PO BID 09/23/20 10/10/24 10/10/24 History chlorthalidone 25 mg tablet See Rx Instructions .Route DAILY 09/23/20 10/10/24 10/10/24 History flecainide 100 mg tablet 100 mg PO Q12H 09/23/20 10/10/24 10/12/24 History allopurinol 300 mg tablet 300 mg PO DAILY 02/25/23 10/10/24 10/12/24 History carvedilol 25 mg tablet 37.5 mg PO BID 08/31/24 10/10/24 10/13/24 History Exam Height,Weight and Vital Signs: Height 6 ft 2 in Weight 122.016 kg Pertinent Lab Results Pertinent Lab Results: Laboratory Tests 06/01/24 06:50 WBC 8.2 Hgb 14.3 Hct 41.6 L Plt Count 287 Sodium 140 Potassium 4.3 Chloride 103 Carbon Dioxide 31 H BUN 17 H Creatinine 1.14 Narrative Narrative: Stress ECHO 08/2024 OK Assessment and Plan Assessment Anesthesia Assessment: Chart Reviewed Documented by User: Citlaly Patel MD 10/13/24 09:31 HPI - Anesthesia Eval Consult details Narrative: 64yo M for Colonoscopy Eliquis for afib. Last dose of eliquis 10/10/24 PMFSH Active Problems Active Problems: All Active Problems Tubular adenoma of colon (Acute) LFT elevation (Acute) Folic acid deficiency (Acute) Right shoulder pain (Acute) COVID-19 virus infection (Acute)- July 2024 Bicipital tendinitis of right shoulder (Acute) Right ankle pain (Acute) History of arthroplasty of left knee (Acute) Annual physical exam (Acute) Gout (Acute) Hypercalcemia (Acute) Myalgia (Acute) Cholelithiasis (Acute) Anemia (Acute) Chronic kidney disease (CKD) stage G1/A1, glomerular filtration rate (GFR) equal to or greater than 90 mL/min/1.73 square meter and albuminuria creatinine ratio less than 30 mg/g (Acute) Erectile dysfunction (Acute) Obstructive sleep apnea (Acute). Uses CPAP machine Anxiety (Acute) Obesity (BMI 30-39.9) (Acute) BPH (benign prostatic hyperplasia) (Acute) Impaired glucose tolerance (Acute) Hypercholesterolemia (Acute) Hypertension (Acute) Hypothyroid (Acute) Paroxysmal atrial fibrillation (Acute). Sinus rhythm today 10/13/24 Past Medical History Medical History CKD (chronic kidney disease) History of cardioversion BPH (benign prostatic hyperplasia) Erectile dysfunction Obstructive sleep apnea Anxiety Aortic dilatation Obesity (BMI 30-39.9) Lumbar spondylosis Interstitial cystitis BPH (benign prostatic hyperplasia) Impaired glucose tolerance Hypercholesterolemia Hypertension Gout Hypothyroid Paroxysmal atrial fibrillation Family History Family History Father Stroke Mother Alzheimers disease Family history of problems with anesthesia: No Surgical History Surgical History Hx of colonoscopy (2019) Hx of shoulder surgery Hx of total knee replacement History of prostatectomy History of ankle surgery History of Problems with Anesthesia: No Social History Social History Household Members: Spouse Housing: House Are you a primary assurance services manager health care to a significant other at home: No Do you presently have visiting nurse or other home services: No Alcohol intake: current Alcohol intake frequency: holidays/special occasions only Comment: 2 drinks a month Patient Tobacco Use Status: Never used Tobacco Tobacco use type: Cigarette e-Cigarette/Vaping Use: Never Used Second Hand Smoke Exposure: No Use of substances other than those prescribed or required for medical reasons: No Are you DNR?: No Advance Directives: No (will bring dos) Advance Directives Information Provided: Yes Advance Directives on File: No Recently lost weight without trying: No Poor oral hygiene: No service: No Current occupational status: employed Cognitive needs: No Hearing needs: No Vision needs: Yes Meds Allergies Allergy/AdvReac Type Severity Reaction Status Date / Time No Known Allergies Allergy Verified 08/31/24 09:22 Home Medications ?Medication ?Instructions ?Recorded ?Confirmed ?Last Taken ?Type apixaban 5 mg tablet (Eliquis) 5 mg PO BID 09/23/20 10/10/24 10/10/24 History chlorthalidone 25 mg tablet See Rx Instructions .Route DAILY 09/23/20 10/10/24 10/10/24 History flecainide 100 mg tablet 100 mg PO Q12H 09/23/20 10/10/24 10/12/24 History allopurinol 300 mg tablet 300 mg PO DAILY 02/25/23 10/10/24 10/12/24 History carvedilol 25 mg tablet 37.5 mg PO BID 08/31/24 10/10/24 10/13/24 History Exam Height,Weight and Vital Signs: Height 6 ft 2 in Weight 122.016 kg Vital Signs Temp Pulse Resp BP Pulse Ox O2 Del Method 10/13/24 08:50 97 F 68 20 184/92 H 98 Room Air Pertinent Lab Results Pertinent Lab Results: Laboratory Tests 06/01/24 06:50 WBC 8.2 Hgb 14.3 Hct 41.6 L Plt Count 287 Sodium 140 Potassium 4.3 Chloride 103 Carbon Dioxide 31 H BUN 17 H Creatinine 1.14 Airway Mallampati Class: III TM Dist: >3cm Neck ROM: Full Loose/Missing/Broken Teeth: No (Denies broken, loose, missing teeth ) Heart: RRR Lungs: CTAB Assessment and Plan Assessment Anesthesia Assessment: Anesthesia Plan Discussed and Chart Reviewed Final Anesthetic Review Family History of Problems with Anesthesia: No History of Problems with Anesthesia: No NPO: Yes ASA Class: III Final Preanesthetic Review: No Changes in Pt Med Stat, Meds/Allgs Chart Reviewed, Consent Obtained/Reviewed and Anes Risks/Benef Reviewed Patient Risk: Intermediate Procedure Risk: Low Assessment/Block/Sedation in SS: Assess/Block/Sedation-SS Anesthetic Plan Anesthetic Plan: TIVA Disposition: Standard PACU
[2024-10-13 08:50] VITALS: BP 184/92; PULSE 68; RESP 20; TEMP 36.1; O2SAT 98
[2024-10-13] MEDS: Lactated Ringers 1,000 ML 100 ML IVCONT (09:12)
--- NOTE | 2024-10-13 09:35 | MHC.SHP ---
Pre-Procedural Eval Section A - 24 Hr Update-Section A only Date of Service: 10/13/24 The patient is an INPATIENT: No Changes since office visit: No Cold of Flu in the past 2 weeks, No New Medical Problems, No Changes in Medication and No Patient answered all questions The patient has been examined within 24 hours of the surgical procedure. The History & Physical has been completed within 30 days and I have reviewed it.: Yes Section B - Complete if H&P > 30 days Chief Complaint: Encounter for screening for malignant neoplasm of Allergies: Allergies Allergy/AdvReac Type Severity Reaction Status Date / Time No Known Allergies Allergy Verified 08/31/24 09:22 Plan I have reviewed the history and physical and performed a pertinent physical examination on my patient. No changes have occurred unless specified. Time Spent With Patient Time: Total time managing care of this patient today ____ minutes.
[2024-10-13 10:11] VITALS: BP 117/68; PULSE 70; RESP 16; TEMP 36.6; O2SAT 96
[2024-10-13 10:26] VITALS: BP 143/90; PULSE 69; RESP 16; TEMP 36.6; O2SAT 96
--- NOTE | 2024-10-13 10:42 | OP_ITS ---
DATE OF SERVICE: 10/13/2024 SURGEON: Fortino Pagan MD INDICATIONS: Colon cancer screening and prior history of adenomatous colon polyps. PREOPERATIVE DIAGNOSIS: POSTOPERATIVE DIAGNOSIS: PROCEDURE PERFORMED: Colonoscopy to the cecum. ESTIMATED BLOOD LOSS: COMPLICATIONS: ANESTHESIA: Monitored anesthesia care. ASSISTANTS: SPECIMENS: DESCRIPTION OF PROCEDURE: A history and physical was performed. The risks and benefits of the procedure were explained to the patient and informed consent was obtained. The patient was placed in the left lateral decubitus position. A digital rectal exam was performed and was found to be normal. The Olympus pediatric video colonoscope was introduced into the rectum and advanced to the cecum. The cecum was identified by transillumination, palpation, and identification of ileocecal valve. Examination was performed and the scope was removed. He tolerated the procedure well and was returned to recovery area in stable condition. FINDINGS: The terminal ileum was not examined. The visualized colonic mucosa was normal. The quality of the prep was good. No polyps were identified. There was moderate sigmoid diverticulosis without any evidence of diverticulitis. Retroflexed examination showed some small internal hemorrhoids. IMPRESSION: Normal colonoscopy. RECOMMENDATIONS: 1. Follow up as needed. 2. Repeat colonoscopy is recommended in 10 years for average-risk individuals. MD PRASHANT Blanca/LIA / [id number]
== END 2024-10-13 10:51 | disposition home or self-care (01) ==
PROVIDERS: PCP Internal Medicine; Visit Provider Internal Medicine Gastroenterology
PROC: 0DJD8ZZ Inspection of Lower Intestinal Tract, Via Natural or Artificial Opening Endoscopic (ICD-10-PCS; CPT 45378; principal; 2024-10-13 09:50)
DX: Z12.11 Encounter for screening for malignant neoplasm of colon (principal); K57.30 Diverticulosis of large intestine without perforation or abscess without bleeding; K64.8 Other hemorrhoids; Z86.0101 Personal history of adenomatous and serrated colon polyps; I10 Essential (primary) hypertension; E78.00 Pure hypercholesterolemia, unspecified; I48.0 Paroxysmal atrial fibrillation; G47.33 Obstructive sleep apnea (adult) (pediatric); Z99.89 Dependence on other enabling machines and devices
CPT/HCPCS: G0105; J2003; J2704

== ENCOUNTER 2025-02-23 06:49 | Outpatient (REF) | payer MEDICARE, OTHER, SELFPAY ==
[2025-02-23 07:46] LABS: Estimated Average Glucose 114 mg/dL; Hemoglobin A1C 138.7137 umol/L; Hemoglobin A1c % 5.6 % (<6.0)
[2025-02-23 08:20] LABS: Alanine Aminotransferase 32 U/L (0-40); Albumin Level 4.6 g/dL (3.5-5.0); Alkaline Phosphatase 108 U/L (39-117); Aspartate Amino Transferase 28 U/L (5-37); Bilirubin Direct 0.2 mg/dL (0.0-0.5); Bilirubin Total 0.6 mg/dL (0.0-1.0); Total Protein 7.8 g/dL (6.5-8.0)
[2025-02-23 08:36] LABS: HBS Num1 1.39 mIU/mL (0-7.99); HBc Num1 0.21 S/CO (0.00-0.79); Hepatitis B Core Antibody Nonreactive (Nonreactive); Hepatitis B Surface Antigen Negative (Negative); ~HepC Num1 0.09 S/CO (0.00-0.79); ~Hepatitis B Surface Antibody NONREACTIVE (Nonreactive); ~Hepatitis C Antibody Nonreactive (Nonreactive)
== END 2025-02-23 06:50 | disposition home or self-care (01) ==
LOC: HO.LAB 06:49
PROVIDERS: PCP Internal Medicine; Visit Provider Internal Medicine
DX: R79.89 Other specified abnormal findings of blood chemistry (principal)
CPT/HCPCS: 36415; 80076; 83036; 86704; 86706; 86803; 87340

== ENCOUNTER 2025-02-28 08:35 | Outpatient (AMB) | payer MEDICARE, OTHER, SELFPAY ==
[2025-02-28 08:45] VITALS: BP 140/72; PULSE 76; O2SAT 97; BMI 34.7
--- NOTE | 2025-02-28 08:45 | A.OFFPC_ITS ---
Vital Signs 02/28/25 08:45 Height 6 ft 2 in Weight 270 lb BMI 34.7 BP 140/72 H Blood Pressure Location Lt brachial Position Sitting Pulse 76 Pulse Source Pulse Oximeter Pulse Oximetry (%) 97 Oxygen Delivery Method Room Air Intake Visit Reasons: 6 month f/u Allergies No Known Allergies Allergy (Verified 02/28/25 08:45) Medication List - Last Reconciled 02/28/25 by Ramon Baird MD allopurinol 300 mg PO DAILY alprazolam 1 mg PO DAILY PRN amitriptyline 25 mg PO BEDTIME 90 days amlodipine 5 mg PO DAILY apixaban (Eliquis) 5 mg PO BID atorvastatin 20 mg PO DAILY carvedilol 37.5 mg PO BID chlorthalidone 0.5 tablet daily; flecainide 100 mg PO Q12H folic acid 1 mg PO DAILY levothyroxine 175 mcg PO DAILY lisinopril 40 mg PO DAILY tadalafil 20 mg PO DAILY PRN Tobacco use date assessed: 02/28/25 Fall risk assessment: No Falls in past year Last assessed Fall Risk: 02/28/25 Dental Screening Dental Screen Date: 02/28/25 Did you have a dental visit in the last 12 months?: Yes Did you have a dental problem in the last 6 months where you did not have access to dental care?: No Was dental information given to patient?: Patient has dentist [facility] Medical History CKD (chronic kidney disease) History of cardioversion BPH (benign prostatic hyperplasia) Erectile dysfunction Obstructive sleep apnea Anxiety Aortic dilatation Obesity (BMI 30-39.9) Lumbar spondylosis Interstitial cystitis BPH (benign prostatic hyperplasia) Impaired glucose tolerance Hypercholesterolemia Hypertension Gout Hypothyroid Paroxysmal atrial fibrillation Surgical History Hx of colonoscopy (2019) Hx of shoulder surgery Hx of total knee replacement History of prostatectomy History of ankle surgery Family History Father Stroke Mother Alzheimers disease Social History Household Members: Spouse Housing: House Are you a primary healthcare network consultant to a significant other at home: No Do you presently have visiting nurse or other home services: No Alcohol intake: current Alcohol intake frequency: holidays/special occasions only Comment: 2 drinks a month Patient Tobacco Use Status: Never used Tobacco Tobacco use type: Cigarette e-Cigarette/Vaping Use: Never Used Second Hand Smoke Exposure: No service: No Current occupational status: employed Cognitive needs: No Hearing needs: No Vision needs: Yes Questionnaire PHQ-9 Over the last 2 weeks, how often have you been bothered by any of the following problems? 1. Little interest or pleasure in doing things: not at all 2. Feeling down, depressed, or hopeless: not at all 3. Trouble falling or staying asleep, or sleeping too much: not at all 4. Feeling tired or having little energy: not at all 5. Poor appetite or overeating: not at all 6. Feeling bad about yourself - or that you are a failure or have let yourself or your family down: not at all 7. Trouble concentrating on things, such as reading the newspaper or watching television: not at all 8. Moving or speaking so slowly that other people could have noticed. Or the opposite - being so fidgety or restless that you have been moving around a lot more than usual: not at all 9. Thoughts that you would be better off or of hurting yourself in some way : not at all Total score: 0 Depression Screening Interpretation: Negative Depression Screening Done: Yes Source: Developed by Drs. Scott Barnes, Cami Heart, Jaren Chandra and colleagues, with an educational travon from [employer]. Thrive Questionnaire Date Thrive assessed: 02/26/25 I am a: Patient What is your living situation today?: I have a steady place to live Within the past 12 months, did the food you bought not last and you didn't have the money to get more?: Never true Within the past 12 months, did you worry whether your food would run out before you got money to buy more?: Never true Do you have trouble paying for medicines?: No Do you have trouble getting transportation to medical appointments?: No Do you have trouble paying your heating and electricity bill?: No Do you have trouble taking care of your child, family member or friend?: No Do you have trouble with day-to-day activities such as bathing, preparing meals, shopping, managing finances, etc.?: No Are you currently unemployed and looking for a job?: No Are you interested in more education?: No Please select the resources that you would like help with: None Currently or been in a relationship where the following occur: No concerns reported THRIVE Score: 0 AUDIT C Alcohol Use Questionnaire (AUDIT-C) 1. How often do you have a drink containing alcohol?: 2-4 times a month 3. How often do you have six or more drinks on one occasion?: Never Total Score: 2 LUISA-7 AMB Questionnaire LUISA-7 Date LUISA - 7 assessed: 02/28/25 Feeling nervous, anxious, or on edge: 0 = Not at all Not being able to stop or control worryin = Not at all Worrying too much about different things: 0 = Not at all Trouble relaxin = Not at all Being so restless that it is hard to sit still: 0 = Not at all Becoming easily annoyed or irritable: 0 = Not at all Feeling afraid as if something awful might happen: 0 = Not at all Total LUISA-7 score (0-4 normal; 5-9 mild; 10-14 moderate; 15-21 severe): 0 Source: Developed by Drs. Scott Barnes, Cami Heart, Jaren Chandra and colleagues, with an educational travon from [employer]. Physical exam (Primary Care) Vital Signs: Last Vital Signs Pulse 76 02/28/25 08:45 BP 140/72 H 02/28/25 08:45 Pulse Ox 97 02/28/25 08:45 Oxygen Delivery Method Room Air 02/28/25 08:45 BMI result Body Mass Index 34.7 Tobacco/Smoking Status: Tobacco use Status Tobacco use date assessed 02/28/25 02/28/25 08:46 Patient Tobacco Use Status Never used Tobacco 02/28/25 08:46 Tobacco use type Cigarette 02/28/25 08:46 e-Cigarette/Vaping Use Never Used 02/28/25 08:46 PHQ-9: PHQ-9 Score PHQ-9: Total score 0 02/28/25 09:15 Depression Screening Interpretation: Negative Thrive Assessment: Date of Thrive Assessment Date Thrive assessed 02/26/25 02/28/25 08:46 Currently or been in a relationship where the following occur: No concerns reported Const General: alert; No acute distress Eyes Conjunctivae: conjunctivae normal Resp Auscultation: clear to auscultation bilaterally Cardio Rate: regular rate Rhythm: regular rhythm GI Inspection: Yes normal to inspection Extrem General: Yes normal to inspection and No edema Coding Level of Care Code Est Pt Level 4 (66325) Complex EM visit Add On G2211 Diagnoses Tubular adenoma of colon D12.6 Cholelithiasis K80.20 Obstructive sleep apnea G47.33 Obesity (BMI 30-39.9) E66.9 Impaired glucose tolerance R73.02 Hypercholesterolemia E78.00 Essential hypertension I10 Hypertension type: essential hypertension Acquired hypothyroidism E03.9 Hypothyroidism type: acquired Paroxysmal atrial fibrillation I48.0 Assessment & Plan Assessment & Plan (1) Tubular adenoma of colon: Comment: Two 2024 negative 10 years Code(s): D12.6 - Benign neoplasm of colon, unspecified Category: Medical Plan: Patient had a colonoscopy this year and was advised 10 years recall (2) Cholelithiasis: Comment: June 2024 Code(s): K80.20 - Calculus of gallbladder without cholecystitis without obstruction Category: Medical Plan: Low-fat diet and exercise (3) Obstructive sleep apnea: Comment: With CPAP Code(s): G47.33 - Obstructive sleep apnea (adult) (pediatric) Category: Medical Plan: Continue to use the CPAP more than 4 hours a night and benefits from this. Follows up with sleep Medicine (4) Obesity (BMI 30-39.9): Code(s): E66.9 - Obesity, unspecified Category: Medical Plan: Diet and exercise (5) Impaired glucose tolerance: Code(s): R73.02 - Impaired glucose tolerance (oral) Category: Medical Plan: Decrease the amount of carbohydrate intake, pasta, bread, rice and potatoes are all sugar and that is aside from all the sweet stuff, remember that fruits are good but they are Sweet also. (6) Hypercholesterolemia: Code(s): E78.00 - Pure hypercholesterolemia, unspecified Category: Medical Plan: Avoid fried foods, chicken skin, eggs, butter margarine, pastries and meat. Be it pork or beef they have a lot of cholesterol on atorvastatin 20 mg once a day (7) Hypertension: Code(s): I10 - Essential (primary) hypertension Category: Medical Qualifiers: Hypertension type: essential hypertension Qualified Code(s): I10 - Essential (primary) hypertension Plan: Continue with blood pressure medication. Decrease salt intake and exercise pr esently on carvedilol 37.5 mg twice a day chlorthalidone lisinopril 40 mg once a day (8) Hypothyroid: Code(s): E03.9 - Hypothyroidism, unspecified Category: Medical Qualifiers: Hypothyroidism type: acquired Qualified Code(s): E03.9 - Hypothyroidism, unspecified Plan: Continue with thyroid medication (9) Paroxysmal atrial fibrillation: Comment: Fourteen day event monitor August 2020 ablation, [place] February 2019 cardioversion August 2019 Nuclear scan myocardial normal my 56% September 2019March 2020 echo EF 65-70% ascending aorta 3.9 cm, March 2023 Code(s): I48.0 - Paroxysmal atrial fibrillation Category: Medical Plan: Patient follows up with Cardiology and was advised another ablation. Plan History of Present Illness The patient is a 64-year-old male presenting for follow-up on various chronic conditions. He has an intricate past medical history including atrial fibri llation treated with pulmonary vein isolation in 2019 and 2020 and remains on flecainide. Despite these treatments, atrial fibrillation persists, and further ablation is considered. His blood pressure, previously controlled with beta blockers, lisinopril, and diuretics, now requires an increased dosage of amlodipine due to recent concerning readings. Recent lab work highlighted an elevated calcium level, but other parameters, including electrolytes, creatinine, and liver enzymes, presented normal values. The patient suffers from obstructive sleep apnea, effectively managed with CPAP, and his recent colonoscopy and cholelithiasis are currently without complications. The patient continues lifestyle management with exercise and dietary modification (low-fat diet) for weight control and prevention of any gallbladder symptoms. Health Maintenance - Continuous use of CPAP for obstructive sleep apnea. - Normal colonoscopy in September 2024 with next follow-up in 10 years. - Blood work from November 2023 includes a focus on normal creatinine levels (1.1) and stable liver function tests. - Lifestyle modification: exercise and low-fat diet for cholesterol management and gallbladder stone mitigation. - A1c and blood glucose levels monitored with no current abnormalities. Social History - Reports being active with gym attendance, involvement in home and yard work when possible. - Attempts to maintain a low-fat diet to manage cholelithiasis and weight. - Engages in exercise as a form of weight control and lifestyle modification for overall health. Review of Systems - Cardiovascular: Reports elevated blood pressure readings. - Respiratory: Reports effective CPAP usage. - Gastrointestinal: Reports asymptomatic cholelithiasis. - Endocrine: Reports consistent management of hypothyroidism with medication. - Musculoskeletal: Denies new leg swelling; slight persistent swelling noted. - Psychiatric: Reports anxiety disorder, managed with current medications. Physical Exam - Cardiovascular- Blood pressure elevated at 140/80 mmHg. - Respiratory- Lungs clear to auscultation. - General- No new significant findings; patient appears in stable condition. Results - Labs: Normal liver function tests; normal creatinine (1.1); calcium slightly elevated (10.5); normal blood counts and uric acid; low C-reactive protein. - Tests: Normal stress echocardiogram in October 2024. - Imaging: Abdominal ultrasound in May showed cholelithiasis. Plan The patient will persist with the current management of his chronic conditions. For atrial fibrillation, he remains on flecainide, with additional ablation considered in the future. Antihypertensive treatment now includes an increased dose of amlodipine to 10 mg to optimize blood pressure control. The patient's cholesterol and hypothyroidism medication regimens will remain unchanged. Lifestyle recommendations involve maintaining a low-fat diet and incorporating regular exercise, specifically aimed at managing cholelithiasis and optimizing weight control. Continuous blood pressure monitoring is crucial, with adjustments dependent on further readings. Follow-ups and regular lab checks were emphasized for ongoing management. Patient was informed and verbally consented to the use of an ambient scribe for clinic note documentation during this visit. Discussion Notes I advised the patient on the importance of maintaining control over his blood pressure and emphasized the target goal. We agreed on increasing amlodipine to 10 mg/day, discussing the potential benefits of improved control against possible side effects like leg swelling. The significance of fully utilizing CPAP for sleep apnea was reiterated given its current benefit in symptom management. Further ablation was considered for atrial fibrillation if symptoms persist, with follow-ups with cardiology in place for future planning. I confirmed that recent lab results indicate stable control of his chronic kidney disease and emphasized the continuation of diet and exercise for managing overall health. The potential need for surgical intervention for gallstones was explored should symptoms arise, though currently asymptomatic. Patient Instructions - Continue using CPAP for more than 4 hours nightly. - Take amlodipine as prescribed and monitor for any leg swelling. - Maintain a low-fat diet to manage gallstones and overall health. - Continue current medications for hypertension, cholesterol, and hypothyroidism as discussed. - Monitor blood pressure regularly, and report readings below 110 mmHg. - Follow-up as scheduled for routine checks and any new symptoms. - Stay active with regular exercise as feasible. - Contact our office if experiencing new gallbladder symptoms such as pain or digestive discomfort. Orders: Orders Complete Blood Count Auto Diff 3 Months E03.9 - Hypothyroidism, unspecified Free T4 (Free Thyroxine) 3 Months E03.9 - Hypothyroidism, unspecified Lipid Panel 3 Months E03.9 - Hypothyroidism, unspecified, E78.00 - Pure hypercholesterolemia, unspecified Prostate Specific Antigen Scr 3 Months E03.9 - Hypothyroidism, unspecified Hemoglobin A1c 3 Months E03.9 - Hypothyroidism, unspecified B Type Natriuretic Peptide 3 Months E03.9 - Hypothyroidism, unspecified Magnesium 3 Months E03.9 - Hypothyroidism, unspecified Comprehensive Met. Panel 3 Months E03.9 - Hypothyroidism, unspecified Thyroid Stimulating Hormone 3 Months E03.9 - Hypothyroidism, unspecified Vitamin B12 and Folate 3 Months E03.9 - Hypothyroidism, unspecified Medications: New amlodipine 10 mg PO DAILY 90 tabs 2RF I10 - Essential (primary) hypertension
--- OUTSIDE RECORDS SUMMARY | 2025-02-28 08:52 | XMS_ITS ---
Author Organization [facility] Address [address] [place] [id number] Care Team Providers Care Digital Content Producer Name Role Phone Ramon Baird MD Primary Care Provider Fortino Lewis Jr [phone] REASON FOR VISIT need history and physical from 24 Encounters Encounter Location Date Provider Diagnosis [facility] [address] [place] [id number] 10/04/2024 Fortino Pagan Jr Plan Of Treatment No Information Progress Notes * AVI BLOCKDOB:1960 (64 yo M)Acc No.[id number]:10/04/2024 Patient:?AVI BLOCK :1960???Age:64 Y???Sex:Male Address:[address] [place] [address] * true * Date:? Generated for Printi joby/Fakeving/eTransmitting on:?02/28/2025 08:52 AM EDT
--- OUTSIDE RECORDS SUMMARY | 2025-02-28 08:52 | XMS_ITS | Clinical Summary ---
Author Organization [address] [place] [address] Address [address] [place] [address] Phone Care Team Providers Care Port Captain Name Role Phone Ramon Baird MD Primary Care Provider [phone] Allergies No known active allergies Medications carvediloL (COREG) 25 mg tablet Take 1.5 Tablets by mouth 2 times daily (with meals). 07/10/2024 Active flecainide (TAMBOCOR) 100 mg tablet Take 1 Tablet by mouth 2 times daily. 05/25/2023 Active amitriptyline (ELAVIL) 25 mg tablet Take 1 tablet by mouth daily. Active allopurinoL (ZYLOPRIM) 100 mg tablet Take 3 (three) 100 mg tablets by mouth daily. Active atorvastatin (LIPITOR) 20 mg tablet Take 1 tablet by mouth daily. Active levothyroxine (SYNTHROID, LEVOTHROID) 175 mcg tablet Take 1 tablet by mouth daily. Active lisinopril (PRINIVIL,ZESTR IL) 40 mg tablet Take 1 tablet by mouth daily. Active Eliquis 5 mg tablet TAKE 1 TABLET TWICE A DAY 180 tablet 1 11/21/2024 Active folic acid (FOLVITE) 1 mg tablet Take 1 tablet (1 mg total) by mouth 1 (one) time each day. Active amLODIPine (NORVASC) 5 mg tablet Take 1 tablet (5 mg total) by mouth 1 (one) time each day. 30 each 11 12/28/2024 Active chlorthalidone (HYGROTON) 25 mg tablet TAKE 1/2 TABLET DAILY 45 tablet 2 01/08/2025 Active Active Problems Problem Noted Date Diagnosed Date Ascending aorta dilation ([facility]/HCC V24) 3 Overview (07/31/2024): Last Assessment & Plan: Stable. Assessment & Plan (12/28/2024 10:39 AM EDT): With minimal ascending aorta dilation for his height. Repeat echocardiogram in a couple of years. Chest pain 12/10/2020 Overview (07/31/2024): Chest pain Dyslipidemia 12/10/2020 Overview (07/31/2024): Dyslipidemia Heart murmur 12/10/2020 Overview (07/31/2024): Heart murmur Palpitations 12/10/2020 Overview (07/31/2024): Palpitations Premature atrial contraction 12/10/2020 Overview (07/31/2024): Premature atrial contraction Tachycardia 12/10/2020 Overview (07/31/2024): Tachycardia Atrial fibrillation (CMS/HCC V24, CMS/HCC V28) 1 12/09/2019 Overview (07/31/2024): first diagnosed in 2013, with increased frequency requiring cardioversion ? 3 began flecainide and underwent pulmonary vein isolation 03/20/2020. Flecainide discontinued on that day. BB decreased post procedure. With documented symptomatic recurrence - on September 04 2020 underwent reisolation of the right superior and left superior pulmonary veins as well as creation of tricuspid isthmus line Last Assessment & Plan: Has been maintained on flecainide and carvedilol. Doing well overall. Last ischemia workup was 2 and half years ago. Will schedule stress echo. Assessment & Plan (12/28/2024 10:39 AM EDT): Status post 2 ablation procedures almost [id number]. Unfortunately, he had recurrent A-fib fairly quickly after ablation procedure and had to go back to flecainide. So far, he is doing well on flecainide and had no evidence of recurrent A-fib. He is asking whether he should have another ablation procedure. I will review this with Dr. Ruiz and then deciding whether is worthwhile to proceed and that the procedure especially in the setting of well-controlled A-fib. Orders: ECG 12 lead HTN (hypertension) 10/08/2020 Overview (07/31/2024): Last Assessment & Plan: Remain elevated on current regimen. Will increase carvedilol to 37.5 mg at twice a day. Will discontinue amlodipine to see whether that contribute to lower extremity edema. Assessment & Plan (12/28/2024 10:39 AM EDT): Blood pressure has remained elevated on high-dose beta-renay, lisinopril and low-dose diuretics. His calcium is slightly elevated and I do not think we can push up higher on chlorthalidone. I will restart low-dose amlodipine. At the meantime, he need to work on the weight and more strict with salt intake and increase activity. Hyperlipidemia 10/08/2020 Overview (07/31/2024): Last Assessment & Plan: We will obtain a copy of his most recent lipid profile. NEIL on CPAP 10/08/2020 Overview (07/31/2024): Last Assessment & Plan: He will have a follow-up next month with the sleep medicine. Encounters Date Type Department Care Team Description 12/28/2024 9:50 AM EDT Office Visit [facility] [address] [place] [address] Rene Contreras MD Paroxysmal atrial fibrillation (CMS/HCC V24, CMS/HCC V28) (Primary Dx); Hypertension, unspecified type; Ascending aorta dilation (CMS/HCC V24) from Last 3 Months Medical History Medical History Date Comments Osteoarthritis of left knee DX:O steoarthritis of left knee Hypothyroidism DX:Hypothyroidis m NEIL (obstructive sleep apnea) DX :NEIL (obstructive sleep apnea) Gout DX:Gout Interstitial cystitis DX:Interst itial cystitis BMI 32.0-32.9,adult DX:BMI 32.0- 32.9,adult Family History Medical History Relation Name Comments Sleep disorder Father Relation Name Status Comments Father Mother Social History Tobacco Use Types Packs/Day Years Used Date Smoking Tobacco: Never Smokeless Tobacco: Never Alcohol Use Standard Drinks/Week Comments Yes 0 (1 standard drink = 0.6 oz pur e alcohol) Sex and Gender Information Value Date Recorded Sex Assigned at Not on file Legal Sex Male 8:11 PM EST Gender Identity Not on file Sexual Orientation Not on file Obstetrics History Last Filed Vital Signs Vital Sign Reading Time Taken Comments Blood Pressure 140/80 12/28/2024 9:38 AM EDT Pulse 65 12/28/2024 9:38 AM EDT Temperature - - Respiratory Rate - - Oxygen Saturation 97% 12/28/2024 9:38 AM EDT Inhaled Oxygen Concentration - - Weight 126 kg (277 lb) 12/28/2024 9:38 AM EDT Height 188 cm (6' 2 ) 12/28/2024 9:38 AM EDT Body Mass Index 35.56 12/28/2024 9:38 AM EDT Plan of Treatment Health Maintenance Due Date Last Done Comments Colorectal Cancer Screening: Colonoscopy 09/26/2022 Depression Screening 09/26/2022 Hepatitis C Screening 09/26/2022 Medicare Annual Wellness Visit 09/26/2022 Social Influencers of Health Screening 09/26/2022 Falls Risk Assessment 2023 COVID-19 Vaccine ( season) 2024 09/06/2023, 07/10/2022, 07/29/2021, Additional history exists Hypertension/CHF/CAD Annual BMP Blood Test 12/11/2025 12/11/2024, 06/07/2024, 06/07/2024, Additional history exists Cholesterol Screening (Lipid Panel) 11/14/2026 11/14/2021, 11/14/2021 DTaP,Tdap,and Td Vaccines (2 - Td or Tdap) 05/21/2032 05/21/2022 RSV Immunization Adult Patients (1 - 1-dose 75+ series) 2033 Zoster Vaccines Completed 04/18/2020, 09/09/2019 Pneumococcal Vaccine: 50+ Years Completed 05/25/2023, 05/07/2016 Influenza Vaccine Completed 08/31/2024, , 07/10/2022, Additional history exists HIB Vaccines Aged Out No longer eligi ble based on patient's age to complete this topic HPV Vaccines Aged Out No longer eligi ble based on patient's age to complete this topic Hepatitis A Vaccines Aged Out No long er eligible based on patient's age to complete this topic Hepatitis B Vaccines Aged Out No long er eligible based on patient's age to complete this topic IPV Vaccines Aged Out No longer eligi ble based on patient's age to complete this topic MMR Vaccines Aged Out No longer eligi ble based on patient's age to complete this topic Meningococcal ACWY Vaccine Aged Out N o longer eligible based on patient's age to complete this topic Meningococcal B Vaccine Aged Out No l onger eligible based on patient's age to complete this topic RSV Immunization Patients Under 20 months Aged Out No longer eligible based on patient's age to complete this topic Varicella Vaccines Aged Out No longer eligible based on patient's age to complete this topic Procedures Procedure Name Priority Date/Time Associated Diagnosis Comments ECG 12-LEAD Routine 12/28/2024 9:45 AM EDT Paroxysmal atrial fibrillation (CMS/HCC V24, CMS/HCC V28) ANNUAL BMP BLOOD TEST Routine 06/07/2024 LIPID PANEL Routine 11/14/2021 from Last 3 Months or Most Recently Relevant to Health Maintenance Results * ECG 12 lead (12/28/2024 9:45 AM EDT) Ventricular Rate ECG 65 BPM GEMUSE Atrial Rate 65 BPM GEMUSE P-R Interval 166 ms GEMUSE QRS Duration 98 ms GEMUSE Q-T Interval 388 ms GEMUSE QTc 403 ms GEMUSE P Wave [place] 52 degrees GEMUSE R [place] 83 degrees GEMUSE T [place] 76 degrees GEMUSE ECG Interpretation Normal sinus rhythm Normal ECG When compared with ECG of 05-SEP-2020 07:53, T wave amplitude has increased in Inferior leads Confirmed by Rafael CONTRERAS YUFENG ([id number]) on 12/28/2024 10:34:33 AM GEMUSE 12/28/2024 9:45 AM EDT 12/28/2024 10:34 AM EDT Rene Contreras MD ECG ORDERABLES Final Result GEMUSE * Lipid panel (11/14/2021) LDL/HDL Ratio 0 Comment:no interpretation Triglycerides 0 mg/dL Comment:no interpretation Cholesterol 0 mg/dL Comment:no interpretation HDL 0 mg/dL Comment:no interpretation LDL Cholesterol 0 mg/dL Comment:no interpretation Blood Venous blood specimen / Unknown Historical Provider LAB BLOOD ORDERABLES Hilary l Result from Last 3 Months or Most Recently Relevant to Health Maintenance Insurance MEDICARE [facility] Care Teams Port Captain Relationship Specialty Start Date End Date Ramon Baird MD [address] [place] [address] [facility] [place] [id number] PCP - General Internal Medicine 09/08/20
--- OUTSIDE RECORDS SUMMARY | 2025-02-28 08:52 | XMS_ITS ---
Author Organization [facility] Address [address] [place] [address] Care Team Providers Care Arboriculturist Name Role Phone Ramon Baird MD Primary Care Provider Fortino Lewis Jr REASON FOR VISIT screening Encounters Encounter Location Date Provider Diagnosis [facility] Outpatient [address] [place] [phone] 10/13/2024 Fortino Pagan Jr Colon cancer screening Z12.11 Assessments Encounter Date Diagnosis (ICD Code) Assessment Notes Treatment Notes Treatment Clinical Notes Section Notes 10/13/2024 Colon cancer screening (ICD-10 - Z12.11) Plan Of Treatment No Information Progress Notes * AVI BLOCKDOB:1960 (64 yo M)Acc No.[id number]:10/13/2024 COLON WITH MAC Patient:?AVI BLOCK Provider:?Fortino Pagan MD :1960???Age:64 Y???Sex:Male Javad e:10/13/2024 Address[id number] Pcp:Ramon Baird MD Subjective: * Chief Complaints: * ???1. Screening. * Medical History:? Objective: * Vitals:? Assessment: * Assessment: 1.?Colon cancer screening - Z12.11 (Primary)??? Plan: * Treatment: * Procedure Codes:?G0105 COLOR EC CANCR SCR; COLNSCPY HI RISK, 0529F INTRVL 3+YRS PTS CLNSCP DOCD, 0528F RCMND FLW-UP 10 YRS DOCD * * The named appointment provid er may or may not be the originator of this progress note, and it is not deemed complete until electronically signed by the appointment provider. Sign off status: Pending * Provider:?Fortino Pagan MD Date:?1 12/14/2023 Generated for Michelle hemphill/Allie/Reeitting on:?02/28/2025 08:52 AM EDT
--- OUTSIDE RECORDS SUMMARY | 2025-02-28 08:52 | XMS_ITS ---
Author Organization [facility] Address [address] [place] [address] Care Team Providers Care Mortician Investigator Name Role Phone Ramon Baird MD Primary Care Provider Fortino Lewis Jr Unavailable [phone] Allergies No Known Allergies REASON FOR VISIT Patient presents today for a recall colonoscopy Medications Medication SIG (Take, Route, Frequency, Duration) Notes Start Date End Date Status Folic Acid 1 MG TAKE 1 TABLET DAILY Oral for 90 E538,DEFICIENCY OF OTHER SPECIFIED B GROUP VITAMINS Active Lisinopril 40 MG 1 tablet Orally Once a day for 30 day(s) Active Eliquis 5 MG as directed Orally BID Active Levothyroxine Sodium 175 MCG 1 tablet on an empty stomach in the morning Orally Once a day for 30 day(s) Active Allopurinol 100 MG as directed Orally once a day Active Amitriptyline HCl 25 MG 1 tablet at bedtime Orally Once a day Active Atorvastatin Calcium 20 MG 1 tablet Orally Once a day for 30 day(s) Active Flecainide Acetate 100 MG TAKE 1 TABLET TWICE A DAY Oral for 90 Active Carvedilol 25 MG Oral for 90 A ctive MiraLax (colon prep) 8.3 ounce ((238) grams mixed with Gatorade or Crystal Light orally begin at 5:00 p.m. the day before the procedure for 1 day 10/05/2024 Active Chlorthalidone 25 MG Oral for 90 Active Social History Tobacco Use: Social History Observation Description Date Details (start date - stop date) Never Smoker NA - NA Tobacco Use/Smoking Question Answer Notes Patient is a nonsmoker Alcohol Screen Question Answer Notes Did you have a drink contain ing alcohol in the past year? Yes How often did you have a dri nk containing alcohol in the past year? 2 to 4 times a month (2 points) How many drinks did you have on a typical day when you were drinking in the past year? 1 or 2 drinks (0 point) How often did you have 6 or more drinks on one occasion in the past year? 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) Active confirmed Vital Signs Temperature 97.3 degrees Fahrenheit 09/18/20 24 Blood pressure systolic 000 mm Hg 09/18/20 24 Blood pressure diastolic 00 mm Hg 024 Height 75 in 09/18/2024 Weight 265 lbs 09/18/2024 BMI 33.12 kg/m2 09/18/2024 Encounters Encounter Location Date Provider Diagnosis [facility] [address] [place] [address] 09/18/2024 Fortino Pagan Jr Colon cancer screening Z12.11 and 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 We discussed risks and benefits of the procedure today. He understands these and agrees to proceed. This will be scheduled at his convenience. He is advised to stop chlorthalidone the day before the procedure. 09/18/2024 snf current use of diuretic (ICD-10 - Z79.899) We discussed colonoscopy today. We discussed risks and benefits of the procedure today. He understands these and agrees to proceed. This will be scheduled at his convenience. He is advised to stop chlorthalidone the day before the procedure. Plan Of Treatment Medication Medication Name Sig Start Date Stop Date Notes MiraLax (colon prep) 8.3 oun ce ((238) grams mixed with Gatorade or Crystal Light orally begin at 5:00 p.m. the day before the procedure for 1 day 10/05/2024 Treatment Notes Assessment Notes Colon cancer screening Colonoscopy mater ial was printed Future Test Test Name Order Date COLONOSCOPY 10/05/2024 Next Appt Details Follow Up: 1 Year, Reason: Progress Notes * AVI BLOCKDOB:1960 (64 yo M)Acc No.[id number]:09/18/2024 Progress Notes Patient:AVI ADAMS Provider:?Fortino Pagan MD :1960???Age:64 Y???Sex:Male Javad e:09/18/2024 Address:[address] [place], [place] [id number] Pcp:Ramon Baird MD Subjective: * Chief Complaints: * ???1. Patient presents today for a recall colonoscopy. * HPI: ???New symptom(s):? Avi is a pleasant 64-year-old man seen today in consultation. He has a history of colon polyps and last underwent colonoscopy in 2019 with removal of a tubular adenoma and five-year followup is due now. He has no complaints of rectal bleeding or change in his bowel habits. Weight and appetite have been stable. * ROS:?General/Constitutional:?Change in appetite?denies.?Fatigue?denies.?ENT:?Patient denies?difficulty swallowing.?Respiratory:?Patient denies?shortness of breath.?Cardiovascular:?Patient denies?chest pain.?Gastrointestinal:?Comments?See HPI for details.?Genitourinary:?Difficulty urinating?denies.?Incontinence?denies.?Musculoskeletal:?Patient denies?muscle aches.?Skin:?Patient denies?pruritis.?Neurologic:?Patient denies?low back pain.?Psychiatric:?Patient denies?mental or physical abuse.? * Medical History:?Hypertensio n, Hyperlipidemia, Atrial fibrillation, cardioversion x2., Hypothyroidism, Interstitial cystitis, CK D. stage a one, BPH, Gout, NEIL/CPAP, Colonoscopy 09/05 tubular adenoma, five-year followup. * Surgical History:?knee repla cement , ankle replacement , shoulder surgery . * Family History:?Father: dece ased, diagnosed with HTN (hypertension), Diabetes, Heart disease.?Mother: .? no known hx of colon cancer polyps or liver ds. * Social History:?Tobacco Use:?Tobacco Use/Smoking?Patient is a?nonsmoker.?Drugs/Alcohol:?Alcohol Screen?Did you have a drink containing alcohol in the past year??Yes,?How often did you have a drink containing alcohol in the past year??2 to 4 times a month (2 points),?How many drinks did you have on a typical day when you were drinking in the past year??1 or 2 drinks (0 point),?How often did you have 6 or more drinks on one occasion in the past year??Never (0 point),?Points?2,?Interpretation?Negative.?Miscellaneous:?Marital status: . Occupation: retired. * Medications:?Taking Allopuri nol 100 MG Tablet as directed Orally once a day, Taking Amitriptyline HCl 25 MG Tablet 1 tablet at bedtime Orally Once a day, Taking Atorvastatin Calcium 20 MG Tablet 1 tablet Orally Once a day, Taking Levothyroxine Sodium 175 MCG Tablet 1 tablet on an empty stomach in the morning Orally Once a day, Taking Lisinopril 40 MG Tablet 1 tablet Orally Once a day, Taking Eliquis 5 MG Tablet as directed Orally BID, Taking Folic Acid 1 MG Tablet TAKE 1 TABLET DAILY Oral , Notes: E538,DEFICIENCY OF OTHER SPECIFIED B GROUP VITAMINS, Taking Flecainide Acetate 100 MG Tablet TAKE 1 TABLET TWICE A DAY Oral , Taking Carvedilol 25 MG Tablet Oral , Taking Chlorthalidone 25 MG Tablet Oral , Discontinued amLODIPine Besylate 10 MG Tablet 1 tablet Orally Once a day, Discontinued Metoprolol Succinate 100 MG Capsule ER 24 Hour Sprinkle 1 capsule Orally twice a day, Discontinued MiraLax (colon prep) 8.3 ounce ((238) grams mixed with Gatorade or Crystal Light orally begin at 5:00 p.m. the day before the procedure, Medication List reviewed and reconciled with the patient * Allergies:?N.K.D.A. Objective: * Vitals:?Wt: 265 lbs, Ht: 75 in, BMI:33.12 Index, BP: 000/00 mm Hg, Temp: 97.3. * Examination: ???General Examination: ?GENERAL APPEARANCE:?in no acute distress.?HEAD:?normocephalic.?EYES:?sclera non-icteric.?ORAL CAVITY:?mucosa moist.?NECK/THYROID:?no lymphadenopathy.?SKIN:?anicteric.?HEART:?S1, S2 normal, no murmurs.?LUNGS:?clear to auscultation bilaterally.?CHEST:?normal shape and expansion.?ABDOMEN:?soft, nontender, nondistended, bowel sounds present, no organomegaly .?EXTREMITIES:?no clubbing, cyanosis, or edema.?PSYCH:?cognitive function intact.? 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 We discussed colonoscopy tod ay. We discussed risks and benefits of the procedure today. He understands these and agrees to proceed. This will be scheduled at his convenience. He is advised to stop chlorthalidone the day before the procedure. Plan: * Treatment: * Procedure Codes:?3017F COLOR ECTAL CA SCREEN DOC REV, G9902 Pt scrn tbco and id as user, G9744 PATIENT NOT ELIG D/T ACTIVE DX HTN * Preventive Medicine:? ??Counseling:?Care goal follow-up plan:?Above Normal BMI Follow-up?Giving encouragement to exercise,?BMI management provided?Yes.? ??Screenings:?Fall Risk Screening?Fall Risk Assessment:?No falls in the past year,?Screening:?No falls in the past year,?Assessment:?Not performed, no reason specified,?Plan of Care:?Not documented, no reason specified.? * Follow Up:?1 Year * * Sign off status: Completed true * Provider:?Fortino Pagan MD Date:?1 11/19/2023 Generated for Skyei joby/Allie/eTransmitting on:?02/28/2025 08:52 AM EDT History and Physical Notes * HPI (History of Present Illness) Category Sub-Category Detail Notes Category Not es New symptom(s) Avi is a p leasant 64-year-old man seen today in consultation. He has a history of colon polyps and last underwent colonoscopy in 2019 with removal of a tubular adenoma and five-year followup is due now. He has no complaints of rectal bleeding or change in his bowel habits. Weight and appetite have been stable. Examination Category Sub-Category Detail Notes Category Not es General Examination GENERAL APPEARANCE: in no acute di stress HEAD: normocephalic EYES: sclera non-icteric NECK/THYROID: no lymphadenopathy HEART: S1, S2 normal, no mu rmurs CHEST: normal shape and exp ansion LUNGS: clear to auscultatio n bilaterally ABDOMEN: soft, nontender, non distended, bowel sounds present, no organomegaly SKIN: anicteric EXTREMITIES: no clubbing, cyanosi s, or edema PSYCH: cognitive function i ntact ORAL CAVITY: mucosa moist
--- OUTSIDE RECORDS SUMMARY | 2025-02-28 08:53 | XMS_ITS | Patient Health Record ---
Author Organization [facility] Address [address] [place] [address] Care Team Providers Care Quality Assurance Lead Name Role Phone Ramon Baird MD Primary Care Provider Fortino Lewis Jr Allergies No Known Allergies Reason For Referral No Information Medications Medication SIG (Take, Route, Frequency, Duration) Notes Start Date End Date Status Folic Acid 1 MG TAKE 1 TABLET DAILY Oral for 90 E538,DEFICIENCY OF OTHER SPECIFIED B GROUP VITAMINS Active Flecainide Acetate 100 MG TAKE 1 TABLET TWICE A DAY Oral for 90 Active Carvedilol 25 MG Oral for 90 A ctive Levothyroxine Sodium 175 MCG 1 tablet on an empty stomach in the morning Orally Once a day for 30 day(s) Active Lisinopril 40 MG 1 tablet Orally Once a day for 30 day(s) Active Eliquis 5 MG as directed Orally BID Active Allopurinol 100 MG as directed Orally once a day Active Amitriptyline HCl 25 MG 1 tablet at bedtime Orally Once a day Active Atorvastatin Calcium 20 MG 1 tablet Orally Once a day for 30 day(s) Active MiraLax (colon prep) 8.3 ounce ((238) grams mixed with Gatorade or Crystal Light orally begin at 5:00 p.m. 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 (Z79.899) Active confirmed Vital Signs Temperature 97.3 degrees Fahrenheit 09/18/2024 Blood pressure diastolic 00 mm Hg 09/18/2024 Height 75 in 09/18/2024 Blood pressure systolic 000 mm Hg 09/18/2024 Weight 265 lbs 09/18/2024 BMI 33.12 kg/m2 09/18/2024 Encounters Encounter Location Date Provider Diagnosis [facility] [address] [place] [id number] 10/13/2024 Fortino Pagan Jr Colon cancer screening Z12.11 [facility] [address] [address] 09/18/2024 Fortino Pagan Jr Colon cancer screening Z12.11 and group home current use of diuretic Z79.899 [facility] [address] [address] 10/04/2024 Fortino Pagan Jr Assessments Encounter Date Diagnosis (ICD Code) Assessment Notes Treatment Notes Treatment Clinical Notes Section Notes 10/13/2024 Colon cancer screening (ICD-10 - Z12.11) 09/18/2024 Colon cancer screening (ICD-10 - Z12.11) Colonoscopy material was printed We discussed colonoscopy today. We discussed risks and benefits of the procedure today. He understands these and agrees to proceed. This will be scheduled at his convenience. He is advised to stop chlorthalidone the day before the procedure. 09/18/2024 restaurant cook current use of diuretic (ICD-10 - Z79.899) We discussed colonoscopy today. We discussed risks and benefits of the procedure today. He understands these and agrees to proceed. This will be scheduled at his convenience. He is advised to stop chlorthalidone the day before the procedure. Plan Of Treatment Future Test Test Name Order Date COLONOSCOPY 07/20/2019 COLONOSCOPY 10/05/2024 Insurance Providers Payer Name Payer Address Payer Phone Subscriber Number Group Number Insured Name Patient Relationship to Insured Coverage Start Date Coverage End Date MEDICARE OF [place] [address] [place] [address] [phone] [id number] AVI BLOCK Self - patient is the insured [employer] ([place]) [address] [place] [address] [id number] AVI BLOCK Self - patient is the insured Medical (General) History Medical History History ICD Code Hypertension Hyperlipidemia Atrial fibrillation, cardioversion x2. Hypothyroidism Interstitial cystitis, CK D. stage a one , BPH Gout NELI/CPAP Colonoscopy 09/05 tubular adenoma, five- year followup Surgical History Surgery Date(Month/Year) knee replacement ankle replacement shoulder surgery
== END 2025-02-28 09:32 | disposition home or self-care (01) ==
LOC: HO.HMCH 08:36
PROVIDERS: PCP Internal Medicine; Visit Provider Internal Medicine
DX: I48.0 Paroxysmal atrial fibrillation (principal); D12.6 Benign neoplasm of colon, unspecified; Z68.34 Body mass index [BMI] 34.0-34.9, adult; E66.9 Obesity, unspecified; K80.20 Calculus of gallbladder without cholecystitis without obstruction; G47.33 Obstructive sleep apnea (adult) (pediatric); R73.02 Impaired glucose tolerance (oral); E78.00 Pure hypercholesterolemia, unspecified; I10 Essential (primary) hypertension; E03.9 Hypothyroidism, unspecified

== ENCOUNTER → 2025-02-28 08:35 | Outpatient (BNVA) | payer MEDICARE, OTHER, SELFPAY | PROVIDERS: PCP Internal Medicine; Visit Provider Internal Medicine | DX: D12.6 Benign neoplasm of colon, unspecified (principal); K80.20 Calculus of gallbladder without cholecystitis without obstruction; G47.33 Obstructive sleep apnea (adult) (pediatric); E66.9 Obesity, unspecified; R73.02 Impaired glucose tolerance (oral); E78.00 Pure hypercholesterolemia, unspecified; E03.9 Hypothyroidism, unspecified; I10 Essential (primary) hypertension; I48.0 Paroxysmal atrial fibrillation | CPT/HCPCS: 99212 ==

== ENCOUNTER 2025-06-09 07:12 | Outpatient (REF) | payer MEDICARE, OTHER, SELFPAY ==
[2025-06-09 07:28] LABS: MANUAL DIFF FLAG NO
[2025-06-09 07:59] LABS: Hematocrit 38.1 % (42.0-52.0); Hemoglobin 13.2 g/dl (14.0-18.0); Imm Gran Abs Auto 0.05 X10*3/uL (0.00-0.03); Imm Gran Pct Auto 0.7 % (0.0-0.4); Lymphocytes Absolute Auto 1.0 X10*3/uL (1.2-4.9); Mean Corpuscular HGB Conc 34.6 g/dl (31.0-36.0); Mean Corpuscular Hemoglobin 30.1 pg (27.0-33.0); Mean Corpuscular Volume 86.8 fL (80.0-98.0); NRBC Abs Auto 0.000 X10*3/uL (0.0-0.012); NRBC Pct Auto 0.0 /100WBC (0.0-0.2); Platelet Count 269 X10*3/uL (160-400); Red Blood Count 4.39 X10*6/uL (4.60-5.80); White Blood Count 6.7 X10*3/uL (4.8-10.8)
[2025-06-09 08:23] LABS: Hemoglobin A1C 132.1828 umol/L; Total Hemoglobin (HGBA1C) 3488.8462 umol/L
[2025-06-09 08:31] LABS: B Type Natriuretic Peptide 17 pg/mL (<100)
[2025-06-09 08:39] LABS: Alanine Aminotransferase 34 U/L (0-40); Albumin Level 4.8 g/dL (3.5-5.0); Alkaline Phosphatase 106 U/L (39-117); Anion Gap 13 (12-20); Aspartate Amino Transferase 34 U/L (5-37); Blood Urea Nitrogen 21 mg/dL (9-16); Calcium 10.2 mg/dL (8.4-10.2); Carbon Dioxide 28 mmol/L (22-29); Chloride 103 mmol/L (96-108); Cholesterol 147 mg/dL (<200); Estimated Glomerular Filt Rate 56; HDL Cholesterol 27 mg/dL (>40); Magnesium 2.3 mg/dL (1.6-2.6); Potassium 4.3 mmol/L (3.3-5.1); Sodium 140 mmol/L (135-145); Total Protein 7.4 g/dL (6.5-8.0); Triglycerides 163 mg/dL (<150)
[2025-06-09 08:57] LABS: Free T4 (Free Thyroxine) 1.08 ng/dL (0.71-1.85); Thyroid Stimulating Hormone 1.87 uIU/mL (0.32-4.0)
[2025-06-09 09:09] LABS: Folate 12.8 ng/mL (> or = 4.0); Vitamin B12 327 pg/mL (200-900)
== END 2025-06-09 07:13 | disposition home or self-care (01) ==
LOC: HO.LAB 07:12
PROVIDERS: PCP Internal Medicine; Visit Provider Internal Medicine
DX: Z12.5 Encounter for screening for malignant neoplasm of prostate (principal); Z13.1 Encounter for screening for diabetes mellitus; E03.9 Hypothyroidism, unspecified; E78.00 Pure hypercholesterolemia, unspecified
CPT/HCPCS: 36415; 80053; 80061; 82607; 82746; 83036; 83735; 83880; 84153; 84439; 84443; 85025

== ENCOUNTER 2025-06-12 10:51 | Outpatient (AMB) | payer MEDICARE, OTHER, SELFPAY ==
--- OUTSIDE RECORDS SUMMARY | 2024-10-13 06:30 | XMS_ITS ---
Author Organization [facility] Address [address] [place] [id number] Care Team Providers Care Software Reliability Engineer Name Role Phone Ramon Baird MD Primary Care Provider Fortino Lewis Jr [phone] REASON FOR VISIT screening Encounters Encounter Location Date Provider Diagnosis [facility] Outpatient [address] [place] [id number] 10/13/2024 Fortino Pagan Jr Colon cancer screening Z12.11 Assessments Encounter Date Diagnosis (ICD Code) Assessment Notes Treatment Notes Treatment Clinical Notes Section Notes 10/13/2024 Colon cancer screening (ICD-10 - Z12.11) Plan Of Treatment No Information Progress Notes * AVI BLOCKDOB:1960 (65 yo M)Acc No.[id number]:10/13/2024 COLON WITH MAC Patient: AVI OVIEDO Provider: Marco A Pagan MD :1960 A ge:64 Y S ex:Male Date:10/13/2024 Address[address] [id number] Pcp:Ramon Baird MD Subjective: * Chief Complaints: * 1 . Screening. * Medical History: Objective: * Vitals: Assessment: * Assessment: 1. C olon cancer screening - Z12.11 (Primary) Plan: * Treatment: * Procedure Codes: G 0105 COLOREC CANCR SCR; COLNSCPY HI RISK, 0529F INTRVL 3+YRS PTS CLNSCP DOCD, 0528F RCMND FLW-UP 10 YRS DOCD * * The named appointment provid er may or may not be the originator of this progress note, and it is not deemed complete until electronically signed by the appointment provider. Sign off status: Pending * Provider: Marco A Pagan MD Date: 12/14/2023 Generated for Michelle hemphill/Allie/Reeitting on: 0 06/12/2025 11:44 AM EDT
--- OUTSIDE RECORDS SUMMARY | 2025-06-07 08:05 | XMS_ITS | Encounter Summary ---
Author Organization [facility] Address [address] [facility] [address] [place] [phone] Phone Care Team Providers Care Gear Cutter Name Role Phone Ramon Baird MD Primary Care Provider [phone] Encounter Details Date Type Department Care Team (Latest Contact Info) Description 06/07/2025 8:05 AM EDT - 06/07/2025 11:59 PM EDT Hospital Encounter [facility] [address] [place] [id number] Carla Oh MD [address] [facility], [address] [place] [address] [email or web address] Discharge Disposition: Home or Self Care Social History Tobacco Use Types Packs/Day Years Used Date Smoking Tobacco: Never Smokeless Tobacco: Never Alcohol Use Standard Drinks/Week Comments Yes 2 (1 standard drink = 0.6 oz pur e alcohol) Education Answer Date Recorded Are you interested in more education? Not on bahman e 02/12/2023 Are you concerned about learning? Not on file 02/12/2023 No 02/12/2023 No 02/12/2023 Digital Access Answer Date Recorded No 03/11/2023 No 03/11/2023 Reliable internet access at home? Not on file 03/11/2023 Device with a working camera? 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 90 tablet 3 06/12/2024 amitriptyline (ELAVIL) 25 MG tablet Take 1 tablet (25 mg total) by mouth nightly at bedtime. 90 tablet 1 08/10/2019 amoxicillin (AMOXIL) 500 MG capsule TAKE 4 CAPS ORALLY 1 HOUR BEFORE THE PROCEDURE. 11/27/2024 apixaban (ELIQUIS) 5 mg tablet Take 5 mg by mouth 2 (two) times a day. atorvastatin (LIPITOR) 20 MG tablet Take 20 mg by mouth daily. carvedilol (COREG) 25 MG tablet Take 1 tablet by mouth 2 (two) times a day. 12/06/2020 chlorthalidone (HYGROTON) 25 MG tablet Take 12.5 mg by mouth daily. 10/15/2020 flecainide (TAMBOCOR) 100 MG tablet Take 100 mg by mouth 2 (two) times a day. 09/26/2020 folic acid (FOLVITE) 1 MG tablet TAKE 1 TABLET DAILY Oral for 90 lisinopril (PRINIVIL,ZESTRIL ) 40 MG tablet Take 40 mg by mouth daily. SYNTHROID 175 mcg tablet Take 1 tablet by mouth daily. 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 On allopurinol therapy Anticoagulant long-term use SEDIMENTATION RATE (ESR) Routine 06/07/2025 8:05 AM EDT 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 On allopurinol therapy Anticoagulant long-term use CBC AND DIFFERENTIAL Routine 06/07/2025 8:05 AM EDT 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 On allopurinol therapy Anticoagulant long-term use C-REACTIVE PROTEIN Routine 06/07/2025 8: 05 AM EDT 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 On allopurinol therapy Anticoagulant long-term use URIC ACID Routine 06/07/2025 8:05 AM EDT 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 On allopurinol therapy Anticoagulant long-term use documented in this encounter Results * (ABNORMAL) Comprehensive metabolic panel (06/07/2025 8:05 AM EDT) SODIUM 133 133 - 146 mmol/L [facility] POTASSIUM 3.8 3.3 - 5.1 mmol/L [facility] CHLORIDE 96 96 - 108 mmol/L [facility] CO2 26 21 - 35 mmol/L [facility] BUN 21(H) 6 - 19 mg/dL [facility] CREATININE 1.20 0.5 - 1.5 mg/dL [facility] GLUCOSE 98 70 - 99 mg/dL [facility] ALBUMIN 4.3 3.9 - 4.8 g/dL [facility] TOTAL PROTEIN 7.5 6.5 - 8.0 g/dL [facility] CALCIUM 10.0 8.4 - 10.3 mg/dL [facility] ALKALINE PHOSPHATASE 107 39 - 117 U/L [facility] TOTAL BILIRUBIN 0.3 0.0 - 1.2 mg/dL [facility] AST 24 0 - 37 U/L [facility] ALT 27 0 - 40 U/L [facility] GLOBULIN 3.2 1 - 4.8 g/dL [facility] EGFR 66 >59 mL/min/1.7 3m2 [facility] Comment:Estimated glomerular filtration rate calculated using the CKD-EPI refit equation. ANION GAP 15 10 - 20 mmol/L [facility] Blood 06/07/2025 8:05 AM EDT 06/07/2025 8:08 AM EDT us Carla Oh MD LAB BLOOD ORDERABLES Fin al Result Performing Organization Address [facility] Co de Phone Number [address] [address] * C-Reactive Protein (06/07/2025 8:05 AM EDT) C REACTIVE PROTEIN <3.0 0.0 - 4.0 mg/L [facility] Blood 06/07/2025 8:05 AM EDT 06/07/2025 8:08 AM EDT us Carla Oh MD LAB BLOOD ORDERABLES Fin al Result Performing Organization Address [facility] Co de Phone Number [address] [address] * Sedimentation rate (ESR) (06/07/2025 8:05 AM EDT) ESR 13 0 - 20 mm/h [facility] Blood 06/07/2025 8:05 AM EDT 06/07/2025 8:08 AM EDT us Carla Oh MD LAB BLOOD ORDERABLES Fin al Result Performing Organization Address [facility] Co de Phone Number [address] [address] * (ABNORMAL) CBC and differential (06/07/2025 8:05 AM EDT) WBC 6.60 4.00 - 11.00 K/uL [facility] RBC 4.40(L) 4.50 - 5.90 M/uL [facility] HGB 13.2(L) 13.5 - 17.5 g/dL [facility] HCT 39.4(L) 41.0 - 53.0 % [facility] PLT 283 150 - 450 K/uL [facility] MCV 89.5 80.0 - 100.0 fL [facility] MCH 30.0 27.0 - 31.0 pg [facility] MCHC 33.5 32.0 - 36.0 g/dL [facility] RDW 12.7 11.5 - 14.5 % [facility] MPV 8.6 8.4 - 12.0 fL [facility] NRBC 0.00 0.00 /100 WBCs [facility] ABSOLUTE NRBC 0.00 0.00 K/uL [facility] DIFF METHOD Auto [facility] NEUTS 71.4 48.0 - 76.0 % [facility] LYMPHS 14.5(L) 18.0 - 41.0 % [facility] MONOS 10.3 4.0 - 11.0 % [facility] EOS 2.7 0.0 - 5.0 % [facility] BASOS 0.5 0.0 - 1.5 % [facility] Granulocytes, immature (%) 0.6 0.0 - 0.9 % [facility] ABSOLUTE NEUTS 4.71 1.92 - 7.60 K/uL [facility] ABSOLUTE LYMPHS 0.96 0.72 - 4.10 K/uL [facility] ABSOLUTE MONOS 0.68 0.16 - 1.10 K/uL [facility] ABSOLUTE EOS 0.18 0.00 - 0.50 K/uL [facility] ABSOLUTE BASOS 0.03 0.00 - 0.15 K/uL [facility] Granulocytes, immature 0.04 0.00 - 0.09 K/uL [facility] Blood 06/07/2025 8:05 AM EDT 06/07/2025 8:08 AM EDT us Carla Oh MD LAB BLOOD ORDERABLES Fin al Result [facility] [address] [place] [address] * Uric acid (06/07/2025 8:05 AM EDT) URIC ACID 5.6 2.4 - 7.0 mg/dL [facility] Blood 06/07/2025 8:05 AM EDT 06/07/2025 8:08 AM EDT us Carla Oh MD LAB BLOOD ORDERABLES Fin al Result [facility] [address] [place] [address] documented in this encounter Visit Diagnoses Diagnosis 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 It is not the complete legal health record.[facility]
--- NOTE | 2025-06-12 11:02 | A.OFFPC_ITS ---
Vital Signs 06/12/25 11:03 Height 6 ft 2 in Weight 264 lb BMI 33.9 BP 130/74 Blood Pressure Location Lt brachial Position Sitting Pulse 72 Pulse Source Pulse Oximeter Temp 97.3 F Temp Source Temporal Artery Scan Pulse Oximetry (%) 96 Oxygen Delivery Method Room Air Intake Visit Reasons: Annual exam Allergies No Known Allergies Allergy (Verified 06/12/25 11:07) Medication List - Last Reconciled 06/12/25 by Ramon Baird MD allopurinol 300 mg PO DAILY alprazolam 1 mg PO DAILY PRN amitriptyline 25 mg PO BEDTIME 90 days amlodipine 10 mg PO DAILY apixaban (Eliquis) 5 mg PO BID atorvastatin 20 mg PO DAILY carvedilol 37.5 mg PO BID chlorthalidone 0.5 tablet daily; flecainide 100 mg PO Q12H folic acid 1 mg PO DAILY levothyroxine 175 mcg PO DAILY lisinopril 40 mg PO DAILY tadalafil 20 mg PO DAILY PRN Tobacco use date assessed: 06/12/25 Fall risk assessment: No Falls in past year Last assessed Fall Risk: 06/12/25 Dental Screening Dental Screen Date: 06/12/25 Did you have a dental visit in the last 12 months?: Yes Did you have a dental problem in the last 6 months where you did not have access to dental care?: No Was dental information given to patient?: Patient has dentist [facility] Medical History CKD (chronic kidney disease) History of cardioversion BPH (benign prostatic hyperplasia) Erectile dysfunction Obstructive sleep apnea Anxiety Aortic dilatation Obesity (BMI 30-39.9) Lumbar spondylosis Interstitial cystitis BPH (benign prostatic hyperplasia) Impaired glucose tolerance Hypercholesterolemia Hypertension Gout Hypothyroid Paroxysmal atrial fibrillation Surgical History Hx of colonoscopy (2019) Hx of shoulder surgery Hx of total knee replacement History of prostatectomy History of ankle surgery Family History Father Stroke Mother Alzheimers disease Social History (Updated 06/12/25 @ 11:46 by Ramon Baird MD) Household Members: Spouse Housing: House Are you a primary managed care specialist to a significant other at home: No Do you presently have visiting nurse or other home services: No Alcohol intake: current Alcohol intake frequency: holidays/special occasions only Comment: 2 drinks a month 1-2 drinks Patient Tobacco Use Status: Never used Tobacco Tobacco use type: Cigarette e-Cigarette/Vaping Use: Never Used Second Hand Smoke Exposure: No service: No Current occupational status: employed Cognitive needs: No Hearing needs: No Vision needs: Yes Questionnaire PHQ-9 Over the last 2 weeks, how often have you been bothered by any of the following problems? 1. Little interest or pleasure in doing things: not at all 2. Feeling down, depressed, or hopeless: not at all 3. Trouble falling or staying asleep, or sleeping too much: not at all 4. Feeling tired or having little energy: not at all 5. Poor appetite or overeating: not at all 6. Feeling bad about yourself - or that you are a failure or have let yourself or your family down: not at all 7. Trouble concentrating on things, such as reading the newspaper or watching television: not at all 8. Moving or speaking so slowly that other people could have noticed. Or the opposite - being so fidgety or restless that you have been moving around a lot more than usual: not at all 9. Thoughts that you would be better off or of hurting yourself in some way: not at all Total score: 0 Depression Screening Interpretation: Negative Depression Screening Done: Yes Source: Developed by Drs. Scott Barnes, Cami Heart, Jaren Chandra and colleagues, with an educational travon from [employer]. Thrive Questionnaire Date Thrive assessed: 02/26/25 I am a: Patient What is your living situation today?: I have a steady place to live Within the past 12 months, did the food you bought not last and you didn't have the money to get more?: Never true Within the past 12 months, did you worry whether your food would run out before you got money to buy more?: Never true Do you have trouble paying for medicines?: No Do you have trouble getting transportation to medical appointments?: No Do you have trouble paying your heating and electricity bill?: No Do you have trouble taking care of your child, family member or friend?: No Do you have trouble with day-to-day activities such as bathing, preparing meals, shopping, managing finances, etc.?: No Are you currently unemployed and looking for a job?: No Are you interested in more education?: No Please select the resources that you would like help with: None Currently or been in a relationship where the following occur: No concerns repo rted THRIVE Score: 0 AUDIT C Alcohol Use Questionnaire (AUDIT-C) 1. How often do you have a drink containing alcohol?: 2-4 times a month 2. How many drinks containing alcohol do you have on a typical day when you are drinking?: 1 or 2 3. How often do you have six or more drinks on one occasion?: Never Total Score: 2 LUISA-7 AMB Questionnaire LUISA-7 Date LUISA - 7 assessed: 02/28/25 Feeling nervous, anxious, or on edge: 0 = Not at all Not being able to stop or control worryin = Not at all Worrying too much about different things: 0 = Not at all Trouble relaxin = Not at all Being so restless that it is hard to sit still: 0 = Not at all Becoming easily annoyed or irritable: 0 = Not at all Feeling afraid as if something awful might happen: 0 = Not at all Total LUISA-7 score (0-4 normal; 5-9 mild; 10-14 moderate; 15-21 severe): 0 Source: Developed by Drs. Scott Barnes, Cami Heart, Jaren Chandra and colleagues, with an educational travon from [employer]. Review of Systems Const Denies poor appetite and Denies weakness Eyes Denies no additional complaints ENT Reports Normal hearing present, Denies dizziness, Denies nasal congestion, Denies tinnitus and Denies sore throat Card Denies chest pain, Denies syncope, Denies rapid heart rate and Denies dyspnea Resp Denies cough and Denies dyspnea GI Denies change in stool character, Reports constipation, Denies diarrhea, Denies nausea and Denies vomiting Denies dysuria and Denies urinary frequency Neuro Reports Normal hearing present, Denies confusion, Denies dizziness, Denies syncope and Denies weakness Psych Denies confusion Physical exam (Primary Care) Vital Signs: Last Vital Signs Temp 97.3 F 06/12/25 11:03 Pulse 72 06/12/25 11:03 BP 130/74 06/12/25 11:03 Pulse Ox 96 06/12/25 11:03 Oxygen Delivery Method Room Air 06/12/25 11:03 BMI result Body Mass Index 33.9 Tobacco/Smoking Status: Tobacco use Status Tobacco use date assessed 06/12/25 06/12/25 11:08 Patient Tobacco Use Status Never used Tobacco 06/12/25 11:46 Tobacco use type Cigarette 06/12/25 11:46 e-Cigarette/Vaping Use Never Used 06/12/25 11:46 PHQ-9: PHQ-9 Score PHQ-9: Total score 0 06/12/25 11:39 Depression Screening Interpretation: Negative Thrive Assessment: Date of Thrive Assessment Date Thrive assessed 02/26/25 06/12/25 11:08 Currently or been in a relationship where the following occur: No concerns reported Const General: No confusion Orientation/consciousness: No confusion HENMT Head: Yes normocephalic Ears: external ears normal and TM's normal bilaterally Face and sinus: Yes normal facial exam Mouth: moist mucous membranes Throat: Yes tonsils normal Eyes Conjunctivae: conjunctivae normal Pupils: Equal, round and reactive pupils present and Pupil accommodation reflex normal Direct Ophthalmoscopy: normal light reflex Neck Neck: No lymphadenopathy Thyroid: Thyroid normal Chest Chest palpation & inspection: normal inspection of the chest Resp Effort & Inspection: normal respiratory effort and no audible wheezes Auscultation: clear to auscultation bilaterally, no crackles, no wheezes and lung sounds not diminished Cardio Rate: regular rate Rhythm: regular rhythm Peripheral pulses: radial pulses present and dorsalis pedis present GI Other: colon test pending Palpation (GI): no masses Auscultation: normal bowel sounds and normoactive bowel sounds Rectal Exam - Male: Yes deferred Male General Exam: Yes normal external exam Skin General skin exam: no rashes or lesions noted Rashes: no rashes Neuro General: No confusion Cranial nerves: Yes Equal, round and reactive pupils present and Yes Normal hearing present Cognition (Neuro): normal cognition Gait exam (Neuro): Normal gait present Motor exam (neuro): 5/5 motor strength present throughout Deep tendon reflexes (DTR's): Right brachioradialis reflex intensity grade: 2+, Left brachioradialis reflex intensity grade: 2+, Right patellar reflex intensity grade: 2+ and Left patellar reflex intensity grade: 2+ Extrem General: No edema Coding Level of Care Code Est Pt Prev Care >65y(02067) Diagnoses Annual physical exam Z00.00 Paroxysmal atrial fibrillation I48.0 Essential hypertension I10 Hypertension type: essential hypertension Hypercholesterolemia E78.00 Impaired glucose tolerance R73.02 Acquired hypothyroidism E03.9 Hypothyroidism type: acquired Obesity (BMI 30-39.9) E66.9 Benign prostatic hyperplasia with urinary frequency N40.1; R35.0 Lower urinary tract symptom detail: urinary frequency Lower urinary tract symptom presence: symptoms present Obstructive sleep apnea G47.33 Folliculitis of scalp L02.821 Hearing difficulty H91.90 Anemia, unspecified type D64.9 Anemia type: unspecified type Assessment & Plan Assessment & Plan (1) Annual physical exam: Code(s): Z00.00 - Encounter for general adult medical examination without abnormal findings Category: Medical Plan: Patient is advised to eat healthy, keep well hydrated, keep active and have adequate sleep. (2) Paroxysmal atrial fibrillation: Comment: Fourteen day event monitor August 2020 ablation, [place] February 2019 cardioversion August 2019 Nuclear scan myocardial normal my 56% September 2019March 2020 echo EF 65-70% ascending aorta 3.9 cm, March 2023 Code(s): I48.0 - Paroxysmal atrial fibrillation Category: Medical Plan: Continue with carvedilol flecainide and Eliquis (3) Hypertension: Code(s): I10 - Essential (primary) hypertension Category: Medical Qualifiers: Hypertension type: essential hypertension Qualified Code(s): I10 - Essential (primary) hypertension Plan: Continue with blood pressure medication. Decrease salt intake and exercise patient takes amlodipine 10 mg once a day carvedilol 37.5 mg twice a day chlorthalidone lisinopril 40 mg once a day (4) Hypercholesterolemia: Code(s): E78.00 - Pure hypercholesterolemia, unspecified Category: Medical Plan: Avoid fried foods, chicken skin, eggs, butter margarine, pastries and meat. Be it pork or beef they have a lot of cholesterol patient is on atorvastatin 20 mg once a day (5) Impaired glucose tolerance: Code(s): R73.02 - Impaired glucose tolerance (oral) Category: Medical Plan: Decrease the amount of carbohydrate intake, pasta, bread, rice and potatoes are all sugar and that is aside from all the sweet stuff, remember that fruits are good but they are Sweet also. (6) Hypothyroid: Code(s): E03.9 - Hypothyroidism, unspecified Category: Medical Qualifiers: Hypothyroidism type: acquired Qualified Code(s): E03.9 - Hypothyroidism, unspecified Plan: Continue with thyroid medication (7) Obesity (BMI 30-39.9): Code(s): E66.9 - Obesity, unspecified Category: Medical Plan: Continue with diet and exercise (8) BPH (benign prostatic hyperplasia): Code(s): N40.0 - Benign prostatic hyperplasia without lower urinary tract symptoms Category: Medical Qualifiers: Lower urinary tract symptom detail: urinary frequency Lower urinary tract symptom presence: symptoms present Qualified Code(s): N40.1 - Benign prostatic hyperplasia with lower urinary tract symptoms; R35.0 - Frequency of micturition Plan: Stable (9) Obstructive sleep apnea: Comment: With CPAP Code(s): G47.33 - Obstructive sleep apnea (adult) (pediatric) Category: Medical Plan: Continue with using the CPAP more than 4 hours a night and benefits from this (10) Folliculitis of scalp: Code(s): L02.821 - Furuncle of head [any part, except face] Category: Medical (11) Hearing difficulty: Code(s): H91.90 - Unspecified hearing loss, unspecified ear Category: Medical (12) Anemia: Code(s): D64.9 - Anemia, unspecified Category: Medical Qualifiers: Anemia type: unspecified type Qualified Code(s): D64.9 - Anemia, unspecified Plan History of Present Illness The patient is a 65-year-old male presenting for an annual physical examination and management of chronic conditions. The patient has a history of atrial fibrillation, managed with carvedilol, flecainide, and Eliquis. Hypertension is controlled with amlodipine, carvedilol, chlorthalidone, and lisinopril. The patient has hypothyroidism, treated with thyroid medication, and hypercholesterolemia managed with atorvastatin. Impaired glucose tolerance is noted, with lifestyle modifications including diet and exercise recommended. The patient has benign prostatic hyperplasia and obstructive sleep apnea, the latter managed with CPAP therapy. Anxiety disorder is managed with alprazolam as needed and amitriptyline at bedtime. Chronic kidney disease stage 1 is monitored with regular renal function tests, with creatinine levels at 1.2 mg/dL. The patient is advised to avoid NSAIDs to prevent further kidney damage. The patient has a history of cholelithiasis and tubular adenoma of the colon, with the last colonoscopy performed in September 2024. Mild anemia is noted with hemoglobin levels at 13.2 g/dL, requiring follow-up. The patient reports recurrent skin infections treated with topical antibiotic gel and is considering oral antibiotics if the condition persists. Plantar fasciitis was previously present but has resolved. Health Maintenance - Vaccinations: Shingles, tetanus, and pneumonia vaccinations are up to date. - Screening: Colonoscopy last performed in September 2024, next scan scheduled with gastroenterology. - Lifestyle: Encouraged to maintain diet and exercise regimen for weight management and glucose control. - Follow-up: Blood work scheduled in six months to monitor kidney function and anemia. Social History - Alcohol: Consumes alcohol twice a month, typically one to two drinks per occasion. - Tobacco and Drugs: Denies use of tobacco and recreational drugs. - Exercise: Engages in regular physical activity as part of lifestyle modifications. Review of Systems - General: Reports feeling tired occasionally, denies fever. - Cardiovascular: Denies chest pain, orthopnea, or syncope. - Respiratory: Denies dyspnea or wheezing. - Gastrointestinal: Denies nausea, vomiting, or abdominal pain. - Neurological: Reports dizziness when bending over in hot weather, denies headaches or balance issues. - Genitourinary: Reports nocturia twice per night, denies dysuria or hematuria. - Dermatological: Reports recurrent skin infections. Physical Exam General: Cooperative, healthy appearing, comfortable, no acute distress and well developed Orientation: Patient oriented x3 Limitations: No limitations Head: Normal to inspection Ears: Hearing not as good as it used to be, patient has been using drops for potential wax buildup Nose: Normal external nose present Face and sinus: Normal facial exam Eyes: Appearance normal, both eyes and all related structures Neck: Normal visual inspection and Yes full ROM Respiratory: Normal respiratory effort and able to speak in complete sentences. Clear to auscultation bilaterally Cardiovascular: Regular rate and rhythm. Normal S1 and S2 GI: Normal to inspection. Soft to palpation and nontender Skin: Small skin infections noted on the head, patient using antibiotic ointment Neuro: Patient oriented x3 Extremities: Normal to inspection Results - Labs: Hemoglobin 13.2 g/dL indicating mild anemia, creatinine 1.2 mg/dL indicating stable renal function. - Cholesterol: LDL 88 mg/dL, triglycerides 163 mg/dL. - Other: Normal electrolytes, liver function, PSA, vitamin B12, folic acid, and thyroid levels. Plan Patient was informed and verbally consented to the use of an ambient scribe for clinic note documentation during this visit. 1. Atrial Fibrillation The patient will continue with carvedilol, flecainide, and Eliquis for management of atrial fibrillation. 2. Hypertension Hypertension management includes amlodipine, carvedilol, chlorthalidone, and lisinopril. 3. Hypothyroidism The patient will continue with current thyroid medication. 4. Hypercholesterolemia The patient will continue atorvastatin for hypercholesterolemia management. 5. Impaired Glucose Tolerance Lifestyle modifications including diet and exercise are recommended for impaired glucose tolerance. 6. Benign Prostatic Hyperplasia The patient will continue monitoring symptoms of benign prostatic hyperplasia. 7. Obstructive Sleep Apnea The patient is advised to continue using CPAP therapy for obstructive sleep apnea. 8. Anxiety Disorder Anxiety disorder is managed with alprazolam as needed and amitriptyline at bedtime. 9. Chronic Kidney Disease Stage 1 Chronic kidney disease stage 1 will be monitored with regular renal function tests, and the patient is advised to avoid NSAIDs. 10. Cholelithiasis The patient will continue monitoring for symptoms of cholelithiasis. 11. History Of Tubular Adenoma Of The Colon The patient is scheduled for a follow-up scan with gastroenterology. 12. Mild Anemia Mild anemia will be monitored with follow-up blood work in six months. 13. Skin Infections The patient is advised to continue using topical antibiotic gel and consider oral antibiotics if infections persist. Discussion Notes During the visit, I discussed the management of atrial fibrillation with the patient, emphasizing the importance of continuing carvedilol, flecainide, and Eliquis. We reviewed the patient's hypertension management plan, which includes amlodipine, carvedilol, chlorthalidone, and lisinopril. I advised the patient to maintain their current thyroid medication and atorvastatin for hypothyroidism and hypercholesterolemia, respectively. Lifestyle modifications were recommended for impaired glucose tolerance, and the patient was encouraged to continue using CPAP for obstructive sleep apnea. We discussed the management of anxiety disorder with alprazolam and amitriptyline. I advised the patient to avoid NSAIDs to protect kidney function and to monitor mild anemia with follow-up blood work in six months. The patient was informed about the option of oral antibiotics for recurrent skin infections if topical treatment is insufficient. We also discussed the importance of regular screenings and vaccinations, including the upcoming colonoscopy and maintaining up-to-date vaccinations. Patient Instructions - Continue taking carvedilol, flecainide, and Eliquis as prescribed. - Maintain current blood pressure medications: amlodipine, carvedilol, chlorthalidone, and lisinopril. - Continue thyroid medication and atorvastatin as directed. - Follow lifestyle modifications for glucose control, including diet and exercise. - Use CPAP therapy consistently for sleep apnea. - Use topical antibiotic gel for skin infections; consider oral antibiotics if n eeded. - Avoid NSAIDs to protect kidney function. - Schedule follow-up blood work in six months. - Stay up to date with vaccinations and screenings, including the upcoming colonoscopy. Orders: Orders Comprehensive Met. Panel 6 Months D64.9 - Anemia, unspecified Free T4 (Free Thyroxine) 6 Months D64.9 - Anemia, unspecified Thyroid Stimulating Hormone 6 Months D64.9 - Anemia, unspecified Hemoglobin A1c 6 Months D64.9 - Anemia, unspecified Complete Blood Count Auto Diff 6 Months D64.9 - Anemia, unspecified Ferritin 6 Months D64.9 - Anemia, unspecified Vitamin B12 and Folate 6 Months D64.9 - Anemia, unspecified IRON PROFILE 6 Months D64.9 - Anemia, unspecified Reticulocyte Count 6 Months D64.9 - Anemia, unspecified Lipid Panel 6 Months D64.9 - Anemia, unspecified, E78.00 - Pure hypercholesterolemia, unspecified Prostate Specific Antigen Scr 6 Months D64.9 - Anemia, unspecified Referrals Speech and Hearing Referral H91.90 - Unspecified hearing loss, unspecified ear Medications: New doxycycline hyclate 100 mg PO BID 14 caps 0RF 7 days L02.821 - Furuncle of head [any part, except face] clindamycin phosphate 1% 1 appl topical BEDTIME 60 grams 0RF L02.821 - Furuncle of head [any part, except face]
[2025-06-12 11:03] VITALS: BP 130/74; PULSE 72; TEMP 36.3; O2SAT 96; BMI 33.9
--- OUTSIDE RECORDS SUMMARY | 2025-06-12 11:44 | XMS_ITS | Clinical Summary ---
Author Organization [address] [place] [address] Address [address] [place] [address] Phone Care Team Providers Care Online Banking Specialist Name Role Phone Ramon Baird MD Primary Care Provider [phone] Allergies No known active allergies Medications amitriptyline (ELAVIL) 25 mg tablet Take 1 tablet by mouth daily. Active allopurinoL (ZYLOPRIM) 100 mg tablet Take 3 (three) 100 mg tablets by mouth daily. Active atorvastatin (LIPITOR) 20 mg tablet Take 1 tablet by mouth daily. Active levothyroxine (SYNTHROID, LEVOTHROID) 175 mcg tablet Take 1 tablet by mouth daily. Active lisinopril (PRINIVIL,ZEST RIL) 40 mg tablet Take 1 tablet by mouth daily. Active folic acid (FOLVITE) 1 mg tablet Take 1 tablet (1 mg total) by mouth 1 (one) time each day. Active amLODIPine (NORVASC) 5 mg tablet Take 1 tablet (5 mg total) by mouth 1 (one) time each day. 30 each 11 5 12/29/19 26 Active chlorthalidone (HYGROTON) 25 mg tablet TAKE 1/2 TABLET DAILY 45 tablet 2 5 Active carvediloL (COREG) 25 mg tablet TAKE 1 AND 1/2 TABLETS TWICE DAILY WITH MEALS 270 tablet 3 5 Active flecainide (TAMBOCOR) 100 mg tablet TAKE 1 TABLET TWICE A DAY 180 tablet 3 5 Active apixaban (Eliquis) 5 mg tablet TAKE 1 TABLET TWICE A DAY 180 tablet 3 5 Active carvediloL (COREG) 25 mg tablet Take 1.5 Tablets by mouth 2 times daily (with meals). 4 05/16/20 25 Discontinued flecainide (TAMBOCOR) 100 mg tablet Take 1 Tablet by mouth 2 times daily. 3 05/16/20 25 Discontinued Eliquis 5 mg tablet TAKE 1 TABLET TWICE A DAY 180 tablet 1 5 06/05/20 25 Discontinued Active Problems Problem Noted Date Diagnosed Date Ascending aorta dilation (CMS/HCC V24) 3 Overview (07/31/2024): Last Assessment & [...] in 2013, with increased frequency requiring cardioversion 3 began flecainide and underwent pulmonary vein [...] EDT): Status post 2 ablation procedures almost [id number]. Unfortunately, he had recurrent A-fib fairly quickly [...] follow-up next month with the sleep medicine. Medical History Medical History Date Comments Osteoarthritis [...] Done Comments Colorectal Cancer Screening: Colonoscopy 09/26/2022 Hepatitis C Screening 09/26/2022 Medicare Annual Wellness Visit 09/26/2022 Social Influencers of Health Screening 09/26/2022 Falls Risk Assessment 2023 COVID-19 Vaccine ( season) 2024 09/06/2023, 07/10/2022, 07/29/2021, Additional history exists Depression Screening 10/18/2024 Influenza Vaccine (#1) 2025 , 08/11/2023, 07/10/2022, Additional history exists Hypertension/CHF/CAD Annual BMP Blood Test 12/11/2025 12/11/2024, 06/07/2024, 06/07/2024, Additional history exists Cholesterol Screening (Lipid Panel) 11/14/2026 11/14/2021, 11/14/2021 DTaP,Tdap,and Td Vaccines (2 - Td or Tdap) 05/21/2032 05/21/2022 RSV Immunization Adult Patients (1 - 1-dose 75+ series) 2033 Zoster Vaccines Completed 04/18/2020, 09/09/2019 Pneumococcal Vaccine: 50+ Years Completed 05/25/2023, 05/07/2016 HIB Vaccines Aged Out No longer eligi [...] Procedure Name Priority Date/Time Associated Diagnosis Comments ANNUAL BMP BLOOD TEST Routine 06/07/2024 LIPID PANEL Routine 11/14/2021 from Last 3 Months or Most Recently Relevant to Health Maintenance Results * Annual BMP Blood Test (06/07/2024) Pathologist [facility] Annual BMP Blood Test abstracted Historical Provider HEALTH MAINTENANCE Final Result * Lipid panel (11/14/2021) LDL/HDL Ratio 0 Comment:no interpretation Triglycerides 0 mg/dL Comment:no interpretation Cholesterol 0 mg/dL Comment:no interpretation HDL 0 mg/dL Comment:no interpretation LDL Cholesterol 0 mg/dL Comment:no interpretation Blood Venous blood specimen / Unknown Historical Provider LAB BLOOD ORDERABLES Hilary l Result from Last 3 Months or Most Recently Relevant to Health Maintenance Insurance MEDICARE [facility] Care Teams Online Banking Specialist Relationship Specialty Start Date End Date Ramon Baird MD [address] [place] [address] [address] [facility] [place] [address] PCP - General Internal Medicine 09/08/20
--- OUTSIDE RECORDS SUMMARY | 2025-06-12 11:44 | XMS_ITS | Clinical Summary ---
Author Organization [facility] Address [address] [address] Phone Care Team Providers Care Director Of Diversity And Inclusion Name Role Phone Ramon Baird MD Primary Care Provider [phone] Allergies No known active allergies Medications atorvastatin (LIPITOR) 20 MG tablet Take 20 mg by mouth daily. Active lisinopril (PRINIVIL,ZESTR IL) 40 MG tablet Take 40 mg by mouth daily. Active apixaban (ELIQUIS) 5 mg tablet Take 5 mg by mouth 2 (two) times a day. Active amitriptyline (ELAVIL) 25 MG tablet Take 1 tablet (25 mg total) by mouth nightly at bedtime. 90 tablet 1 08/10/2019 Active carvedilol (COREG) 25 MG tablet Take 1 tablet by mouth 2 (two) times a day. 12/06/2020 Active chlorthalidone (HYGROTON) 25 MG tablet Take 12.5 mg by mouth daily. 10/15/2020 Active flecainide (TAMBOCOR) 100 MG tablet Take 100 mg by mouth 2 (two) times a day. 09/26/2020 Active SYNTHROID 175 mcg tablet Take 1 tablet by mouth daily. 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 90 tablet 3 06/12/2024 Active folic acid (FOLVITE) 1 MG tablet TAKE 1 TABLET DAILY Oral for 90 Active amoxicillin (AMOXIL) 500 MG capsule TAKE 4 CAPS ORALLY 1 HOUR BEFORE THE PROCEDURE. 11/27/2024 Active Active Problems Problem Noted Date Diagnosed Date Class 2 severe obesity due t o excess calories with serious comorbidity and body mass index (BMI) of 35.0 to 35.9 in adult 02/10/2024 Assessment & Plan (12/13/2024 8:45 AM EST): Continue diligent portion control specially in view of gaining 5 pounds from 267 on 06/12/2020 up to 272 today. Limit concentrated sugars, saturated fats and calories in the diet. Keep well-hydrated. If unable to achieve expected goal consider formal dietary/nutritional support. Assessment & Plan (02/10/2024 8:59 AM EDT): Continue diligent portion control to bring his body weight as close as possible to ideal range for his height. Limit concentrated sugars, saturated fats and calories in the diet. Keep well-hydrated. If unable to achieve expected goal consider formal dietary/nutritional support. Anticoagulant long-term use 07/16/202306/19 Assessment & Plan (12/13/2024 8:19 AM EST): Avoid falls, injuries and cuts. Monitor for excessive bruising and bleeding. Assessment & Plan (06/12/2024 8:40 AM EDT): Avoid falls, injuries and cuts. Monitor for excessive bruising and bleeding. Class 1 obesity 07/16/2023 07/16/2023 Gout 07/16/2023 07/16/2023 Hypothyroid 07/16/2023 07/16/2023 Interstitial cystitis 07/16/2023 07/16/2023 Paroxysmal atrial fibrillation 07/16/2023 0 07/16/2023 Rotator cuff arthropathy, right 11/27/2021 Assessment & Plan (06/16/2022 7:20 PM EDT): Use warm pack or warm shower prior to gentle, regular exercise as printed with pictures and detailed instructions. Avoid repetitive reaching above the head, heavy lifting, pulling. If not better or worse may need to consider formal PT. He may benefit from topical cream such as Arnica, Biofreeze, Voltaren versus medicated patches such as Salonpas or IcyHot patch. I provided him with couple of Salonpas samples: LOT: [id number] EXP: 03/10 Assessment & Plan (11/29/2021 8:39 PM EST): Use warm pack or warm shower prior to gentle, regular exercise as printed with pictures and detailed instructions. Avoid repetitive reaching above the head, heavy lifting, pulling. If not better or worse may need to consider formal PT. He may benefit from topical cream such as Arnica, Biofreeze, Voltaren versus medicated patches such as Salonpas or IcyHot patch. Right ankle swelling 04/21/2018 Hyperlipidemia 10/21/2017 Hypertension 10/21/2017 Idiopathic chronic gout of right ankle without t ophus 10/21/2017 Assessment & Plan (12/13/2024 8:18 AM EST): Due to previously increasing serum uric acid from 5.6 in July 2023 up to 5.9 on 02/07/2024 I encouraged Scott to make sure that he is keeping himself well- hydrated and continues low purine diet in addition to taking daily allopurinol. I offered him carefully increasing the dose of allopurinol but he prefers to maximize his attention to hydration and low purine diet adherence before increasing allopurinol dose. Most recent checkup confirms improved uricemia with diligent daily allopurinol intake, proper hydration and low purine diet. Continue daily allopurinol as prescribed. Get labs monitoring safety and efficacy of allopurinol therapy prior to next visit in 6 months. Strategy for acute gouty attack reviewed and reminded to avoid NSAIDs while on Eliquis. Switch ibuprofen to celebrex only if absolutely needed due to chronic anticoagulation with Eliquis Proper hydration. Follow low purine, low calories and low-cholesterol diet. Encouraged to be careful around holidays with richer diet, gravies in addition to alcohol. Avoid falls and injuries. Assessment & Plan (06/12/2024 8:50 AM EDT): Due to previously increasing serum uric acid from 5.6 in July 2023 up to 5.9 on 02/07/2024 I encouraged Scott to make sure that he is keeping himself well- hydrated and continues low purine diet in addition to taking daily allopurinol. I offered him carefully increasing the dose of allopurinol but he prefers to maximize his attention to hydration and low purine diet adherence before increasing allopurinol dose. Most recent checkup confirms improved uricemia with diligent daily allopurinol intake, proper hydration and low purine diet. Continue daily allopurinol as prescribed. Get labs monitoring safety and efficacy of allopurinol therapy prior to next visit in 6 months. Strategy for acute gouty attack reviewed and reminded to avoid NSAIDs while on Eliquis. Switch ibuprofen to celebrex only if absolutely needed due to chronic anticoagulation with Eliquis Proper hydration. Follow low purine, low calories and low-cholesterol diet. Encouraged to be careful around holidays with richer diet, gravies in addition to alcohol. Avoid falls and injuries. Assessment & Plan (02/10/2024 8:59 AM EDT): Due to increasing serum uric acid from 5.6 in July 2023 up to 5.9 on 02/07/2024 I encouraged Scott to make sure that he is keeping himself well-hydrated and continues low purine diet in addition to taking daily allopurinol. I offered him carefully increasing the dose of allopurinol but he prefers to maximize his attention to hydration and low purine diet adherence before increasing allopurinol dose. Continue daily allopurinol as prescribed. Get labs monitoring safety and efficacy of allopurinol therapy prior to next visit in 4 months. Strategy for acute gouty attack reviewed and reminded to avoid NSAIDs while on Eliquis. Switch ibuprofen to celebrex only if absolutely needed due to chronic anticoagulation with Eliquis Proper hydration. Follow low purine, low calories and low-cholesterol diet. Encouraged to be careful around holidays with richer diet, gravies in addition to alcohol. Avoid falls and injuries. Assessment & Plan (08/11/2023 9:30 AM EDT): Continue daily allopurinol as prescribed. Get labs monitoring safety and efficacy of allopurinol therapy prior to next visit in 6 months. Strategy for acute gouty attack reviewed and reminded to avoid NSAIDs while on Eliquis. Switch ibuprofen to celebrex only if absolutely needed due to chronic anticoagulation with Eliquis Proper hydration. Follow low purine, low calories and low-cholesterol diet. Encouraged to be careful around holidays with richer diet, gravies in addition to alcohol. Avoid falls and injuries. Assessment & Plan (01/27/2023 9:37 AM EDT): Continue daily allopurinol as prescribed. Get labs monitoring safety and efficacy of allopurinol therapy prior to next visit in 6 months. Strategy for acute gouty attack reviewed and reminded to avoid NSAIDs while on Eliquis. Switch ibuprofen to celebrex only if absolutely needed due to chronic anticoagulation with Eliquis Proper hydration. Follow low purine, low calories and low-cholesterol diet. Assessment & Plan (06/16/2022 7:18 PM EDT): Continue daily allopurinol as prescribed. Get labs monitoring safety and efficacy of allopurinol therapy prior to next visit in 6 months. Strategy for acute gouty attack reviewed and reminded to avoid NSAIDs while on Eliquis. Switch ibuprofen to celebrex only if absolutely needed due to chronic anticoagulation with Eliquis Proper hydration. Follow low purine diet. Assessment & Plan (11/29/2021 8:38 PM EST): Get labs monitoring safety and efficacy of allopurinol therapy day and prior to next visit in 6 months. Strategy for acute gouty attack reviewed and reminded to avoid NSAIDs while on Eliquis. Switch ibuprofen to celebrex only if absolutely needed due to chronic anticoagulation with Eliquis Continue daily allopurinol as prescribed. Proper hydration. Follow low purine diet. Assessment & Plan (03/18/2021 5:27 PM EDT): Get labs monitoring safety and efficacy of allopurinol therapy prior to next visit in 2 months. Strategy for acute gouty attack reviewed and reminded to avoid NSAIDs while on Eliquis. Switch ibuprofen to celebrex due to chronic anticoagulation with Eliquis Continue daily allopurinol as prescribed. Proper hydration. Follow low purine diet. Assessment & Plan (12/17/2020 5:58 PM EST): Get labs monitoring safety and efficacy of allopurinol therapy prior to next visit in 3 months. Strategy for acute gouty attack reviewed and reminded to avoid NSAIDs while on Eliquis. Switch ibuprofen to celebrex due to chronic anticoagulation with Eliquis Continue daily allopurinol as prescribed. Proper hydration. Follow low purine diet. Assessment & Plan (06/09/2020 9:09 PM EDT): Get labs monitoring safety and efficacy of allopurinol therapy today and prior to next visit in 6 months. Strategy for acute gouty attack reviewed and reminded to avoid NSAIDs while on Eliquis. Switch ibuprofen to celebrex due to chronic anticoagulation with Eliquis Continue daily allopurinol as prescribed. Proper hydration. Follow low purine diet. Get yearly influenza vaccination July 2020. Assessment & Plan (12/07/2019 8:52 AM EST): Get labs monitoring safety and efficacy of allopurinol therapy today and prior to next visit in 6 months. Strategy for acute gouty attack reviewed and reminded to avoid NSAIDs while on Eliquis. Switch ibuprofen to celebrex due to chronic anticoagulation with Eliquis Continue daily allopurinol as prescribed. Proper hydration. Follow low purine diet. Assessment & Plan (06/20/2019 7:02 PM EDT): Get labs monitoring safety and efficacy of allopurinol therapy today and prior to next visit in 6 months. Strategy for acute gouty attack reviewed and reminded to avoid NSAIDs while on Eliquis. Switch ibuprofen to celebrex due to chronic anticoagulation with Eliquis Continue daily allopurinol as prescribed. Proper hydration. Follow low purine diet. Get the yearly influenza vaccination by mid July 2019. Assessment & Plan (12/11/2018 8:35 PM EST): New set of lab tests requested today Strategy for acute gouty attack reviewed and reminded to avoid NSAIDs while on Eliquis. Switch ibuprofen to celebrex due to chronic anticoagulation with Eliquis Continue daily allopurinol as prescribed. Proper hydration. Follow low purine diet. Primary osteoarthritis involving multiple joints 10/21/2017 Assessment & Plan (12/13/2024 8:18 AM EST): Continue diligent joint protection, energy conservation. Avoid falls, injuries, overuse. Work on reducing body weight closer to ideal range for his height. Topical cream versus patch 2-3 times daily or at least at bedtime 3 weeks as needed. Use splints, assistive devices as needed. Call if problems or questions. Assessment & Plan (06/12/2024 8:40 AM EDT): Continue diligent joint protection, energy conservation. Avoid falls, injuries, overuse. Work on reducing body weight closer to ideal range for his height. Topical cream versus patch 2-3 times daily or at least at bedtime 3 weeks as needed. Use splints, assistive devices as needed. Call if problems or questions. Assessment & Plan (02/10/2024 8:58 AM EDT): Continue diligent joint protection, energy conservation. Avoid falls, injuries, overuse. Work on reducing body weight closer to ideal range for his height. Topical cream versus patch 2-3 times daily or at least at bedtime 3 weeks as needed. Use splints, assistive devices as needed. Call if problems or questions. Assessment & Plan (08/11/2023 8:58 AM EDT): Joint protection, energy conservation. Avoid falls, injuries, overuse. Work on reducing body weight closer to ideal range for his height. Topical cream versus patch 2-3 times daily or at least at bedtime 3 weeks as needed. Use splints, assistive devices as needed. Call if problems or questions. Assessment & Plan (01/27/2023 9:30 AM EDT): Joint protection, energy conservation. Avoid falls, injuries, overuse. Work on reducing body weight closer to ideal range for his height. Topical cream versus patch 2-3 times daily or at least at bedtime 3 weeks as needed. Use splints, assistive devices as needed. Call if problems or questions. Assessment & Plan (05/28/2022 2:38 PM EDT): Joint protection, energy conservation. Avoid falls, injuries, overuse. Work on reducing body weight closer to ideal range for his height. Topical cream versus patch 2-3 times daily or at least at bedtime 3 weeks as needed. Use splints, assistive devices as needed. Call if problems or questions. Assessment & Plan (11/27/2021 3:37 PM EST): Joint protection, energy conservation. Avoid falls, injuries, overuse. Work on reducing body weight closer to ideal range for his height. Topical cream versus patch 2-3 times daily or at least at bedtime 3 weeks as needed. Use splints, assistive devices as needed. Call if problems or questions. Assessment & Plan (03/13/2021 3:48 PM EDT): Joint protection, energy conservation. Avoid falls, injuries, overuse. Work on reducing body weight closer to ideal range for his height. Topical cream versus patch 2-3 times daily or at least at bedtime 3 weeks as needed. Use splints, assistive devices as needed. Call if problems or questions. Assessment & Plan (12/12/2020 9:06 AM EST): Joint protection, energy conservation. Avoid falls, injuries, overuse. Work on reducing body weight closer to ideal range for his height. Topical cream versus patch 2-3 times daily or at least at bedtime 3 weeks as needed. Use splints, assistive devices as needed. Call if problems or questions. Assessment & Plan (06/09/2020 9:05 PM EDT): Joint protection, energy conservation. Avoid falls, injuries, overuse. Work on reducing body weight closer to ideal range for his height. Topical cream versus patch 2-3 times daily or at least at bedtime 3 weeks as needed. Use splints, assistive devices as needed. Call if problems or questions. Assessment & Plan (12/07/2019 8:52 AM EST): Joint protection, energy conservation. Avoid falls, injuries, overuse. Work on reducing body weight closer to ideal range for his height. Topical cream versus patch 2-3 times daily or at least at bedtime 3 weeks as needed. Assessment & Plan (06/20/2019 7:03 PM EDT): Joint protection, energy conservation. Avoid falls, injuries, overuse. Work on reducing body weight closer to ideal range for his height. Topical cream versus patch 2-3 times daily or at least at bedtime 3 weeks as needed. Assessment & Plan (12/11/2018 8:36 PM EST): Joint protection, energy conservation. Avoid falls, injuries, overuse. Work on reducing body weight closer to ideal range for his height. Topical cream versus patch 2-3 times daily or at least at bedtime 3 weeks as needed. On allopurinol therapy 10/21/2017 Assessment & Plan (12/13/2024 8:19 AM EST): Take exactly as prescribed. Monitor for unusual reaction such as abdominal pain, diarrhea, skin rash, excessive bruising or skin discoloration etc. Return for periodic monitoring labs-standing orders in [facility]. Assessment & Plan (06/12/2024 8:40 AM EDT): Take exactly as prescribed. Monitor for unusual reaction such as abdominal pain, diarrhea, skin rash, excessive bruising or skin discoloration etc. Return for periodic monitoring labs-standing orders in [facility]. Assessment & Plan (02/10/2024 8:51 AM EDT): Take exactly as prescribed. Monitor for unusual reaction such as abdominal pain, diarrhea, skin rash, excessive bruising or skin discoloration etc. Return for periodic monitoring labs-standing orders in [facility]. Assessment & Plan (08/11/2023 8:59 AM EDT): Take exactly as prescribed. Monitor for unusual reaction such as abdominal pain, diarrhea, skin rash, excessive bruising or skin discoloration etc. Return for periodic monitoring labs-standing orders in [facility]. Assessment & Plan (01/27/2023 9:38 AM EDT): Take exactly as prescribed. Monitor for unusual reaction such as abdominal pain, diarrhea, skin rash, excessive bruising or skin discoloration etc. Return for periodic monitoring labs-standing orders in [facility]. Assessment & Plan (06/16/2022 7:20 PM EDT): Monitor for unusual reaction such as abdominal pain, diarrhea, skin rash, excessive bruising or skin discoloration etc. Keep well-hydrated. Return for monitoring labs-standing orders in [facility]. Assessment & Plan (11/27/2021 3:38 PM EST): Monitor for unusual reaction such as abdominal pain, diarrhea, skin rash, excessive bruising or skin discoloration etc. Assessment & Plan (03/13/2021 3:49 PM EDT): Monitor for unusual reaction such as abdominal pain, diarrhea, skin rash, excessive bruising or skin discoloration etc. Assessment & Plan (12/17/2020 5:59 PM EST): Monitor for unusual reaction such as abdominal pain, diarrhea, skin rash, excessive bruising or skin discoloration etc. Assessment & Plan (06/06/2020 4:27 PM EDT): Monitor for unusual reaction such as abdominal pain,diarrhea, skin rash, excessive bruising or skin discoloration etc. Assessment & Plan (12/07/2019 8:53 AM EST): Monitor for unusual reaction such as abdominal pain,diarrhea, skin rash, excessive bruising or skin discoloration etc. Assessment & Plan (06/20/2019 7:03 PM EDT): Monitor for unusual reaction such as abdominal pain,diarrhea, skin rash, excessive bruising or skin discoloration etc. Assessment & Plan (12/11/2018 8:36 PM EST): Monitor for unusual reaction such as abdominal pain,diarrhea, skin rash, excessive bruising or skin discoloration etc. On colchicine therapy 10/21/2017 Assessment & Plan (12/11/2018 8:37 PM EST): Monitor for possible side effects including diarrhea, muscle weakness or tenderness etc On statin therapy 10/21/2017 Assessment & Plan (12/13/2024 8:19 AM EST): Monitor for muscle tenderness, swelling and weakness Assessment & Plan (06/12/2024 8:40 AM EDT): Monitor for muscle tenderness, swelling and weakness Assessment & Plan (02/10/2024 8:51 AM EDT): Monitor for muscle tenderness, swelling and weakness Assessment & Plan (05/28/2022 2:42 PM EDT): Monitor for muscle tenderness, swelling and weakness Assessment & Plan (11/27/2021 3:38 PM EST): Monitor for muscle tenderness, swelling and weakness Assessment & Plan (03/13/2021 3:49 PM EDT): Monitor for muscle tenderness, swelling and weakness Assessment & Plan (12/12/2020 9:06 AM EST): Monitor for muscle tenderness, swelling and weakness Assessment & Plan (06/06/2020 4:27 PM EDT): Monitor for muscle tenderness, swelling and weakness Assessment & Plan (12/07/2019 8:53 AM EST): Monitor for muscle tenderness, swelling and weakness Assessment & Plan (12/11/2018 8:37 PM EST): Monitor for muscle tenderness, swelling and weakness Resolved Problems Problem Noted Date Diagnosed Date Resolved Date Class 1 obesity due to exces s calories with serious comorbidity and body mass index (BMI) of 34.0 to 34.9 in adult 06/12/2024 12/13/2024 Assessment & Plan (06/12/2024 8:51 AM EDT): Congratulations on 7 pounds weight loss from 273 in late January 2024 down to 267 today and keep it off. Continue diligent portion control. Limit concentrated sugars, saturated fats and calories in the diet. Keep well-hydrated. If unable to achieve expected goal consider formal dietary/nutritional support. Class 2 severe obesity due t o excess calories with serious comorbidity and body mass index (BMI) of 36.0 to 36.9 in adult 01/27/2023 Assessment & Plan (08/11/2023 9:31 AM EDT): Congratulations on 7 pounds weight loss from 281 lbs in January down to 274 lbs today. Continue diligent portion control. Limit concentrated sugars, saturated fats and calories in the diet. Keep well-hydrated. If unable to achieve expected goal consider formal dietary/nutritional support. Assessment & Plan (01/27/2023 9:38 AM EDT): Encouraged to continue diligent portion control. Limit concentrated sugars, saturated fats and calories in the diet. Keep well-hydrated. If unable to achieve expected goal consider formal dietary/nutritional support. Anticoagulated 07/21/2018 12/13/2024 Assessment & Plan (02/10/2024 8:51 AM EDT): Avoid falls, injuries and cuts. Monitor for excessive bruising and bleeding. Assessment & Plan (08/11/2023 8:58 AM EDT): Avoid falls, injuries and cuts. Monitor for excessive bruising and bleeding. Assessment & Plan (01/27/2023 9:31 AM EDT): Avoid falls, injuries and cuts. Monitor for excessive bruising and bleeding. Assessment & Plan (06/16/2022 7:21 PM EDT): Continue Eliquis exactly as prescribed. Avoid falls, injuries and cuts. Monitor for excessive bruising and bleeding. Assessment & Plan (11/27/2021 3:37 PM EST): Take Eliquis exactly as prescribed. Avoid falls, injuries and cuts. Monitor for excessive bruising and bleeding. Assessment & Plan (03/13/2021 3:51 PM EDT): Take Eliquis exactly as prescribed. Avoid falls, injuries and cuts. Monitor for excessive bruising and bleeding. Assessment & Plan (12/12/2020 9:07 AM EST): Take Eliquis exactly as prescribed. Avoid falls, injuries and cuts. Monitor for excessive bruising and bleeding. Assessment & Plan (06/06/2020 4:27 PM EDT): Take Eliquis exactly as prescribed. Avoid falls, injuries and cuts. Monitor for excessive bruising and bleeding. Assessment & Plan (12/07/2019 8:52 AM EST): Take Eliquis exactly as prescribed. Avoid falls, injuries and cuts. Monitor for excessive bruising and bleeding. Assessment & Plan (06/20/2019 7:04 PM EDT): Take Eliquis exactly as prescribed. Avoid falls, injuries and cuts. Monitor for excessive bruising and bleeding. Assessment & Plan (12/11/2018 8:38 PM EST): Take Eliquis exactly as prescribed. Avoid falls, injuries and cuts. Monitor for excessive bruising and bleeding. Class 1 obesity due to exces s calories without serious comorbidity with body mass index (BMI) of 34.0 to 34.9 in adult 10/24/201709/2023 Assessment & Plan (05/28/2022 2:39 PM EDT): Portion control. Limit concentrated sugars, saturated fats and calories in the diet. Keep well-hydrated. If unable to achieve expected goal consider formal dietary/nutritional support. Assessment & Plan (11/27/2021 3:37 PM EST): Portion control. Limit concentrated sugars, saturated fats and calories in the diet. Keep well-hydrated. If unable to achieve expected goal consider formal dietary/nutritional support. Assessment & Plan (03/13/2021 3:50 PM EDT): Portion control. Limit concentrated sugars, saturated fats and calories in the diet. Keep well-hydrated. If unable to achieve expected goal consider formal dietary/nutritional support. Assessment & Plan (12/12/2020 9:07 AM EST): Portion control. Limit concentrated sugars, saturated fats and calories in the diet. Keep well-hydrated. If unable to achieve expected goal consider formal dietary/nutritional support. Assessment & Plan (12/07/2019 8:52 AM EST): Portion control. Limit concentrated sugars, saturated fats and calories in the diet. Keep well-hydrated. If unable to achieve expected goal consider formal dietary/nutritional support. Assessment & Plan (06/20/2019 7:03 PM EDT): Congratulations on 6 pounds weight loss since last visit - Keep it off. Portion control. Limit concentrated sugars, saturated fats and calories in the diet. Keep well-hydrated. If unable to achieve expected goal consider formal dietary/nutritional support. Assessment & Plan (12/11/2018 8:35 PM EST): Portion control. Limit concentrated sugars, saturated fats and calories in the diet. Keep well-hydrated. If unable to achieve expected goal consider formal dietary/nutritional support. group home current use of aspirin 10/21/2017 11/27/2021 Assessment & Plan (12/11/2018 8:37 PM EST): Avoid falls, injuries and cuts. Monitor for excessive bruising and bleeding. Encounters Date Type Department Care Team Description 06/07/2025 8:05 AM EDT - 06/07/2025 11:59 PM EDT Hospital Encounter [facility] [address] [place] [id number] Carla Oh MD Discharge Disposition: Home or Self Care from Last 3 Months Immunizations Immunization Administration Dates Next Due COVID-19 (Pre-08/09) Pfizer Vaccine, mRNA, PF 07/29/2021 INFLUENZA, SPLIT VIRUS, TRIV ALENT W/ PRESERVATIVE IM 11/09/2010 Influenza High-Dose Quadriva lent Preservative Free IM 08/11/2023 Influenza Quadrivalent MDCK Preservative Free IM 09/09/2019 Influenza Quadrivalent Preservative Free IM 06/19,08/10/2021,08/08/2020 Influenza Quadrivalent w/ Preservative IM 2017,06/22/2017 Pneumococcal conjugate PCV20 05/25/2023 Pneumococcal polysaccharide PPSV23 05/07/2016 Td (adult),2 Lf Tetanus Toxo id, PF, Adsorbed 05/21/2022 Zoster recombinant 04/18/2020,09/09/2019 Family History Medical History Relation Comments Diabetes Father Alzheimer's disease Mother Relation Status Comments Father Mother Social History Tobacco Use Types Packs/Day Years Used Date Smoking Tobacco: Never Smokeless Tobacco: Never Tobacco Cessation:Counseling Given: Not Answered Alcohol Use Standard Drinks/Week Comments Yes 2 [...] on file Sexual Orientation Not on file Last Filed Vital Signs Vital Sign Reading Time Taken Comments Blood Pressure 128/70 12/13/2024 8:19 AM EST Pulse 69 06/12/2024 8:22 AM EDT Temperature 36.8 C (98.3 F) 07/16/2023 12:55 PM EDT Respiratory Rate 16 07/16/2023 12:5 5 PM EDT Oxygen Saturation 98% 06/12/2024 8:22 AM EDT Inhaled Oxygen Concentration - - Weight 123.7 kg (272 lb 9.6 oz) 12/13/2024 8:19 AM EST Height 188 cm (6' 2 ) 12/13/2024 8:19 AM EST Body Mass Index 35 12/13/2024 8:19 AM EST Plan of Treatment Upcoming Encounters Date Type Department Care Team (Late st Contact Info) Description 06/13/2025 8:30 AM EDT Office Visit [facility] Rheumatology [address] [place] [address] Carla Oh MD [address] [place] [address], [address] [place] [address] [email or web address] Due Date Last Done Comments TSH LEVEL 1958 DEPRESSION SCREENING 1970 HEPATITIS C SCREENING 1976 COLOGUARD 2003 COLONOSCOPY 2003 COLORECTAL CANCER SCREENING 2003 FIT TEST 2003 FOBT 2003 SIGMOIDOSCOPY 2003 VIRTUAL COLONOSCOPY 2003 RSV VACCINE (1 - Risk 60-74 years 1-dose series) 2018 COVID-19 VACCINE ( season) 2024 09/06/2023, 07/10/2022, 07/29/2021, Additional history exists BLOOD PRESSURE 06/12/2025 12/13/2024 CREATININE LEVEL 06/07/2026 06/07/2025, , 06/07/2024, Additional history exists POTASSIUM LEVEL 06/07/2026 06/07/2025, 11/19, 06/07/2024, Additional history exists LIPID PANEL 11/14/2026 11/14/2021, 11/14/2021 SCREENING FOR DIABETES 06/07/2028 06/07/2025 Adult Td,Tdap Booster 05/21/2032 05/21/2022 ZOSTER VACCINES Completed 04/18/2020, 09/09/2019 PNEUMOCOCCAL VACCINES (50+ years) Completed 05/25/2023, 05/07/2016 SMOKING STATUS SCREENING (Once After 26 Yrs) Completed 12/13/2024 HEPATITIS A VACCINES Aged Out No long er eligible based on patient's age to complete this topic HIB VACCINES Aged Out No longer eligi ble based on patient's age to complete this topic MENINGOCOCCAL VACCINES (ACWY) Aged Out No longer eligible based on patient's age to complete this topic MENINGOCOCCAL VACCINES (B) Aged Out N o longer eligible based on patient's age to complete this topic Medical Devices Not on file Procedures Procedure Name Priority Date/Time Associated Diagnosis [...] tophus On allopurinol therapy Anticoagulant long-term use LIPID PANEL Routine 11/14/2021 10:43 AM EST Hyperlipidemia, unspecified hyperlipidemia type from Last 3 Months or Most Recently Relevant to Health Maintenance Results * (ABNORMAL) Comprehensive metabolic panel (06/07/2025 8:05 AM EDT) SODIUM 133 133 - 146 mmol/L [facility] POTASSIUM 3.8 3.3 - 5.1 mmol/L [facility] CHLORIDE 96 96 - 108 mmol/L [facility] CO2 26 21 - 35 mmol/L [facility] BUN 21(H) 6 - 19 mg/dL [facility] CREATININE 1.20 0.5 - 1.5 mg/dL [facility] GLUCOSE 98 70 - 99 mg/dL [facility] ALBUMIN 4.3 3.9 - 4.8 g/dL [facility] TOTAL PROTEIN 7.5 6.5 - 8.0 g/dL [facility] CALCIUM 10.0 8.4 - 10.3 mg/dL [facility] ALKALINE PHOSPHATASE 107 39 - 117 U/L [facility] TOTAL BILIRUBIN 0.3 0.0 - 1.2 mg/dL [facility] AST 24 0 - 37 U/L [facility] ALT 27 0 - 40 U/L [facility] GLOBULIN 3.2 1 - 4.8 g/dL [facility] EGFR 66 >59 mL/min/1.7 3m2 [facility] Comment:Estimated glomerular filtration rate calculated using the CKD-EPI refit equation. ANION GAP 15 10 - 20 mmol/L [facility] Blood 06/07/2025 8:05 AM EDT 06/07/2025 8:08 AM EDT Carla Oh MD LAB BLOOD ORDERABLES Fin al Result Performing Organization Address City/[facility]/ZIP Co de Phone Number [address] [address] * Sedimentation rate (ESR) (06/07/2025 8:05 AM EDT) ESR 13 0 - 20 mm/h [facility] Blood 06/07/2025 8:05 AM EDT 06/07/2025 8:08 AM EDT Carla Oh MD LAB BLOOD ORDERABLES Fin al Result Performing Organization Address [facility]/ZIP Co de Phone Number [address] [address] * (ABNORMAL) CBC and differential (06/07/2025 8:05 AM EDT) WBC 6.60 4.00 - 11.00 K/uL [facility] RBC 4.40(L) 4.50 - 5.90 M/uL [facility] HGB 13.2(L) 13.5 - 17.5 g/dL [facility] HCT 39.4(L) 41.0 - 53.0 % [facility] PLT 283 150 - 450 K/uL [facility] MCV 89.5 80.0 - 100.0 fL [facility] MCH 30.0 27.0 - 31.0 pg [facility] MCHC 33.5 32.0 - 36.0 g/dL [facility] RDW 12.7 11.5 - 14.5 % [facility] MPV 8.6 8.4 - 12.0 fL [facility] NRBC 0.00 0.00 /100 WBCs [facility] ABSOLUTE NRBC 0.00 0.00 K/uL [facility] DIFF METHOD Auto [facility] NEUTS 71.4 48.0 - 76.0 % [facility] LYMPHS 14.5(L) 18.0 - 41.0 % [facility] MONOS 10.3 4.0 - 11.0 % [facility] EOS 2.7 0.0 - 5.0 % [facility] BASOS 0.5 0.0 - 1.5 % [facility] Granulocytes, immature (%) 0.6 0.0 - 0.9 % [facility] ABSOLUTE NEUTS 4.71 1.92 - 7.60 K/uL [facility] ABSOLUTE LYMPHS 0.96 0.72 - 4.10 K/uL [facility] ABSOLUTE MONOS 0.68 0.16 - 1.10 K/uL [facility] ABSOLUTE EOS 0.18 0.00 - 0.50 K/uL [facility] ABSOLUTE BASOS 0.03 0.00 - 0.15 K/uL [facility] Granulocytes, immature 0.04 0.00 - 0.09 K/uL [facility] Blood 06/07/2025 8:05 AM EDT 06/07/2025 8:08 AM EDT us Carla Oh MD LAB BLOOD ORDERABLES Fin al Result [address] [address] * C-Reactive Protein (06/07/2025 8:05 AM EDT) C REACTIVE PROTEIN <3.0 0.0 - 4.0 mg/L [facility] Blood 06/07/2025 8:05 AM EDT 06/07/2025 8:08 AM EDT us Carla Oh MD LAB BLOOD ORDERABLES Fin al Result Performing Organization Address [facility] Co de Phone Number [address] [address] * Uric acid (06/07/2025 8:05 AM EDT) URIC ACID 5.6 2.4 - 7.0 mg/dL [facility] Blood 06/07/2025 8:05 AM EDT 06/07/2025 8:08 AM EDT us Crala Oh MD LAB BLOOD ORDERABLES Fin al Result Performing Organization Address [facility] Co de Phone Number [address] [address] * (ABNORMAL) Lipid panel (11/14/2021 10:43 AM EST) HDL 34 mg/dL [facility] Comment: Interpretation <40 mg/dL: Low HDL cholesterol (major risk factor for CHD) Greater than or equal to 60 mg/dL: High HDL cholesterol ( negative risk factor for CHD) HDL - cholesterol is affected by a number of factors, e.g. smoking, excerise, hormones, sex and age. CHOLESTEROL 166 0 - 240 mg/dL [facility] TRIGLYCERIDES 172(H) 30 - 160 mg/dL [facility] LDL 98 50 - 129 mg/dL [facility] Comment: LDL levels in terms of risk for coronary heart disease: <100 mg/dL: Optimal 100-129 mg/dL: Near or above optimal 130-159 mg/dL: Borderline high 160-189 mg/dL: High >190 mg/dL: Very High CARDIAC RISK RATIO 4.9 3.4 - 5.0 C [facility] Blood 11/14/2021 10:4 3 AM EST 11/14/2021 10:45 AM EST us Rene Contreras MD LAB BLOOD ORDERABLES Final Resul t Performing Organization Address [facility] Co de Phone Number [address] [address] from Last 3 Months or Most Recently Relevant to Health Maintenance Insurance [facility] [employer] MEDICARE SUPPLEMENT MEDICARE PART A & B [facility] [employer] MEDICARE SUPPLEMENT MEDICARE PART A & B [facility] MEDICARE SUPPLEMENT [facility] MEDICARE SUPPLEMENT [facility] MEDICARE SUPPLEMENT MEDICARE PART A & B [facility] MEDICARE SUPPLEMENT [facility] SU[facility] MEDICARE PART A & B [employer] [facility] [employer] MEDICARE SUPPLEMENT MEDICARE PART A & B Member Subscriber Plan / Payer (Ef fective 2023-) Name:Scott Russo Member ID:[id number] Relation to Subscriber:Self Name:Scott Russo Subscriber ID:[id number] Payer ID:[id number] Group ID:Not on file Type:Medicare Address: [employer] [address] [employer] [facility] [employer] MEDICARE SUPPLEMENT MEDICARE PART A & B Care Teams Director Of Diversity And Inclusion Relationship Specialty Start Date End Date Ramon Baird MD [address] [place] [address] Drive [address] [place] [phone] PCP - General Internal Medicine 12/07/19 Additional Source Comments The information contained in this document represents components of the legal health record. It is not the complete legal health record.[facility]
--- OUTSIDE RECORDS SUMMARY | 2025-06-12 11:44 | XMS_ITS | Encounter Summary ---
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; Primary osteoarthritis involving multiple joints; On allopurinol therapy; On colchicine therapy; 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; On statin therapy Social History Tobacco Use Types Packs/Day Years [...] on file documented as of this encounter Plan of Treatment Upcoming Encounters Date Type Department Care Team (Late st Contact Info) Description 06/13/2025 8:30 AM EDT Office Visit [facility] Rheumatology [address] [place] [address] Carla Oh MD [address] [place] [address], [address] [place] [address] documented as of this encounter Procedures Procedure Name Priority Date/Time Associated Diagnosis Comments COMPREHENSIVE METABOLIC PANEL Routine 10/21/2017 10:50 AM EST 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 On allopurinol therapy On colchicine therapy 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 On statin therapy SEDIMENTATION RATE (ESR) Routine 10/21/2017 10:50 AM EST 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 On allopurinol therapy On colchicine therapy 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 On statin therapy CBC AND DIFFERENTIAL Routine 10/21/2017 10:50 AM EST 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 On allopurinol therapy On colchicine therapy half-way current use of aspirin On statin therapy C-REACTIVE PROTEIN Routine 10/21/2017 10 :50 AM EST 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 On allopurinol therapy On colchicine therapy half-way current use of aspirin On statin therapy URIC ACID Routine 10/21/2017 10:50 AM EST 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 On allopurinol therapy On colchicine therapy half-way current use of aspirin On statin therapy CPK (CREATINE KINASE) Routine 10/21/2017 10:50 AM EST 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 On allopurinol therapy On colchicine therapy 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 On statin therapy documented in this encounter Results * CPK (creatine kinase) (10/21/2017 10:50 AM EST) CREATINE KINASE 80 35 - 232 U/L [facility] Blood 10/21/2017 10:5 0 AM EST 10/21/2017 10:52 AM EST us Carla Oh MD LAB BLOOD ORDERABLES Fin al Result Performing Organization Address [facility]/ZIP Co de Phone Number [address] [address] * Uric acid (10/21/2017 10:50 AM EST) URIC ACID 5.4 2.4 - 7.0 mg/dL [facility] Blood 10/21/2017 10:5 0 AM EST 10/21/2017 10:52 AM EST us Carla Oh MD LAB BLOOD ORDERABLES Fin al Result Performing Organization Address [facility] Co de Phone Number [address] [address] * Sedimentation rate (ESR) (10/21/2017 10:50 AM EST) ESR 9 0 - 20 mm/h [facility] Blood 10/21/2017 10:5 0 AM EST 10/21/2017 10:52 AM EST us Carla Oh MD LAB BLOOD ORDERABLES Fin al Result Performing Organization Address [facility] Co de Phone Number [address] [address] * C-Reactive Protein (10/21/2017 10:50 AM EST) C REACTIVE PROTEIN 0.2 0 - 0.5 mg/L [facility] Blood 10/21/2017 10:5 0 AM EST 10/21/2017 10:52 AM EST Result Angelica Oh MD LAB BLOOD ORDERABLES Fin al Result Performing Organization Address [facility] Co de Phone Number [address] [address] * (ABNORMAL) Comprehensive metabolic panel (10/21/2017 10:50 AM EST) SODIUM 140 133 - 146 mmol/L [facility] POTASSIUM 4.2 3.3 - 5.1 mmol/L [facility] CHLORIDE 101 96 - 108 mmol/L [facility] CO2 28 21 - 35 mmol/L [facility] BUN 12 6 - 19 mg/dL [facility] CREATININE 0.70 0.5 - 1.5 mg/dL [facility] GLUCOSE 106(H) 70 - 99 mg/dL [facility] ALBUMIN 4.7 3.9 - 4.8 g/dL [facility] TOTAL PROTEIN 7.4 6.5 - 8.0 g/dL [facility] CALCIUM 9.7 8.4 - 10.3 mg/dL [facility] ALKALINE PHOSPHATASE 100 39 - 117 U/L [facility] TOTAL BILIRUBIN 0.3 0 - 1.2 mg/dL [facility] AST 29 0 - 37 U/L [facility] ALT 43(H) 0 - 40 U/L [facility] GLOBULIN 2.7 1 - 4.8 g/dL [facility] EGFR >60 >60 mL/min/1.7 3m2 [facility] Comment:Abnormal if <60. If patient is -[place], multiply the result by 1.21. ANION GAP 15 10 - 20 mmol/L [facility] Blood 10/21/2017 10:5 0 AM EST 10/21/2017 10:52 AM EST us Carla Oh MD LAB BLOOD ORDERABLES Fin al Result [address] [address] * (ABNORMAL) CBC and differential (10/21/2017 10:50 AM EST) WBC 7.79 3.40 - 11.20 K/uL [facility] RBC 4.94 4.50 - 5.50 M/uL [facility] HGB 14.3 13.0 - 17.0 g/dL [facility] HCT 42.6 40.0 - 51.0 % [facility] PLT 319 130 - 400 K/uL [facility] MCV 86.2 79.0 - 98.0 fL [facility] MCH 28.9 27.0 - 34.8 pg [facility] MCHC 33.6 31.5 - 36.0 g/dL [facility] RDW 12.5 10.8 - 14.6 % [facility] MPV 8.7(L) 9.4 - 12.4 fl [facility] NRBC 0.00 /100 WBCs [facility] ABSOLUTE NRBC 0.00 K/uL [facility] DIFF METHOD Auto [facility] NEUTS 70.0 45.30 - 77.70 % [facility] LYMPHS 13.5 12.30 - 39.70 % [facility] MONOS 11.4 4.10 - 12.80 % [facility] EOS 3.1 0 - 7.2 % [facility] BASOS 0.8 0 - 2.80 % [facility] Granulocytes, immature (%) 1.2(H) 0.0 - 0.9 % [facility] ABSOLUTE NEUTS 5.46 1.40 - 7.70 K/uL [facility] ABSOLUTE LYMPHS 1.05 0.60 - 3.20 K/uL [facility] ABSOLUTE MONOS 0.89(H) 0.11 - 0.59 K/uL [facility] ABSOLUTE EOS 0.24 0.01 - 0.50 K/uL [facility] ABSOLUTE BASOS 0.06 0.00 - 0.08 K/uL [facility] Granulocytes, immature 0.09(H) 0.00 - 0.05 K/uL [facility] Blood 10/21/2017 10:5 0 AM EST 10/21/2017 10:52 AM EST us Carla Oh MD LAB BLOOD ORDERABLES Fin al Result [facility] [address] [place] [address] documented in this encounter Visit Diagnoses Diagnosis 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 It is not the complete legal health record.[facility]
--- OUTSIDE RECORDS SUMMARY | 2025-06-12 11:44 | XMS_ITS | Patient Health Record ---
Author Organization [facility] Address [address] [place] [address] Care Team Providers Care Bicycle Assembler Name Role Phone Ramon Baird MD Primary [...] Problem Status W/U Status Risk Notes Problem 339072349 Colon cancer screening (Z12.11) Active confirmed Problem [id number] senior care (current) use of anticoagulants (Z79.01) Active confirmed Problem [id number] senior care curr ent use of diuretic (Z79.899) Active confirmed Vital Signs Temperature 97.3 degrees Fahrenheit 09/18/2024 Blood pressure diastolic 00 mm Hg 09/18/2024 Height 75 in 09/18/2024 Blood pressure systolic 000 mm Hg 09/18/2024 Weight 265 lbs 09/18/2024 BMI 33.12 kg/m2 09/18/2024 Encounters Encounter Location Date Provider Diagnosis [facility] Out[facility] [address] [place] [id number] 10/13/2024 Fortino Pagan Jr Colon cancer screening Z12.11 [facility] [address] [address] 09/18/2024 Fortino Pagan Jr Colon cancer screening Z12.11 and senior care current use of diuretic Z79.899 [facility] [address] [address] 10/04/2024 Fortino Pagan Jr Assessments Encounter Date [...] chlorthalidone the day before the procedure. 09/18/2024 terminal worker current use of diuretic (ICD-10 - Z79.899) [...] Date MEDICARE OF [place] [address] [place] [phone] [id number] AVI BLOCK Self - patient is the insured [employer] ([email or web address]) [address] [place] [address] [phone] [id number] AVI BLOCK Self - patient is the insured Medical (General) History Medical History History ICD Code Hypertension Hyperlipidemia Atrial fibrillation, cardioversion x2. Hypothyroidism Interstitial cystitis, CK D. stage a one , BPH Gout NEIL/CPAP Colonoscopy 09/05 tubular adenoma, five- year followup Surgical History Surgery Date(Month/Year) knee replacement ankle replacement shoulder surgery
== END 2025-06-12 12:03 | disposition home or self-care (01) ==
LOC: HO.HMCH 10:52
PROVIDERS: PCP Internal Medicine; Visit Provider Internal Medicine
DX: Z00.00 Encounter for general adult medical examination without abnormal findings (principal); I48.0 Paroxysmal atrial fibrillation; E66.9 Obesity, unspecified; Z68.33 Body mass index [BMI] 33.0-33.9, adult; I10 Essential (primary) hypertension; E78.00 Pure hypercholesterolemia, unspecified; R73.02 Impaired glucose tolerance (oral); E03.9 Hypothyroidism, unspecified; N40.1 Benign prostatic hyperplasia with lower urinary tract symptoms; R35.0 Frequency of micturition; G47.33 Obstructive sleep apnea (adult) (pediatric); L02.821 Furuncle of head [any part, except face]

== ENCOUNTER → 2025-06-12 10:51 | Outpatient (BNVA) | payer MEDICARE, OTHER, SELFPAY | PROVIDERS: PCP Internal Medicine; Visit Provider Internal Medicine | DX: Z00.00 Encounter for general adult medical examination without abnormal findings (principal); I10 Essential (primary) hypertension; I48.0 Paroxysmal atrial fibrillation; E66.9 Obesity, unspecified; Z68.33 Body mass index [BMI] 33.0-33.9, adult; E78.00 Pure hypercholesterolemia, unspecified; R73.02 Impaired glucose tolerance (oral); E03.9 Hypothyroidism, unspecified; N40.1 Benign prostatic hyperplasia with lower urinary tract symptoms; R35.0 Frequency of micturition; G47.33 Obstructive sleep apnea (adult) (pediatric); L02.821 Furuncle of head [any part, except face]; H91.90 Unspecified hearing loss, unspecified ear; D64.9 Anemia, unspecified; Z71.3 Dietary counseling and surveillance | CPT/HCPCS: 99397 ==

== ENCOUNTER 2025-10-02 07:46 | Outpatient (REF) | payer MEDICARE, OTHER, SELFPAY ==
--- OUTSIDE RECORDS SUMMARY | 2024-10-13 05:30 | XMS_ITS ---
Author Organization [facility] Address [address] [place] [id number] Care Team Providers Care Appraiser Timber Name Role Phone Ramon Baird MD Primary Care Provider Fortino Lewis Jr [phone] REASON FOR VISIT screening Encounters Encounter Location Date Provider Diagnosis [facility] Outpatient [address] [place] [id number] 10/13/2024 Fortino Pagan Jr Colon cancer screening Z12.11 Assessments Encounter Date Diagnosis (ICD Code) Assessment Notes Treatment Notes Treatment Clinical Notes Section Notes 10/13/2024 Colon cancer screening (ICD-10 - Z12.11) Plan Of Treatment No Information Progress Notes * AVI BLOCKDOB:1960 (65 yo M)Acc No.[id number]:10/13/2024 COLON WITH MAC Patient: AVI OVIEDO Provider: Marco A Pagan MD :1960 A ge:64 Y S ex:Male Date:10/13/2024 Address[address] [id number] Pcp:Ramon Baird MD Subjective: * Chief Complaints: * S creening Assessment: * Assessment: 1. C olon cancer screening - Z12.11 (Primary) Plan: * Procedure Codes: G 0105 COLOREC CANCR SCR; COLNSCPY HI [id number] INTRVL 3+YRS PTS CLNSCP [id number] RCMND FLW-UP 10 YRS DOCD Billing Information: * Procedure Codes: G0105 COLOREC CANCR SCR; COLNSCPY HI RISK. 0529F INTRVL 3+YRS PTS CLNSCP DOCD. 0528F RCMND FLW-UP 10 YRS DOCD. * The named appointment provid er may or may not be the originator of this progress note, and it is not deemed complete until electronically signed by the appointment provider. Sign off status: Pending * Provider: Marco A Pagan MD Date: 12/14/2023 Generated for Michelle hemphill/Allie/Reeitting on: 12/03/2024 07:52 AM EST
--- OUTSIDE RECORDS SUMMARY | 2025-10-02 07:51 | XMS_ITS | Clinical Summary ---
Author Organization [address] [place] [address] Address [address] [place] [address] Phone Care Team Providers Care Check Scaler Name Role Phone Ramon Baird MD Primary Care Provider [phone] Allergies No known active allergies Medications amitriptyline [...] TABLET DAILY 45 tablet 2 01/08/2025 Active carvediloL (COREG) 25 mg tablet TAKE 1 AND 1/2 TABLETS TWICE DAILY WITH MEALS 270 tablet 3 05/16/2025 Active flecainide (TAMBOCOR) 100 mg tablet TAKE 1 TABLET TWICE A DAY 180 tablet 3 05/16/2025 Active apixaban (Eliquis) 5 mg tablet TAKE 1 TABLET TWICE A DAY 180 tablet 3 06/05/2025 Active Active Problems Problem Noted Date Diagnosed Date Ascending aorta dilation 06/07/2023 Overview (07/31/2024): Last Assessment & Plan: Stable. [...] Tachycardia 12/10/2020 Overview (07/31/2024): Tachycardia Atrial fibrillation 10/08/2020 Overview (07/31/2024): first diagnosed in 2013, with [...] EDT): Status post 2 ablation procedures almost [id number]. Unfortunately, he had recurrent A-fib fairly quickly [...] Last Done Comments Colorectal Cancer Screening: Colonoscopy 1960 Hepatitis C Screening 09/26/2022 Medicare Annual Wellness Visit 09/26/2022 Social Influencers of Health Screening 09/26/2022 Falls Risk Assessment 2023 Depression Screening 10/18/2024 COVID-19 Vaccine ( season) 2025 09/06/2023, 07/10/2022, 07/29/2021, Additional history exists Influenza Vaccine (#1) 2025 , 08/11/2023, 07/10/2022, [...] Results * Annual BMP Blood Test (06/07/2024) Annual BMP Blood Test abstracted Historical Provider [...] Recently Relevant to Health Maintenance Insurance MEDICARE [facility] Care Teams Check Scaler Relationship Specialty Start Date End Date Ramon Baird MD [address] [place] [address] [address] [facility] [place] [address] PCP - General Internal Medicine 09/08/20
--- OUTSIDE RECORDS SUMMARY | 2025-10-02 07:51 | XMS_ITS | Patient Health Record ---
Author Organization [facility] Address [address] [place] [address] Care Team Providers Care [employer] Social [employer] Teacher Name Role Phone Ramon Baird MD Primary Care Provider Fortino Lewis Jr [phone] Allergies No Known Allergies Reason For Referral No Information Medications Medication SIG (Take, Route, Frequency, Duration) Notes Start Date End Date Status Folic Acid 1 MG Tablet TAKE 1 TABLET DAILY Oral; Duration: 90 E538,DEFICIENCY OF OTHER SPECIFIED B GROUP VITAMINS Active Flecainide Acetate 100 MG Tablet TAKE 1 TABLET TWICE A DAY Oral; Duration: 90 Active Carvedilol 25 MG Tablet Oral; Duration: 90 Active Levothyroxine Sodium 175 MCG Tablet 1 tablet on an empty stomach in the morning Orally Once a day; Duration: 30 day(s) Active Lisinopril 40 MG Tablet 1 tablet Orally Once a day; Duration: 30 day(s) Active Eliquis 5 MG Tablet as directed Orally BID Active Allopurinol 100 MG Tablet as directed Orally once a day Active Amitriptyline HCl 25 MG Tablet 1 tablet at bedtime Orally Once a day Active Atorvastatin Calcium 20 MG Tablet 1 tablet Orally Once a day; Duration: 30 day(s) Active MiraLax (colon prep) 8.3 ounce ((238) grams mixed with Gatorade or Crystal Light orally begin at 5:00 p.m. the day before the procedure; Duration: 1 day 10/05/2024 Active Chlorthalidone 25 MG Tablet Oral; Duration: 90 Active Immunizations Vaccine Route Administration Date Status Comme nts Influenza Unknown 09/04/2024 Administered Social History Tobacco Use: Social History Observation Description Date Details (start date - stop date) Never Smoker NA - NA Social History Drugs/Alcohol: Social Info Question Answer Notes Alcohol Screen Did you have a drink containing alcohol in the past year? Yes How often did you have a drink containing alcohol in the past year? 2 to 4 times a month (2 points) How many drinks did you have on a typical day when you were drinking in the past year? 1 or 2 drinks (0 point) How often did you have 6 or more drinks on one occasion in the past year? Never (0 point) Points 2 Interpretation Negative Tobacco Use: Social Info Question Answer Notes Tobacco Use/Smoking Patient is a nonsmoker Additional Details Category Social Info Options Details Miscellaneous: Marital status: Occupation: retired Problems Problem Type SNOMED Code ICD Code Onset Dates Problem Status W/U Status Risk Notes Problem Colon cancer screening (615825325) Colon cancer screening (Z12.11) Active confirmed Problem Long-term current use of anticoagulant (960876212) exterminator helper termite (current) use of anticoagulants (Z79.01) Active confirmed Problem Long-term current use of drug therapy (472777511) exterminator helper termite current use of diuretic (Z79.899) Active confirmed Encounters Encounter Location Date Provider Diagnosis [facility] [place] [place] Outpatient [address] [place] [id number] 10/13/2024 Fortino Pagan Jr Colon cancer screening Z12.11 [facility] [address] [place] [id number] 10/04/2024 Fortino Pagan Jr Assessments Encounter Date Diagnosis (ICD Code) Assessment Notes Treatment Notes Treatment Clinical Notes Section Notes 10/13/2024 Colon cancer screening (ICD-10 - Z12.11) Plan Of Treatment Future Test Test Name Order Date COLONOSCOPY 07/20/2019 COLONOSCOPY 10/05/2024 Insurance Providers Payer Name Payer Address Payer Phone Subscriber Number Group Number Insured Name Patient Relationship to Insured Coverage Start Date Coverage End Date MEDICARE OF [place] [address] [place] [id number] [phone] [id number] AVI BLOCK Self - patient is the insured [email or web address] [email or web address] [address] [place], [place] [id number] AVI BLOCK Self - patient is the insured Medical (General) History Medical History History ICD Code Hypertension Hyperlipidemia Atrial fibrillation, cardioversion x2. Hypothyroidism Interstitial cystitis, CK D. stage a one , BPH Gout NEIL/CPAP Colonoscopy 09/05 tubular adenoma, five- year followup Surgical History Surgery Date(Month/Year) knee replacement ankle replacement shoulder surgery
--- OUTSIDE RECORDS SUMMARY | 2025-10-02 07:52 | XMS_ITS | Clinical Summary ---
Author Organization [facility] Address [address] [address] Phone Care Team Providers Care Regulatory Affairs Strategy Specialist Name Role Phone Ramon Baird MD Primary Care Provider [phone] Allergies No known active allergies Medications atorvastatin [...] 1 tablet by mouth daily. 11/22/2020 Active folic acid (FOLVITE) 1 MG tablet TAKE 1 TABLET DAILY Oral for 90 Active amoxicillin (AMOXIL) 500 MG capsule TAKE 4 CAPS ORALLY 1 HOUR BEFORE THE PROCEDURE. 11/27/2024 Active amLODIPine (NORVASC) 10 MG tablet Take 10 mg by mouth daily. 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 Continue diligent portion control. Limit concentrated sugars, saturated fats and calories in the diet. Keep well-hydrated. If unable to achieve expected goal consider formal dietary/nutritional support. Assessment & Plan (06/12/2024 8:51 AM EDT): Congratulations on 7 pounds weight loss from 273 in late January 2024 down to 267 today and keep it off. Continue diligent portion control. Limit concentrated sugars, saturated fats and calories in the diet. Keep well-hydrated. If unable to achieve expected goal consider formal dietary/nutritional support. Anticoagulant long-term use 07/16/202306/19 Assessment & Plan (06/13/2025 8:28 AM EDT): Avoid falls, injuries and cuts. Monitor for excessive bruising and bleeding. I reminded him to avoid taking any NSAIDs while on Eliquis Assessment & Plan (12/13/2024 8:19 AM EST): [...] without t ophus 10/21/2017 Assessment & Plan (06/13/2025 8:47 AM EDT): Clinically and laboratory landeros stable. Continue diligent daily allopurinol intake, proper hydration and low purine diet. Get labs monitoring safety and efficacy of allopurinol therapy prior to next visit in 6 months. Strategy for acute gouty attack reviewed and reminded to avoid NSAIDs while on Eliquis. Switch ibuprofen to celebrex only if absolutely needed due to chronic anticoagulation with Eliquis Follow low purine, low calories and low-cholesterol diet. Encouraged to be careful around holidays with richer diet, gravies in addition to alcohol. Avoid falls and injuries. Assessment & Plan (12/13/2024 8:18 AM EST): [...] involving multiple joints 10/21/2017 Assessment & Plan (06/13/2025 8:27 AM EDT): Continue diligent joint protection, energy conservation. Avoid falls, injuries, overuse. Work on reducing body weight closer to ideal range for his height. Topical cream versus patch 2-3 times daily or at least at bedtime 3 weeks as needed. Use splints, assistive devices as needed. Call if problems or questions. Assessment & Plan (12/13/2024 8:18 AM EST): [...] On allopurinol therapy 10/21/2017 Assessment & Plan (06/13/2025 8:27 AM EDT): Take exactly as prescribed. Monitor for unusual reaction such as abdominal pain, diarrhea, skin rash, excessive bruising or skin discoloration etc. Return for periodic monitoring labs-standing orders in [facility]. Assessment & Plan (12/13/2024 8:19 AM EST): Take exactly as prescribed. Monitor for unusual reaction such as abdominal pain, diarrhea, skin rash, excessive bruising or skin discoloration etc. Return for periodic monitoring labs-standing orders in [facility]. Assessment & Plan (06/12/2024 8:40 AM EDT): Take exactly as prescribed. Monitor for unusual reaction such as abdominal pain, diarrhea, skin rash, excessive bruising or skin discoloration etc. Return for periodic monitoring labs-standing orders in [facility]. Assessment & Plan (02/10/2024 8:51 AM EDT): Take exactly as prescribed. Monitor for unusual reaction such as abdominal pain, diarrhea, skin rash, excessive bruising or skin discoloration etc. Return for periodic monitoring labs-standing orders in [facility]. Assessment & Plan (08/11/2023 8:59 AM EDT): Take exactly as prescribed. Monitor for unusual reaction such as abdominal pain, diarrhea, skin rash, excessive bruising or skin discoloration etc. Return for periodic monitoring labs-standing orders in [facility]. Assessment & Plan (01/27/2023 9:38 AM EDT): Take exactly as prescribed. Monitor for unusual reaction such as abdominal pain, diarrhea, skin rash, excessive bruising or skin discoloration etc. Return for periodic monitoring labs-standing orders in [facility]. Assessment & Plan (06/16/2022 7:20 PM EDT): Monitor for unusual reaction such as abdominal pain, diarrhea, skin rash, excessive bruising or skin discoloration etc. Keep well-hydrated. Return for monitoring labs-standing orders in [facility]. Assessment & Plan (11/27/2021 3:38 PM EST): [...] On colchicine therapy 10/21/2017 Assessment & Plan (06/13/2025 8:28 AM EDT): Monitor for possible side effects including diarrhea, muscle weakness or tenderness etc Assessment & Plan (12/11/2018 8:37 PM EST): Monitor for possible side effects including diarrhea, muscle weakness or tenderness etc On statin therapy 10/21/2017 Assessment & Plan (06/13/2025 8:47 AM EDT): Monitor for muscle tenderness, swelling and weakness Assessment & Plan (12/13/2024 8:19 AM EST): [...] Noted Date Diagnosed Date Resolved Date Class 2 severe obesity due t [...] achieve expected goal consider formal dietary/nutritional support. [facility] current use of aspirin 10/21/2017 11/27/2021 Assessment & Plan (12/11/2018 8:37 PM EST): Avoid falls, injuries and cuts. Monitor for excessive bruising and bleeding. Immunizations Immunization Administration Dates Next Due COVID-19 [...] Sign Reading Time Taken Comments Blood Pressure 114/70 06/13/2025 8:26 AM EDT Pulse 76 06/13/2025 8:26 AM EDT Temperature 36.8 C (98.3 F) 07/16/2023 12:55 PM EDT Respiratory Rate 16 07/16/2023 12:5 5 PM EDT Oxygen Saturation 97% 06/13/2025 8:26 AM EDT Inhaled Oxygen Concentration - - Weight 120.8 kg (266 lb 6.4 oz) 06/13/2025 8:26 AM EDT Height 188 cm (6' 2 ) 06/13/2025 8:26 AM EDT Body Mass Index 34.2 06/13/2025 8:26 AM EDT Plan of Treatment Upcoming Encounters Date Type Department Care Team (Late st Contact Info) Description 12/17/2025 8:30 AM EST Office Visit [facility] Rheumatology [address] [place] [address] [place] [address] Carla Oh MD [address] [place] [address], [address] [place] [address] [email or web address] Discounters Health Maintenance Due Date Last Done Comments TSH LEVEL 1958 DEPRESSION SCREENING 1970 HEPATITIS C SCREENING 1976 COLOGUARD 2003 COLONOSCOPY 2003 COLORECTAL CANCER SCREENING 2003 FIT TEST 2003 FOBT 2003 SIGMOIDOSCOPY 2003 VIRTUAL COLONOSCOPY 2003 INFLUENZA VACCINE (#1) 2025 , 08/11/2023, 07/10/2022, Additional history exists COVID-19 VACCINE ( season) 2025 09/06/2023, 07/10/2022, 07/29/2021, Additional history exists BLOOD PRESSURE 12/14/2025 06/13/2025 CREATININE LEVEL 06/07/2026 06/07/2025, , 06/07/2024, Additional history exists POTASSIUM LEVEL 06/07/2026 06/07/2025, 11/19, 06/07/2024, Additional history exists LIPID PANEL 11/14/2026 11/14/2021, 11/14/2021 SCREENING FOR DIABETES 06/07/2028 06/07/2025 Adult Td,Tdap Booster 05/21/2032 05/21/2022 RSV VACCINE (1 - 1-dose 75+ series) 2033 ZOSTER VACCINES Completed 04/18/2020, 09/09/2019 PNEUMOCOCCAL VACCINES (50+ years) Completed 05/25/2023, 05/07/2016 SMOKING STATUS SCREENING (Once After 26 Yrs) Completed 06/13/2025 HEPATITIS A VACCINES Aged Out No long [...] Date/Time Associated Diagnosis Comments COMPREHENSIVE METABOLIC PANEL (CMP) Routine 06/07/2025 8:05 AM EDT 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 On allopurinol therapy Anticoagulant long-term use LIPID PANEL Routine 11/14/2021 10:43 AM EST Hyperlipidemia, unspecified hyperlipidemia type from Last 3 Months or Most Recently Relevant to Health Maintenance Results * (ABNORMAL) Comprehensive metabolic panel (06/07/2025 8:05 AM EDT) SODIUM 133 133 - 146 mmol/L [facility] POTASSIUM 3.8 3.3 - 5.1 mmol/L [facility] CHLORIDE 96 96 - 108 mmol/L [facility] CO2 26 21 - 35 mmol/L [facility] BUN 21(H) 6 - 19 mg/dL [facility] CREATININE 1.20 0.5 - 1.5 mg/dL [facility] GLUCOSE 98 70 - 99 mg/dL [facility] ALBUMIN 4.3 3.9 - 4.8 g/dL [facility] TOTAL PROTEIN 7.5 6.5 - 8.0 g/dL [facility] CALCIUM 10.0 8.4 - 10.3 mg/dL [facility] ALKALINE PHOSPHATASE 107 39 - 117 U/L [facility] TOTAL BILIRUBIN 0.3 0.0 - 1.2 mg/dL [facility] AST 24 0 - 37 U/L [facility] ALT 27 0 - 40 U/L [facility] GLOBULIN 3.2 1 - 4.8 g/dL [facility] EGFR 66 >59 mL/min/1.7 3m2 [facility] Comment:Estimated glomerular filtration rate calculated using the CKD-EPI refit equation. ANION GAP 15 10 - 20 mmol/L [facility] Blood 06/07/2025 8:05 AM EDT 06/07/2025 8:08 AM EDT us Carla Oh MD LAB BLOOD BKR ORDERABLES Final Result [facility] [address] [place] [address] * (ABNORMAL) Lipid panel (11/14/2021 10:43 AM EST) HDL 34 mg/dL [facility] Comment: Interpretation <40 mg/dL: Low HDL cholesterol (major risk factor for CHD) Greater than or equal to 60 mg/dL: High HDL cholesterol ( negative risk factor for CHD) HDL - cholesterol is affected by a number of factors, e.g. smoking, excerise, hormones, sex and age. CHOLESTEROL 166 0 - 240 mg/dL [facility] TRIGLYCERIDES 172(H) 30 - 160 mg/dL [facility] LDL 98 50 - 129 mg/dL [facility] Comment: LDL levels in terms of risk for coronary heart disease: <100 mg/dL: Optimal 100-129 mg/dL: Near or above optimal 130-159 mg/dL: Borderline high 160-189 mg/dL: High >190 mg/dL: Very High CARDIAC RISK RATIO 4.9 3.4 - 5.0 [facility] Blood 11/14/2021 10:4 3 AM EST 11/14/2021 10:45 AM EST us Rene Contreras MD LAB BLOOD BKR ORDERABLES Final R esult [facility] [address] [place] [address] from Last 3 Months or Most Recently Relevant to Health Maintenance Insurance [facility] EXTENSION MEDICARE SUPPLEMENT MEDICARE PART A & B [facility] EXTENSION MEDICARE SUPPLEMENT MEDICARE PART A & B Member Subscriber Plan / Payer (Ef fective 2023-Present) Name:Scott Russo Member ID:[id number] Relation to Subscriber:Self Name:Scott Russo Subscriber ID:[id number] Payer ID:[id number] Group ID:Not on file Type:Medicare Address: [employer] [address] [facility] EXTENSION MEDICARE [place] [address] [place] [address] MEDICARE SUPPLEMENT [facility] MEDICARE SUPPLEMENT MEDIC[place] PART A [place] [id number] [facility] MEDICARE SUPPLEMENT [facility] MEDICARE SUPPLEMENT MEDICARE PART A & B [facility] [employer] MEDICARE SUPPLEMENT MEDICARE PART A & B [facility] MEDICARE SUPPLEMENT MEDICARE PART A & B Care Teams Regulatory Affairs Strategy Specialist Relationship Specialty Start Date End Date Ramon Baird MD [address] [place] [address] PCP - General Internal Medicine 12/07/19 Additional Source Comments The information contained in this document represents components of the legal health record. It is not the complete legal health record.[facility]
--- OUTSIDE RECORDS SUMMARY | 2025-10-02 07:52 | XMS_ITS | Encounter Summary ---
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; Primary osteoarthritis involving multiple joints; On allopurinol therapy; On colchicine therapy; 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; On statin therapy [...] Description 12/17/2025 8:30 AM EST Office Visit [facility] Rheumatology [address] [place] [address] [place] [address] Carla Oh MD [address] [place] [address], [address] [place] [address] documented as of this encounter Procedures Procedure Name Priority Date/Time Associated Diagnosis Comments COMPREHENSIVE METABOLIC PANEL (CMP) Routine 10/21/2017 10:50 AM EST 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 On allopurinol therapy On colchicine therapy long-term current use of aspirin On statin therapy SEDIMENTATION RATE (ESR) Routine 10/21/2017 10:50 AM EST 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 On allopurinol therapy On colchicine therapy long-term current use of aspirin On statin therapy CBC AND DIFFERENTIAL Routine 10/21/2017 10:50 AM EST 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 On allopurinol therapy On colchicine therapy long-term current use of aspirin On statin therapy C-REACTIVE PROTEIN (CRP) Routine 10/21/2017 10:50 AM EST 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 On allopurinol therapy On colchicine therapy 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 On statin therapy URIC ACID Routine 10/21/2017 10:50 AM EST 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 On allopurinol therapy On colchicine therapy long-term current use of aspirin On statin therapy CREATINE KINASE (CK) Routine 10/21/2017 10:50 AM EST 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 On allopurinol therapy On colchicine therapy 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 On statin therapy documented in this encounter Results * CPK (creatine kinase) (10/21/2017 10:50 AM EST) CREATINE KINASE 80 35 - 232 U/L [facility] Blood 10/21/2017 10:5 0 AM EST 10/21/2017 10:52 AM EST us Carla Oh MD LAB BLOOD BKR ORDERABLES Final Result Performing Organization Address City/[facility]/ZIP Co de Phone Number [address] [address] * Uric acid (10/21/2017 10:50 AM EST) URIC ACID 5.4 2.4 - 7.0 mg/dL [facility] Blood 10/21/2017 10:5 0 AM EST 10/21/2017 10:52 AM EST us Carla Oh MD LAB BLOOD BKR ORDERABLES Final Result Performing Organization Address [facility] Co de Phone Number [address] [address] * Sedimentation rate (ESR) (10/21/2017 10:50 AM EST) ESR 9 0 - 20 mm/h [facility] Blood 10/21/2017 10:5 0 AM EST 10/21/2017 10:52 AM EST us Carla Oh MD LAB BLOOD BKR ORDERABLES Final Result Performing Organization Address [facility] Co de Phone Number [address] [address] * C-Reactive Protein (10/21/2017 10:50 AM EST) C REACTIVE PROTEIN 0.2 0 - 0.5 mg/L [facility] Blood 10/21/2017 10:5 0 AM EST 10/21/2017 10:52 AM EST us Carla Oh MD LAB BLOOD BKR ORDERABLES Final Result Performing Organization Address [facility]/ZIP Co de Phone Number [address] [address] * (ABNORMAL) Comprehensive metabolic panel (10/21/2017 10:50 AM EST) SODIUM 140 133 - 146 mmol/L [facility] POTASSIUM 4.2 3.3 - 5.1 mmol/L [facility] CHLORIDE 101 96 - 108 mmol/L [facility] CO2 28 21 - 35 mmol/L [facility] BUN 12 6 - 19 mg/dL [facility] CREATININE 0.70 0.5 - 1.5 mg/dL [facility] GLUCOSE 106(H) 70 - 99 mg/dL [facility] ALBUMIN 4.7 3.9 - 4.8 g/dL [facility] TOTAL PROTEIN 7.4 6.5 - 8.0 g/dL [facility] CALCIUM 9.7 8.4 - 10.3 mg/dL [facility] ALKALINE PHOSPHATASE 100 39 - 117 U/L [facility] TOTAL BILIRUBIN 0.3 0 - 1.2 mg/dL [facility] AST 29 0 - 37 U/L [facility] ALT 43(H) 0 - 40 U/L [facility] GLOBULIN 2.7 1 - 4.8 g/dL [facility] EGFR >60 >60 mL/min/1.7 3m2 [facility] Comment:Abnormal if <60. If patient is -Cameroonian, multiply the result by 1.21. ANION GAP 15 10 - 20 mmol/L [facility] Blood 10/21/2017 10:5 0 AM EST 10/21/2017 10:52 AM EST us Carla Oh MD LAB BLOOD BKR ORDERABLES Final Result [facility] [address] [place] [address] * (ABNORMAL) CBC and differential (10/21/2017 10:50 AM EST) WBC 7.79 3.40 - 11.20 K/uL [facility] RBC 4.94 4.50 - 5.50 M/uL [facility] HGB 14.3 13.0 - 17.0 g/dL [facility] HCT 42.6 40.0 - 51.0 % [facility] PLT 319 130 - 400 K/uL [facility] MCV 86.2 79.0 - 98.0 fL [facility] MCH 28.9 27.0 - 34.8 pg [facility] MCHC 33.6 31.5 - 36.0 g/dL [facility] RDW 12.5 10.8 - 14.6 % [facility] MPV 8.7(L) 9.4 - 12.4 fl [facility] NRBC 0.00 /100 WBCs [facility] ABSOLUTE NRBC 0.00 K/uL [facility] DIFF METHOD Auto [facility] NEUTS 70.0 45.30 - 77.70 % [facility] LYMPHS 13.5 12.30 - 39.70 % [facility] MONOS 11.4 4.10 - 12.80 % [facility] EOS 3.1 0 - 7.2 % [facility] BASOS 0.8 0 - 2.80 % [facility] Granulocytes, immature (%) 1.2(H) 0.0 - 0.9 % [facility] ABSOLUTE NEUTS 5.46 1.40 - 7.70 K/uL [facility] ABSOLUTE LYMPHS 1.05 0.60 - 3.20 K/uL [facility] ABSOLUTE MONOS 0.89(H) 0.11 - 0.59 K/uL [facility] ABSOLUTE EOS 0.24 0.01 - 0.50 K/uL [facility] ABSOLUTE BASOS 0.06 0.00 - 0.08 K/uL [facility] Granulocytes, immature 0.09(H) 0.00 - 0.05 K/uL [facility] Blood 10/21/2017 10:5 0 AM EST 10/21/2017 10:52 AM EST us Carla Oh MD LAB BLOOD BKR ORDERABLES Final Result [facility] [address] [place] [address] documented in this encounter Visit Diagnoses Diagnosis 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 It is not the complete legal health record.[facility]
== END 2025-10-02 07:47 | disposition home or self-care (01) ==
LOC: HO.SH 07:46
PROVIDERS: Visit Provider Internal Medicine
DX: H90.3 Sensorineural hearing loss, bilateral (principal)
CPT/HCPCS: 92557